=== PATIENT | female | born 1980 | race Caucasian/White ===

== ENCOUNTER 2020-07-07 07:18 | Emergency (ER) | payer OTHER ==
[2020-07-07 07:24] VITALS: RESP 18; TEMP 98.2
--- NOTE | 2020-07-07 07:43 | ED ---
Abdominal Pain HPI - General Chief Complaint: Abdominal Pain Stated Complaint: Abdominal Pain, nausea Time Seen by Provider: 07/07/20 07:26 Source: patient Mode of arrival: ambulatory Limitations: no limitations - History of Present Illness Initial Comments: 40yo female with hx of pancreatitis, cholecystectomy, "stones in my stool"- currently following [facility], gastric sleeve, chronic chest pain/neck pain with hx of clean cardiac catheterization presenting to the ER today for cc of abdominal pain. pt statse she has had upper abdominal pain since sunday, pt states that she thought it would go away by now. pateint states that she has epigastric pain and when in triage it was more left sided but right now during history taking mroe right sided. she states she is seeing GI at [facility] for "stone in my stool" and they are currently running tests. Patient has abdominal MRI in April. Patient denies bloody or dark stools, admits to nausea without vom iting. Increased pain wtih eating. Denies chest pain, dyspnea. Patient appears well nontoxic in no acute distress. - Related Data Allergies Allergy/AdvReac Type Severity Reaction Status Date / Time amoxicillin [From Augmentin] AdvReac Nausea & Verified 07/07/20 07:24 Vomiting clavulanic acid AdvReac Nausea & Verified 07/07/20 07:24 [From Augmentin] Vomiting dicyclomine [From Bentyl] AdvReac Rash/Hives Verified 07/07/20 07:24 morphine AdvReac Abdominal Verified 07/07/20 07:24 Pain Albxshx-Rel-Kiq Reductase AdvReac joint Verified 07/07/20 07:24 Inhibitor inflammation Sulfa (Sulfonamide AdvReac Abdominal Verified 07/07/20 07:24 Antibiotics) Pain tree nut [Nut] AdvReac Abdominal Verified 07/07/20 07:24 Pain Review of Systems ROS Statement: Those systems with pertinent positive or pertinent negative responses have been documented in the HPI. ROS Other: All systems not noted in ROS Statement are negative. Past Medical History Past Medical History: Chest Pain / Angina, GERD/Reflux, Hypertension, Rheumatoid Arthritis (RA) Additional Past Medical History / Comment(s): obesity History of Any Multi-Drug Resistant Organisms: MRSA Date of last positivie culture/infection: 2005 Past Surgical History: Cholecystectomy, Hysterectomy Additional Past Surgical History / Comment(s): gastric sleeve,eye Past Psychological History: ADD/ADHD, Anxiety Smoking Status: Never smoker Past Alcohol Use History: None Reported Past Drug Use History: None Reported General Exam - General Exam Comments Initial Comments: General: The patient is awake and alert, in no distress Eye: +3 mm pupils are equal, round and reactive to light, extra-ocular movements are intact. No nystagmus. There is normal conjunctiva bilaterally. No signs of icterus. Ears, nose, mouth and throat: There are moist mucous membranes and no oral lesions. Neck: The neck is supple, there is no tenderness or JVD. Cardiovascular: There is a regular rate and rhythm. No murmur, rub or gallop is appreciated. Respiratory: Lungs are clear to auscultation, respirations are non-labored, breath sounds are equal. No wheezes, stridor, rales, or rhonchi. Gastrointestinal: Soft, non-distended, mild epigastric/upper abdominal pain, abdomen without masses or organomegaly noted. There is no rebound or guarding present. Musculoskeletal: Normal ROM, no tenderness. Strength 5/5. Sensation intact. Radial and DP pulses equal bilaterally 2+. Neurological: A&O x 3. CN II-XII intact grossly, There are no obvious motor or sensory deficits. Coordination appears grossly intact. Speech is normal. Skin: Skin is warm and dry and no rashes or lesions are noted. Psychiatric: Cooperative, appropriate mood & affect, normal judgment. Limitations: no limitations Course Vital Signs 07/07/20 07/07/20 07/07/20 07:20 08:24 09:28 Temperature 98.2 F Pulse Rate 78 83 72 Respiratory 18 18 18 Rate Blood Pressure 135/90 142/95 140/99 O2 Sat by Pulse 98 98 97 Oximetry Medical Decision Making - Medical Decision Making 40 year old feel presenting for reproducible abdominal pain. Labs stable. Lipase WNL. Hx of cholecystectomy. (-) murphys sign. patient CT (-). Pt appears well nontoxic. vs wihin no critical limits. at this time i feel pt is stable for discharge with pcp and GI f/u. return for worsening symptoms . Dr damian agreeable to care plan. - Lab Data Result diagrams: 07/07/20 07:45 07/07/20 07:45 Lab Results 07/07/20 07/07/20 07/07/20 Range/Units 07:45 07:45 07:45 WBC 5.0 (3.8-10.6) k/uL RBC 4.47 (3.80-5.40) m/uL Hgb 12.8 (11.4-16.0) gm/dL Hct 36.7 (34.0-46.0) % MCV 82.1 (80.0-100.0) fL MCH 28.6 (25.0-35.0) pg MCHC 34.8 (31.0-37.0) g/dL RDW 14.0 (11.5-15.5) % Plt Count 287 (150-450) k/uL MPV 7.4 Neutrophils % 58 % Lymphocytes % 33 % Monocytes % 5 % Eosinophils % 3 % Basophils % 1 % Neutrophils # 2.9 (1.3-7.7) k/uL Lymphocytes # 1.7 (1.0-4.8) k/uL Monocytes # 0.2 (0-1.0) k/uL Eosinophils # 0.1 (0-0.7) k/uL Basophils # 0.0 (0-0.2) k/uL Sodium 137 (137-145) mmol/L Potassium 4.2 (3.5-5.1) mmol/L Chloride 104 (98-107) mmol/L Carbon Dioxide 25 (22-30) mmol/L Anion Gap 8 mmol/L BUN 11 (7-17) mg/dL Creatinine 0.87 (0.52-1.04) mg/dL Est GFR (CKD-EPI)AfAm >90 (>60 ml/min/1.73 sqM) Est GFR (CKD-EPI)NonAf 84 (>60 ml/min/1.73 sqM) Glucose 103 H (74-99) mg/dL Plasma Lactic Acid Amador 1.1 (0.7-2.0) mmol/L Calcium 8.9 (8.4-10.2) mg/dL Total Bilirubin 0.4 (0.2-1.3) mg/dL AST 26 (14-36) U/L ALT 25 (4-34) U/L Alkaline Phosphatase 73 (38-126) U/L Troponin I (0.000-0.034) ng/mL Total Protein 7.1 (6.3-8.2) g/dL Albumin 3.8 (3.5-5.0) g/dL Amylase 46 (30-110) U/L Lipase 102 (23-300) U/L Urine Color Urine Appearance (Clear) Urine pH (5.0-8.0) Ur Specific [place] (1.001-1.035) Urine Protein (Negative) Urine Glucose (UA) (Negative) Urine Ketones (Negative) Urine Blood (Negative) Urine Nitrite (Negative) Urine Bilirubin (Negative) Urine Urobilinogen (<2.0) mg/dL Ur Leukocyte Esterase (Negative) 07/07/20 07/07/20 Range/Units 07:45 08:11 WBC (3.8-10.6) k/uL RBC (3.80-5.40) m/uL Hgb (11.4-16.0) gm/dL Hct (34.0-46.0) % MCV (80.0-100.0) fL MCH (25.0-35.0) pg MCHC (31.0-37.0) g/dL RDW (11.5-15.5) % Plt Count (150-450) k/uL MPV Neutrophils % % Lymphocytes % % Monocytes % % Eosinophils % % Basophils % % Neutrophils # (1.3-7.7) k/uL Lymphocytes # (1.0-4.8) k/uL Monocytes # (0-1.0) k/uL Eosinophils # (0-0.7) k/uL Basophils # (0-0.2) k/uL Sodium (137-145) mmol/L Potassium (3.5-5.1) mmol/L Chloride (98-107) mmol/L Carbon Dioxide (22-30) mmol/L Anion Gap mmol/L BUN (7-17) mg/dL Creatinine (0.52-1.04) mg/dL Est GFR (CKD-EPI)AfAm (>60 ml/min/1.73 sqM) Est GFR (CKD-EPI)NonAf (>60 ml/min/1.73 sqM) Glucose (74-99) mg/dL Plasma Lactic Acid Amador (0.7-2.0) mmol/L Calcium (8.4-10.2) mg/dL Total Bilirubin (0.2-1.3) mg/dL AST (14-36) U/L ALT (4-34) U/L Alkaline Phosphatase (38-126) U/L Troponin I <0.012 (0.000-0.034) ng/mL Total Protein (6.3-8.2) g/dL Albumin (3.5-5.0) g/dL Amylase (30-110) U/L Lipase (23-300) U/L Urine Color Yellow Urine Appearance Clear (Clear) Urine pH 7.5 (5.0-8.0) Ur Specific [place] 1.047 H (1.001-1.035) Urine Protein Negative (Negative) Urine Glucose (UA) Negative (Negative) Urine Ketones Negative (Negative) Urine Blood Negative (Negative) Urine Nitrite Negative (Negative) Urine Bilirubin Negative (Negative) Urine Urobilinogen <2.0 (<2.0) mg/dL Ur Leukocyte Esterase Negative (Negative) Disposition Clinical Impression: Abdominal pain, Nausea Disposition: HOME SELF-CARE Condition: Good Instructions (If sedation given, give patient instructions): Abdominal Pain (ED) Additional Instructions: Please use medication as discussed. Please follow-up with family doctor in the next 2 days. Please return to emergency room if the symptoms increase or worsen or for any other concerns. Is patient prescribed a controlled substance at d/c from ED?: No Referrals: Dot Walter MD [Primary Care Provider] - 1-2 days Time of Disposition: 09:04
[2020-07-07] MEDS ORDERED: HYDROmorphone 0.5 MG/0.5 ML SYRINGE IVP STA (07:52)
[2020-07-07] MEDS ORDERED: ONDANSETRON 4 MG/2 ML VIAL IVP STA (07:52)
[2020-07-07 08:04] LABS: Basophils % (A) 1 %; Eosinophils # (A) 0.1 k/uL (0-0.7); Eosinophils % (A) 3 %; HCT 36.7 % (34.0-46.0); HGB 12.8 gm/dL (11.4-16.0); Lymphocytes # (A) 1.7 k/uL (1.0-4.8); Lymphocytes % (A) 33 %; MCH 28.6 pg (25.0-35.0); MCHC 34.8 g/dL (31.0-37.0); MCV 82.1 fL (80.0-100.0); Mean Platelet Volume 7.4; Monocytes # (A) 0.2 k/uL (0-1.0); Monocytes % (A) 5 %; Neutrophils # (A) 2.9 k/uL (1.3-7.7); Neutrophils % (A) 58 %; Platelet Count 287 k/uL (150-450); RBC 4.47 m/uL (3.80-5.40)
[2020-07-07 08:16] LABS: ALT 25 U/L (4-34); AST 26 U/L (14-36); African American GFR (CKD) >90 (>60 ml/min/1.73 sqM); Albumin 3.8 g/dL (3.5-5.0); Alkaline Phosphatase 73 U/L (38-126); Amylase 46 U/L (30-110); Anion Gap 8 mmol/L; Blood Urea Nitrogen 11 mg/dL (7-17); Calcium 8.9 mg/dL (8.4-10.2); Carbon Dioxide 25 mmol/L (22-30); Chloride 104 mmol/L (98-107); Glucose 103 mg/dL (74-99); Lipase 102 U/L (23-300); Non-African American GFR(CKD) 84 (>60 ml/min/1.73 sqM); Potassium 4.2 mmol/L (3.5-5.1); Sodium 137 mmol/L (137-145); Total Bilirubin 0.4 mg/dL (0.2-1.3); Total Protein 7.1 g/dL (6.3-8.2)
--- NOTE | 2020-07-07 08:18 | CT ---
EXAMINATION TYPE: CT abdomen pelvis w con DATE OF EXAM: 07/07/2020 HISTORY: LUQ pain and epigastric pain. CT DLP: 2786.4mGycm Automated Exposure Control for Dose Reduction was Utilized. CONTRAST: CT scan of the abdomen and pelvis is performed without oral but with IV Contrast, patient injected wi th 100 mL of Isovue 300. COMPARISON: None. FINDINGS: LUNG BASES: No significant abnormality is appreciated. LIVER/GB: Liver is diffusely low dense consistent with diffuse fatty infiltration and/or underlying h epatocellular disease. Cholecystectomy clips are present. Liver size upper limits of normal. PANCREAS: No significant abnormality is seen. SPLEEN: Mild splenomegaly at 13.7 cm long axis coronal image 68. ADRENALS: No significant abnormality is seen. KIDNEYS: No significant abnormality is seen. BOWEL: Suboptimal evaluation of bowel without enteric contrast. Surgical changes from gastric sleeve procedure noted. No suspicious small or large bowel dilatation. Normal-appearing appendix. UTERUS/ADNEXA: Versus surgically absent or atrophic in appearance. Scattered pelvic phleboliths. LYMPH NODES: No greater than 1cm abdominal or pelvic lymph nodes are appreciated. OSSEOUS STRUCTURES: No significant abnormality is seen. OTHER: No significant additional abnormality is seen. IMPRESSION: No bowel obstruction. No acute findings are evident.
[2020-07-07 09:00] LABS: Appearance,Urine Clear (Clear); Bilirubin,Urine Negative (Negative); Blood,Urine Negative (Negative); Color,Urine Yellow; Glucose,Urine (UA) Negative (Negative); Ketones,Urine Negative (Negative); Leukocyte Esterase,Urine Negative (Negative); Nitrite,Urine Negative (Negative); PH, Urine 7.5 (5.0-8.0); Protein,Urine Negative (Negative); Urobilinogen,Urine <2.0 mg/dL (<2.0)
[2020-07-07 09:01] LABS: Specific Gravity,Urine 1.047 (1.001-1.035)
[2020-07-07 09:30] VITALS: BP 140/99; PULSE 72
== END 2020-07-07 09:27 | disposition home or self-care (01) ==
LOC: EC 07:18
DX: R10.10 Upper abdominal pain, unspecified (principal); R11.0 Nausea; E66.9 Obesity, unspecified; Z68.42 Body mass index [BMI] 45.0-49.9, adult; I10 Essential (primary) hypertension; Z88.0 Allergy status to penicillin; Z88.1 Allergy status to other antibiotic agents; Z88.5 Allergy status to narcotic agent; Z88.8 Allergy status to other drugs, medicaments and biological substances; Z91.048 Other nonmedicinal substance allergy status; Z88.2 Allergy status to sulfonamides; Z90.49 Acquired absence of other specified parts of digestive tract
CPT/HCPCS: 36415; 93005; 80053; 82150; 83605; 83690; 84484; 85025; 81003; 74177; 99284; 96374; 96375; J2405; J1170; Q9967

== ENCOUNTER → 2020-07-13 | Outpatient (CLI) | payer OTHER ==
--- NOTE | 2020-07-13 17:37 | EEG ---
ELECTROENCEPHALOGRAM REPORT DATE OF SERVICE: 07/13/2020 PREAMBLE: This is a 40-year-old female, who has episodes during her sleep, when she feels an aura and then her upper and lower extremities will start jerking. She has bitten her tongue a couple of times. Sleep studies have been negative. The patient has history of bipolar disorder, and anxiety and depression. Current medications include hyoscyamine, Prevacid, aspirin, Imdur, Coreg, hydroxyzine, Strattera, Pristiq and Wellbutrin. EEG FINDINGS: This is a 21 channel routine EEG recording in a patient utilizing 10/20 international system with referential and bipolar montages. Background consists of well developed, well regulated, moderate to high amplitude activity in 10 hertz alpha. Background is posterior dominant and reactive to eye opening and closing. Photic driving response was not seen. Mild drowsiness was seen with presence of bilaterally symmetric theta frequency rhythm. Deeper stages of sleep were not seen. No focal or generalized epileptiform activity was seen. EKG channel showed no arrhythmia. IMPRESSION: This is a normal awake and drowsy EEG. No focal, lateralized, or epileptiform activity was seen. MMODL / IJN: [id number] /
== END | disposition home or self-care (01) ==
LOC: NEUROMAIN 08:00
PROVIDERS: ATTEND Psychiatry & Neurology Neurology
DX: G40.909 Epilepsy, unspecified, not intractable, without status epilepticus (principal)
CPT/HCPCS: 95816

== ENCOUNTER 2020-07-24 04:51 | Emergency (ER) | payer OTHER ==
[2020-07-24 04:58] VITALS: BP 155/99; PULSE 93; RESP 18; TEMP 98.2
[2020-07-24 05:59] LABS: Basophils % (A) 1 %; Eosinophils # (A) 0.2 k/uL (0-0.7); Eosinophils % (A) 2 %; HCT 37.2 % (34.0-46.0); HGB 12.6 gm/dL (11.4-16.0); Lymphocytes # (A) 1.3 k/uL (1.0-4.8); Lymphocytes % (A) 20 %; MCH 27.9 pg (25.0-35.0); MCHC 33.8 g/dL (31.0-37.0); MCV 82.7 fL (80.0-100.0); Mean Platelet Volume 7.5; Monocytes # (A) 0.3 k/uL (0-1.0); Monocytes % (A) 5 %; Neutrophils # (A) 4.5 k/uL (1.3-7.7); Neutrophils % (A) 71 %; Platelet Count 230 k/uL (150-450); RDW 13.9 % (11.5-15.5); WBC 6.3 k/uL (3.8-10.6)
--- NOTE | 2020-07-24 06:13 | ED ---
General Adult HPI - General Chief complaint: Skin/Abscess/Foreign Body Stated complaint: lump in armpit Time Seen by Provider: 07/24/20 04:58 Source: patient Mode of arrival: ambulatory - History of Present Illness Initial comments: This patient is 40-year-old woman who presents to be evaluated for a lump in her left axilla. She states this is come on over the past few days. It is becoming tender and make it difficult for sleep. She does note that a couple of weeks ago she had started treatment with Bactrim for enlarged cervical or submandibular lymph nodes. This was prescribed by Dr. Mccabe, who she states was going to send her for imaging, however the cervical nodes have nearly entirely resolved. Onset/Timin -: days(s) Location: chest Radiation: non-radiation Consistency: constant Improves with: none Worsens with: none Associated Symptoms: denies other symptoms - Related Data Allergies Allergy/AdvReac Type Severity Reaction Status Date / Time amoxicillin [From Augmentin] AdvReac Nausea & Verified 07/24/20 04:58 Vomiting clavulanic acid AdvReac Nausea & Verified 07/24/20 04:58 [From Augmentin] Vomiting dicyclomine [From Bentyl] AdvReac Rash/Hives Verified 07/24/20 04:58 morphine AdvReac Abdominal Verified 07/24/20 04:58 Pain Mnbgdwx-Vvs-Nhc Reductase AdvReac joint Verified 07/24/20 04:58 Inhibitor inflammation Sulfa (Sulfonamide AdvReac Abdominal Verified 07/24/20 04:58 Antibiotics) Pain tree nut [Nut] AdvReac Abdominal Verified 07/24/20 04:58 Pain Review of Systems ROS Statement: Those systems with pertinent positive or pertinent negative responses have been documented in the HPI. ROS Other: All systems not noted in ROS Statement are negative. Constitutional: Denies: fever, chills Respiratory: Denies: cough, dyspnea Cardiovascular: Denies: chest pain, palpitations Gastrointestinal: Denies: abdominal pain, nausea, vomiting, diarrhea Genitourinary: Denies: dysuria, hematuria Musculoskeletal: Denies: back pain Skin: Denies: rash Neurological: Denies: headache, weakness, numbness Past Medical History Past Medical History: Chest Pain / Angina, GERD/Reflux, Hypertension, Rheumatoid Arthritis (RA) Additional Past Medical History / Comment(s): obesity History of Any Multi-Drug Resistant Organisms: MRSA Date of last positivie culture/infection: 2005 Past Surgical History: Cholecystectomy, Hysterectomy Additional Past Surgical History / Comment(s): gastric sleeve,eye Past Psychological History: ADD/ADHD, Anxiety Smoking Status: Never smoker Past Alcohol Use History: None Reported Past Drug Use History: None Reported General Exam General appearance: alert, in no apparent distress Head exam: Present: atraumatic, normocephalic Eye exam: Present: normal appearance. Absent: scleral icterus, conjunctival injection ENT exam: Present: normal oropharynx Neck exam: Present: normal inspection, full ROM. Absent: tenderness, meningismus, lymphadenopathy Respiratory exam: Present: normal lung sounds bilaterally. Absent: respiratory distress, wheezes, rales, rhonchi, stridor Cardiovascular Exam: Present: regular rate, normal rhythm, normal heart sounds. Absent: systolic murmur, diastolic murmur, rubs, gallop GI/Abdominal exam: Present: soft. Absent: distended, tenderness, guarding, rebound, rigid, mass Extremities exam: Present: normal inspection, normal capillary refill. Absent: pedal edema, calf tenderness Back exam: Present: normal inspection. Absent: CVA tenderness (R), CVA tenderness (L) Neurological exam: Present: alert Skin exam: Present: warm, dry, intact, normal color. Absent: rash Course Vital Signs 07/24/20 04:56 Temperature 98.2 F Pulse Rate 93 Respiratory 18 Rate Blood Pressure 155/99 O2 Sat by Pulse 100 Oximetry Medical Decision Making - Lab Data Result diagrams: 07/24/20 05:41 07/24/20 05:41 Lab Results 07/24/20 07/24/20 Range/Units 05:41 05:41 WBC 6.3 (3.8-10.6) k/uL RBC 4.50 (3.80-5.40) m/uL Hgb 12.6 (11.4-16.0) gm/dL Hct 37.2 (34.0-46.0) % MCV 82.7 (80.0-100.0) fL MCH 27.9 (25.0-35.0) pg MCHC 33.8 (31.0-37.0) g/dL RDW 13.9 (11.5-15.5) % Plt Count 230 (150-450) k/uL MPV 7.5 Neutrophils % 71 % Lymphocytes % 20 % Monocytes % 5 % Eosinophils % 2 % Basophils % 1 % Neutrophils # 4.5 (1.3-7.7) k/uL Lymphocytes # 1.3 (1.0-4.8) k/uL Monocytes # 0.3 (0-1.0) k/uL Eosinophils # 0.2 (0-0.7) k/uL Basophils # 0.0 (0-0.2) k/uL Sodium 135 L (137-145) mmol/L Potassium 4.1 (3.5-5.1) mmol/L Chloride 103 (98-107) mmol/L Carbon Dioxide 24 (22-30) mmol/L Anion Gap 8 mmol/L BUN 11 (7-17) mg/dL Creatinine 0.82 (0.52-1.04) mg/dL Est GFR (CKD-EPI)AfAm >90 (>60 ml/min/1.73 sqM) Est GFR (CKD-EPI)NonAf >90 (>60 ml/min/1.73 sqM) Glucose 114 H (74-99) mg/dL Calcium 8.7 (8.4-10.2) mg/dL Total Bilirubin 0.3 (0.2-1.3) mg/dL AST 22 (14-36) U/L ALT 20 (4-34) U/L Alkaline Phosphatase 76 (38-126) U/L Total Protein 6.8 (6.3-8.2) g/dL Albumin 3.7 (3.5-5.0) g/dL Disposition Clinical Impression: Lymphadenitis Disposition: HOME SELF-CARE Condition: Good Instructions (If sedation given, give patient instructions): Adenitis (ED) Is patient prescribed a controlled substance at d/c from ED?: No Referrals: Dot Walter MD [Primary Care Provider] - 1-2 days
[2020-07-24 06:14] LABS: ALT 20 U/L (4-34); AST 22 U/L (14-36); African American GFR (CKD) >90 (>60 ml/min/1.73 sqM); Albumin 3.7 g/dL (3.5-5.0); Alkaline Phosphatase 76 U/L (38-126); Anion Gap 8 mmol/L; Blood Urea Nitrogen 11 mg/dL (7-17); Calcium 8.7 mg/dL (8.4-10.2); Carbon Dioxide 24 mmol/L (22-30); Chloride 103 mmol/L (98-107); Glucose 114 mg/dL (74-99); Non-African American GFR(CKD) >90 (>60 ml/min/1.73 sqM); Potassium 4.1 mmol/L (3.5-5.1); Sodium 135 mmol/L (137-145); Total Bilirubin 0.3 mg/dL (0.2-1.3); Total Protein 6.8 g/dL (6.3-8.2)
== END 2020-07-24 07:00 | disposition home or self-care (01) ==
LOC: EC 04:51
DX: I88.9 Nonspecific lymphadenitis, unspecified (principal); I10 Essential (primary) hypertension; M06.9 Rheumatoid arthritis, unspecified; K21.9 Gastro-esophageal reflux disease without esophagitis
CPT/HCPCS: 36415; 80053; 85025; 99283

== ENCOUNTER 2020-08-04 07:20 | Day surgery (SDC) | payer OTHER ==
[2020-07-30 12:09] VITALS: BMI 48.6
[~2020-08-04 07:20] MED LIST: CLINDAMYCIN 600 MG in DEXTROSE 5% IN WATER 50 ML IVPB PRN; DEXAMETHASONE SOD PHOSPHATE 4 MG/ML 1 ML VIAL IV ONE; FAMOTIDINE 20 MG/2 ML VIAL IV PRN; HYDROmorphone 0.5 MG/0.5 ML SYRINGE IVP PRN; LACTATED RINGERS 1,000 ML IV SCH; LIDOCAINE 1% (10MG/ML) FOR IV START INTRADERMA PRN; MIDAZOLAM 2 MG/2 ML VIAL IV PRN; ONDANSETRON 4 MG/2 ML VIAL IVP PRN
[2020-08-04 08:10] LABS: Glucose,Whole Blood 109 mg/dL (75-99)
[2020-08-04] MEDS: ONDANSETRON 4 MG/2 ML VIAL IVP ONE ×2 (08:18→09:20)
[2020-08-04] MEDS ORDERED: ROCURONIUM 10 MG/ML (5 ML VIAL) IV ONE (08:22)
[2020-08-04] MEDS ORDERED: SUCCINYLCHOLINE CHLORIDE 100 MG/5 ML SYR IV ONE (08:22)
[2020-08-04] MEDS ORDERED: GLYCOPYRROLATE 0.2 MG/ML 2 ML VIAL ONE (08:22)
[2020-08-04] MEDS ORDERED: LIDOCAINE 1% INJ 10MG/ML (20 ML MDV) ONE (08:22)
[2020-08-04] MEDS ORDERED: PROPOFOL 10 MG/ML 20 ML VIAL IV ONE (08:22)
[2020-08-04] MEDS ORDERED: fentaNYL (PF) 50 MCG/ML 2 ML AMP ONE (08:22)
[2020-08-04] MEDS ORDERED: NEOSTIGMINE 1 MG/ML 10 ML VIAL ONE (08:22)
--- NOTE | 2020-08-04 08:53 | P.OP ---
Date of Procedure: 08/04/20 Preoperative Diagnosis: Posterior oropharynx lesion Postoperative Diagnosis: Same Procedure(s) Performed: Direct pharyngoscopy with excision of posterior oropharynx lesion Anesthesia: BENOITA Surgeon: Erickson Pacheco Estimated Blood Loss (ml): 1 Pathology: other (Posterior oropharynx lesion) Condition: stable Disposition: PACU Indications for Procedure: This 40-year-old white female with a long-standing posterior oropharyngeal lesion which outside ENT had been monitoring and has not changed particularly but the patient has decided to proceed with excision. 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 The patient underwent induction of general anesthesia with oral endotracheal intubation without difficulty. The patient was prepped and draped in usual aseptic fashion. The McIvor mouth gag was placed and suspended on the Whitman stand. The oropharynx was well visualized including the lesion. This was just to the right of the midline. This was excised grossly entirely needlepoint electrocautery to the submucosa. The muscular layer was left intact. Excellent hemostasis was noted. No other lesions were noted. The guidewire mouth gag was removed and the patient was allowed to emerge from general anesthesia having tolerated procedure well and was extubated in the operating suite and transferred to the postop recovery area in satisfactory condition.
[2020-08-04 09:08] VITALS: TEMP 96.9
[2020-08-04 09:22] VITALS: RESP 16
[2020-08-04 10:05] VITALS: BP 146/77; PULSE 70
== END 2020-08-04 10:26 | disposition home or self-care (01) ==
LOC: OR 07:20
PROVIDERS: ATTEND Otolaryngology
DX: J39.2 Other diseases of pharynx (principal); K21.9 Gastro-esophageal reflux disease without esophagitis; J45.909 Unspecified asthma, uncomplicated; E78.00 Pure hypercholesterolemia, unspecified; I10 Essential (primary) hypertension; K58.9 Irritable bowel syndrome, unspecified; E66.09 Other obesity due to excess calories; G47.30 Sleep apnea, unspecified; F32.9 Major depressive disorder, single episode, unspecified; M79.7 Fibromyalgia; D10.5 Benign neoplasm of other parts of oropharynx; E66.01 Morbid (severe) obesity due to excess calories; Z68.42 Body mass index [BMI] 45.0-49.9, adult; Z79.82 Long term (current) use of aspirin; Z79.899 Other long term (current) drug therapy; Z88.1 Allergy status to other antibiotic agents; Z88.5 Allergy status to narcotic agent; Z91.010 Allergy to peanuts; Z88.2 Allergy status to sulfonamides; Z88.8 Allergy status to other drugs, medicaments and biological substances; Z91.048 Other nonmedicinal substance allergy status; Z98.84 Bariatric surgery status; Z82.49 Family history of ischemic heart disease and other diseases of the circulatory system; Z82.61 Family history of arthritis; Z83.3 Family history of diabetes mellitus; Z82.5 Family history of asthma and other chronic lower respiratory diseases; Z84.1 Family history of disorders of kidney and ureter; Z84.89 Family history of other specified conditions
CPT/HCPCS: 42999; 88305; J1100; J2710; J2405; J2001; J3010; J0330; J2704

== ENCOUNTER → 2020-09-16 | Outpatient (CLI) | payer OTHER ==
--- NOTE | 2020-09-18 19:23 | CT ---
EXAMINATION TYPE: CT soft tissue neck w con DATE OF EXAM: 09/16/2020 COMPARISON: None HISTORY: 40-year-old female NECK SWELLING AND PAIN TECHNIQUE: Contiguous axial scanning of the soft tissues of the neck performed with IV Contrast, jovanna ent injected with 100 mL of Isovue 300. Coronal/sagittal reconstructions performed. CT DLP: 803.60 mGycm Automated exposure control for dose reduction was used. FINDINGS: Visualized intracranial structures, orbits and globes, paranasal sinuses, and mastoid air cells are c lear. The nasopharynx and oropharynx are clear. Epiglottis and prevertebral soft tissues are within normal limits. The tracheal column and visualized upper lungs are clear. Bovine configuration to the aortic arch. Small 7 mm hypodense nodule right lobe of the thyroid gland. Thyroid gland otherwise appears satisfac tory as does the right submandibular gland. Left submandibular gland is atrophied. Parotid glands appear satisfactory with a couple tiny parotid space lymph nodes. Borderline enlarged 1.5 cm short axis left upper cervical lymph node at the level of the hyoid bone, coronal image 33 probably reactive. Otherwise, scattered nonenlarged cervical lymph nodes are present on both sides of the neck. Moderate degenerative disc disease C6-C7 disc osteophyte complex. Straightening of the normal cervica l lordosis could be positional or due to muscle spasm. IMPRESSION: 1. A BORDERLINE ENLARGED 1.5 CM SHORT AXIS LEFT UPPER CERVICAL LYMPH NODE AT THE LEVEL OF THE HYOID B ONE. FINDINGS PROBABLY REACTIVE AND CAN BE FOLLOWED CLINICALLY. 2. THE LEFT SUBMANDIBULAR GLAND IS ATROPHIED. 3. OTHERWISE, NO SPECIFIC ABNORMALITY OF THE SOFT TISSUES OF THE NECK.
== END | disposition home or self-care (01) ==
LOC: RADCTMAIN 15:36
PROVIDERS: ATTEND Otolaryngology
DX: R22.1 Localized swelling, mass and lump, neck (principal)
CPT/HCPCS: 70491; Q9967

== ENCOUNTER 2020-10-07 11:56 | Day surgery (SDC) | payer OTHER ==
[2020-10-07 12:43] VITALS: TEMP 98.7
[2020-10-07 14:48] VITALS: BP 120/82; PULSE 87; RESP 16
--- NOTE | 2020-10-07 17:52 | US ---
EXAMINATION TYPE: US FNA first lesion DATE OF EXAM: 10/07/2020 COMPARISON: CT neck 09/16/2020 HISTORY: Left neck mass/swelling/lump. Left neck prominent lymph node. The procedure risks, benefits, and alternatives were discussed with the patient. All questions were a nswered. Informed consent was obtained. A formal timeout was completed prior to procedure. Maximal barrier technique was utilized. Ultrasound using sterile technique. The skin overlying the le ft neck lymph node was localized with ultrasound and the overlying skin prepped and draped. Lidocaine used for local anesthesia. 5 passes with a 25-gauge needle were made into the nodule under ultrasoun d guidance. Pathology department present for procedure confirmed adequate specimen. Aspirate specimen submitted for cytology and flow cytometry. Following the procedure hemostasis achieved. After lidoca ine administration, patient recently became tachycardic and clammy. A cold washcloth was applied to p atient's forehead. Patient quickly recovered and procedure continued without additional complication. IMPRESSION: Status post ultrasound-guided fine-needle aspiration of left neck lymph node. Cytology an d flow cytometry pending.
== END 2020-10-07 14:40 | disposition home or self-care (01) ==
LOC: RADPROMAIN 11:56
PROVIDERS: ATTEND Otolaryngology
DX: R22.1 Localized swelling, mass and lump, neck (principal); Z88.5 Allergy status to narcotic agent; Z91.018 Allergy to other foods; Z91.010 Allergy to peanuts; Z88.2 Allergy status to sulfonamides; Z88.8 Allergy status to other drugs, medicaments and biological substances; Z91.048 Other nonmedicinal substance allergy status
CPT/HCPCS: 10005; 88173; 88305

== ENCOUNTER → 2020-11-11 | Outpatient (CLI) | payer OTHER ==
[2020-11-11 10:00] LABS: INR 0.9 (<1.2); Partial Thromboplastin Time 23.1 sec (22.0-30.0); Prothrombin Time 9.7 sec (9.0-12.0)
[2020-11-11 16:09] LABS: HCT 38.7 % (37.2-46.3); HGB 12.1 g/dL (12.0-15.0); MCH 27.3 pg (27.0-32.0); MCHC 31.3 g/dL (32.0-37.0); MCV 87.2 fL (80.0-97.0); Mean Platelet Volume 10.7 fL (9.5-12.2); Platelet Count 293 X 10*3/uL (140-440); RBC 4.44 X 10*6/uL (4.10-5.20); RDW 14.1 % (11.5-14.5); WBC 5.24 X 10*3/uL (4.50-10.00)
[2020-11-11 17:39] LABS: % Iron Saturation 15.57 (12.00-45.00); African American GFR (CKD) 82.2 (60.0-200.0); Albumin 4.3 g/dL (3.80-4.90); Albumin/Globulin Ratio 1.54 (1.60-3.17); Anion Gap 8.2 mmol/L (4.00-12.00); Calcium 9.1 mg/dL (8.7-10.3); Carbon Dioxide 27.8 mmol/L (21.6-31.8); Chol/HDL Ratio 3.18; Globulin 2.8 g/dL (1.6-3.3); LDL Cholesterol,Calculated 73.4 mg/dL (0.0-131.0); Magnesium 1.8 mg/dL (1.5-2.4); Non-African American GFR(CKD) 70.9 (60.0-200.0); Phosphorus 3.2 mg/dL (2.4-5.1); Potassium 4.2 mmol/L (3.5-5.5); Total Bilirubin 0.2 mg/dL (0.3-1.2); Total Protein 7.1 g/dL (6.2-8.2); VLDL Calculation 46.6 mg/dL (5.00-40.00)
[2020-11-11 17:48] LABS: Ferritin 18.9 ng/mL (10.0-291.0)
[2020-11-11 18:00] LABS: Folate, Serum 18.3 ng/mL
[2020-11-12 12:25] LABS: Zinc, Serum 69 ug/dL (60-130)
== END | disposition home or self-care (01) ==
LOC: LABWHC1 08:13
PROVIDERS: ATTEND Surgery Plastic and Reconstructive Surgery
DX: N19 Unspecified kidney failure (principal); E66.01 Morbid (severe) obesity due to excess calories; E55.9 Vitamin D deficiency, unspecified; E89.1 Postprocedural hypoinsulinemia; D50.8 Other iron deficiency anemias; K90.89 Other intestinal malabsorption; K74.1 Hepatic sclerosis; K50.90 Crohn's disease, unspecified, without complications; R94.31 Abnormal electrocardiogram [ECG] [EKG]
CPT/HCPCS: 36415; 80053; 80061; 82306; 82525; 82607; 82728; 82746; 83036; 83540; 83550; 83735; 83970; 84100; 84134; 84255; 84425; 84443; 84590; 84630; 85027; 85610; 85730; 93005

== ENCOUNTER 2020-12-09 14:44 | Emergency (ER) | payer OTHER ==
--- NOTE | 2020-12-09 15:28 | ED ---
General Adult HPI - General Chief complaint: Extremity Problem,Nontraumatic Stated complaint: Right Foot Pain Time Seen by Provider: 12/09/20 15:02 Source: patient Mode of arrival: wheelchair Limitations: no limitations - History of Present Illness Initial comments: Dictation was produced using [employer] dictation software. please excuse any grammatical, word or spelling errors. Chief Complaint: 40-year-old female presents with right foot pain History of Present Illness: 40-year-old female she presents today with atraumatic right foot pain. She states her symptoms have been ongoing for the last several days. She states she was lying in bed when she began experience pain. States she's being worked up for possible multiple sclerosis. Has an appointment with the neurologist in the near future. Patient states that her pain is worse whenever she wiggles her toes. Denies that her pain is worse with weightbearing. He reports that the pain localizes to the lateral malleolus and entire foot. The ROS documented in this emergency department record has been reviewed and confirmed by me. Those systems with pertinent positive or negative responses have been documented in the HPI. All other systems are other negative and/or noncontributory. PHYSICAL EXAM: General Impression: Alert and oriented x3, not in acute distress HEENT: Normocephalic atraumatic, extra-ocular movements intact, pupils equal and reactive to light bilaterally, mucous membranes moist. Cardiovascular: Heart regular rate and rhythm Chest: Able to complete full sentences, no retractions, no tachypnea Abdomen: abdomen soft, non-tender, non-distended, no organomegaly Musculoskeletal: Pulses present and equal in all extremities, no peripheral edema Right lower extremity: Intact radial pulse and posterior tibial pulse, no skin changes compared to the left, toes are warm. No palpatory tenderness patient states that her symptoms are better with palpation. Motor: no focal deficits noted Neurological: CN II-XII grossly intact, no focal motor or sensory deficits noted Skin: Intact with no visualized rashes Psych: Normal affect and mood ED course: 40-year-old female presents with a chief complaint of subacute right lower extremity pain. She is having atraumatic pain and feels better with palpation. Physical examination is completely benign. Vital signs upon arrival are within acceptable limits.Foot and ankle x-rays shows no acute processes. At this point is not entirely clear what is causing patient's pain. Neurovascular exam is unremarkable. X-rays are negative. Patient reevaluated at bedside at 430 showing no acute processes. Patient advised to follow-up with primary care doctor. - Related Data Home Medications Medication Instructions Recorded Confirmed Aspirin [Adult Low Dose Aspirin EC] 81 mg PO HS 07/30/20 12/08/20 Atomoxetine HCl [Strattera] 60 mg PO QAM 07/30/20 12/08/20 Isosorbide Mononitrate [Imdur] 120 mg PO BID 07/30/20 12/08/20 Lansoprazole [Prevacid] 30 mg PO BID 07/30/20 12/08/20 buPROPion XL [Wellbutrin XL] 150 mg PO QAM 07/30/20 12/08/20 guanFACINE [Tenex] 2 mg PO HS 07/30/20 12/08/20 hydrOXYzine pamoate [Vistaril] 100 mg PO HS 07/30/20 12/08/20 Cyclobenzaprine [Flexeril] 5 mg PO HS 09/29/20 12/08/20 Acetaminophen Tab [Tylenol Tab] 1,000 mg PO Q6HR PRN 10/07/20 12/08/20 Albuterol Inhaler [Ventolin Hfa 1 puff INHALATION RT-QID PRN 11/10/20 12/08/20 Inhaler] Beclomethasone Dip 80 Mcg/Puff 1 puff INHALATION DAILY 11/10/20 12/08/20 [Qvar 80 mcg] Nitroglycerin Sl Tabs [Nitrostat] 0.4 mg SUBLINGUAL Q5M PRN 11/10/20 12/08/20 polyethylene glycoL 3350 [Miralax] 17 gm PO DAILY 11/10/20 12/08/20 Carvedilol [Coreg] 12.5 mg PO BID 12/08/20 12/08/20 Desvenlafaxine Succinate [Pristiq 25 mg PO DAILY 12/08/20 12/08/20 ER] Allergies Allergy/AdvReac Type Severity Reaction Status Date / Time budesonide [From Symbicort] Allergy worse Verified 12/08/20 09:21 allergy symptoms formoterol [From Symbicort] Allergy worse Verified 12/08/20 09:21 allergy symptoms magnesium sulfate Allergy Rash/Hives Verified 12/08/20 09:21 [From Epsom Salt] magnesium sulfate Allergy Rash/Hives Verified 12/08/20 09:21 [From Epsom Salt] methenamine [From Uribel] Allergy Rash/Hives Verified 12/08/20 09:21 methylene blue [From Uribel] Allergy Rash/Hives Verified 12/08/20 09:21 mold Allergy Unknown Verified 12/08/20 09:21 mushroom Allergy Abdominal Verified 12/08/20 09:21 Pain oats Allergy Abdominal Verified 12/08/20 09:21 Pain oxcarbazepine Allergy Rash/Hives Verified 12/08/20 09:21 [From Trileptal] salicylates [From Uribel] Allergy Rash/Hives Verified 12/08/20 09:21 sodium phosphate Allergy Rash/Hives Verified 12/08/20 09:21 [From Uribel] amoxicillin [From Augmentin] AdvReac Nausea & Verified 12/08/20 09:21 Vomiting clavulanic acid AdvReac Nausea & Verified 12/08/20 09:21 [From Augmentin] Vomiting dicyclomine [From Bentyl] AdvReac Rash/Hives Verified 12/08/20 09:21 levocetirizine [From Xyzal] AdvReac INSOMNIA Verified 12/08/20 09:39 montelukast [From Singulair] AdvReac "MAKES ME Verified 12/08/20 09:39 MENTALLY UNSTABLE" morphine AdvReac Abdominal Verified 12/08/20 09:21 Pain NSAIDS (Non-Steroidal AdvReac Unknown Verified 12/08/20 09:21 Anti-Inflamma Wjdbodv-Pvu-Nei Reductase AdvReac joint Verified 12/08/20 09:21 Inhibitor inflammation Sulfa (Sulfonamide AdvReac Abdominal Verified 12/08/20 09:21 Antibiotics) Pain tree nut [Nut] AdvReac Abdominal Verified 12/08/20 09:21 Pain dust Allergy Unknown Uncoded 12/08/20 09:21 urin D Allergy Rash/Hives Uncoded 12/08/20 09:21 Review of Systems ROS Statement: Those systems with pertinent positive or pertinent negative responses have been documented in the HPI. ROS Other: All systems not noted in ROS Statement are negative. Past Medical History Past Medical History: Chest Pain / Angina, Diabetes Mellitus, GERD/Reflux, Hypertension, Osteoarthritis (OA), Sleep Apnea/CPAP/BIPAP Additional Past Medical History / Comment(s): obesity, BOVINE AORTIC ARCH, POSSIBLE MS-ONGOING TESTS, BILAT CTR, ENLARGED LYMPH NODES IN THROAT, HERNIAS, USES C-PAP, PREDIABETIC History of Any Multi-Drug Resistant Organisms: MRSA Date of last positivie culture/infection: 2005 MDRO Source:: unknown Past Surgical History: Bariatric Surgery, Cholecystectomy, Hysterectomy Additional Past Surgical History / Comment(s): gastric sleeve, eye surgery , COLONOSCOPY/EGD, THROAT SX 07/2020, LYMPH NODE AND SALIVARY GLAND REMOVED Past Anesthesia/Blood Transfusion Reactions: No Reported Reaction Past Psychological History: ADD/ADHD, Anxiety, Depression Smoking Status: Never smoker - Past Family History Mother Family Medical History: Thyroid Disorder General Exam Limitations: no limitations Course Vital Signs 12/09/20 12/09/20 14:53 16:26 Temperature 98.8 F 97.8 F Pulse Rate 85 67 Respiratory 19 18 Rate Blood Pressure 138/89 137/80 O2 Sat by Pulse 97 98 Oximetry Disposition Clinical Impression: Foot pain, right Disposition: HOME SELF-CARE Condition: Good Instructions (If sedation given, give patient instructions): Metatarsalgia (DC) Is patient prescribed a controlled substance at d/c from ED?: No Referrals: Billy Jade III, MD [Primary Care Provider] - 1-2 days
--- NOTE | 2020-12-09 16:01 | XR ---
EXAMINATION TYPE: XR ankle complete RT, XR foot complete RT DATE OF EXAM: 12/09/2020 CLINICAL HISTORY: Pain. TECHNIQUE: Frontal, lateral and oblique images of the right ankle and foot are obtained. COMPARISON: None. FINDINGS: There is no acute fracture/dislocation evident in the right ankle. The ankle mortise appe ars within normal limits. The overlying soft tissue appears unremarkable. There is no acute fracture or dislocation evident in the right foot. Some varus positioning and flexi on of the distal fourth and fifth toes. The joint spaces in the right foot are preserved. Overlying soft tissue is unremarkable. IMPRESSION: Unremarkable studies.
[2020-12-09 16:27] VITALS: BP 137/80; PULSE 67; RESP 18; TEMP 97.8
== END 2020-12-09 16:44 | disposition home or self-care (01) ==
LOC: EC 14:44
DX: M79.671 Pain in right foot (principal); E11.9 Type 2 diabetes mellitus without complications; I10 Essential (primary) hypertension; K21.9 Gastro-esophageal reflux disease without esophagitis; M19.90 Unspecified osteoarthritis, unspecified site; F32.9 Major depressive disorder, single episode, unspecified; F41.9 Anxiety disorder, unspecified; Z79.51 Long term (current) use of inhaled steroids; Z79.82 Long term (current) use of aspirin; Z88.0 Allergy status to penicillin; Z88.1 Allergy status to other antibiotic agents; Z88.2 Allergy status to sulfonamides; Z88.5 Allergy status to narcotic agent; Z88.6 Allergy status to analgesic agent; Z88.8 Allergy status to other drugs, medicaments and biological substances; Z83.49 Family history of other endocrine, nutritional and metabolic diseases; Z90.49 Acquired absence of other specified parts of digestive tract; Z79.899 Other long term (current) drug therapy
CPT/HCPCS: 99283

== ENCOUNTER → 2020-12-27 | Outpatient (CLI) | payer OTHER ==
[2020-12-27 15:55] LABS: HCT 41.6 % (34.0-46.0); HGB 13.4 gm/dL (11.4-16.0); MCH 27.5 pg (25.0-35.0); MCHC 32.2 g/dL (31.0-37.0); MCV 85.3 fL (80.0-100.0); Mean Platelet Volume 7.7; Platelet Count 342 k/uL (150-450); RBC 4.88 m/uL (3.80-5.40); RDW 13.2 % (11.5-15.5); WBC 5.5 k/uL (3.8-10.6)
--- NOTE | 2020-12-27 16:05 | XR ---
EXAMINATION TYPE: XR chest 2V DATE OF EXAM: 12/27/2020 COMPARISON: None HISTORY: 40-year-old female shortness of breath, positive COVID 19 on 12/13/2020. Assess for infiltrat e. TECHNIQUE: Frontal and lateral views FINDINGS: The cardiomediastinal silhouette, aorta, and pulmonary vasculature are within normal limits. Lungs an d pleural spaces are clear. IMPRESSION: No acute cardiopulmonary process.
== END | disposition home or self-care (01) ==
LOC: RADXRMAIN 14:05
PROVIDERS: ATTEND Internal Medicine Cardiovascular Disease
DX: R06.02 Shortness of breath (principal)
CPT/HCPCS: 36415; 71046; 85027

== ENCOUNTER → 2021-02-15 | Outpatient (CLI) | payer OTHER ==
--- NOTE | 2021-02-15 12:27 | MM ---
Reason for exam: clinical finding. History: Family history of breast cancer in paternal grandmother at age 60. Benign excisional biopsy of the right breast, 2019. Took hormonal contraceptives for 15 years beginning at age 16. Physical Findings: Nurse did not find any significant physical abnormalities on exam. MG 3D Diag Mammo W/Cad SHANTA Bilateral CC and MLO view(s) were taken. There are scattered fibroglandular densities. There is no discrete abnormality including area of concern. These results were verbally communicated with the patient and result sheet given to the patient on 02/15/21. ASSESSMENT: Incomplete: need additional imaging evaluation, BI-RAD 0 RECOMMENDATION: Ultrasound of the left breast. Manage patient on a clinical basis.
--- NOTE | 2021-02-15 12:28 | USB ---
Reason for exam: additional evaluation requested from abnormal screening. History: Family history of breast cancer in paternal grandmother at age 60. Benign excisional biopsy of the right breast, 2019. Took hormonal contraceptives for 15 years beginning at age 16. US Breast Axilla LT Left breast axilla ultrasound demonstrates no cystic or solid lesion seen. Left axilla scanned. These results were verbally communicated with the patient and result sheet given to the patient on 02/15/21. ASSESSMENT: Benign, BI-RAD 2 RECOMMENDATION: Routine screening mammogram of both breasts in 1 year. Manage patient on a clinical basis.
== END | disposition home or self-care (01) ==
LOC: RADMAMWWP 08:08
PROVIDERS: ATTEND Family Medicine
DX: R92.8 Other abnormal and inconclusive findings on diagnostic imaging of breast (principal); Z80.3 Family history of malignant neoplasm of breast; Z78.0 Asymptomatic menopausal state
CPT/HCPCS: 77062; 77066

== ENCOUNTER 2021-02-24 08:13 | Emergency (ER) | payer OTHER ==
[2021-02-24] MEDS ORDERED: SODIUM CHLORIDE 0.9% 1,000 ML IV STA (08:35)
[2021-02-24] MEDS ORDERED: HYDROmorphone 0.5 MG/0.5 ML SYRINGE IVP STA (08:36)
[2021-02-24 08:51] LABS: Basophils % (A) 1 %; Eosinophils # (A) 0.2 k/uL (0-0.7); Eosinophils % (A) 3 %; HGB 13.3 gm/dL (11.4-16.0); Lymphocytes # (A) 2.3 k/uL (1.0-4.8); Lymphocytes % (A) 38 %; MCH 27.7 pg (25.0-35.0); MCV 81.4 fL (80.0-100.0); Mean Platelet Volume 7.9; Monocytes # (A) 0.3 k/uL (0-1.0); Monocytes % (A) 5 %; Neutrophils # (A) 3.2 k/uL (1.3-7.7); Neutrophils % (A) 53 %; Platelet Count 328 k/uL (150-450); RBC 4.79 m/uL (3.80-5.40); RDW 13.6 % (11.5-15.5); WBC 6.1 k/uL (3.8-10.6)
[2021-02-24 08:52] LABS: Appearance,Urine Clear (Clear); Bilirubin,Urine Negative (Negative); Blood,Urine Negative (Negative); Color,Urine Yellow; Glucose,Urine (UA) Negative (Negative); Ketones,Urine Negative (Negative); Leukocyte Esterase,Urine Negative (Negative); Nitrite,Urine Negative (Negative); Protein,Urine Negative (Negative); Specific Gravity,Urine 1.009 (1.001-1.035); Urobilinogen,Urine <2.0 mg/dL (<2.0)
[2021-02-24 09:00] LABS: Albumin 4.2 g/dL (3.5-5.0); Calcium 9.4 mg/dL (8.4-10.2); Potassium 4.6 mmol/L (3.5-5.1); Total Bilirubin 0.4 mg/dL (0.2-1.3); Total Protein 7.6 g/dL (6.3-8.2)
--- NOTE | 2021-02-24 10:18 | CT ---
EXAMINATION TYPE: CT abdomen pelvis w con DATE OF EXAM: 02/24/2021 HISTORY: Abd pain CT DLP: 2758.5mGycm Automated Exposure Control for Dose Reduction was Utilized. CONTRAST: CT scan of the abdomen and pelvis is performed with IV Contrast, patient injected with 100 mL of Isov ue 300. COMPARISON: CT abdomen and pelvis 07/07/2020. FINDINGS: LUNG BASES: No significant abnormality is appreciated. LIVER/GB: Liver is diffusely low dense consistent with diffuse fatty infiltration and/or underlying h epatocellular disease redemonstrated. Cholecystectomy clips are present. Liver size stable and mildly enlarged with prominent right hepatic lobe. PANCREAS: No significant abnormality is seen. SPLEEN: Mild splenomegaly at 14.3cm long axis coronal image 68. ADRENALS: No significant abnormality is seen. KIDNEYS: No significant abnormality is seen. BOWEL: Suboptimal evaluation of bowel without enteric contrast. Surgical changes from gastric sleeve procedure redemonstrated. No suspicious small or large bowel dilatation. Normal-appearing appendix re demonstrated. UTERUS/ADNEXA: Uterus is surgically absent or atrophic in appearance. Scattered pelvic phleboliths ar e redemonstrated. LYMPH NODES: No greater than 1cm abdominal or pelvic lymph nodes are appreciated. OSSEOUS STRUCTURES: No significant abnormality is seen. OTHER: No significant additional abnormality is seen. IMPRESSION: No bowel obstruction. No new or acute findings are evident.
--- NOTE | 2021-02-24 10:29 | ED ---
Abdominal Pain HPI - General Chief Complaint: Abdominal Pain Stated Complaint: Abd pain Time Seen by Provider: 02/24/21 08:25 Source: patient, RN notes reviewed Mode of arrival: ambulatory Limitations: no limitations - History of Present Illness Initial Comments: Patient is a 40-year-old female that presents to the emergency department complaining of left upper quadrant and right lower quadrant abdominal pain. Patient notes that she does have a history of pancreatitis and several other comorbidities and abdominal complaints. Patient notes that she has had normal bowel movements. She notes that she's been having pain for the past several days. She notes that she's follow-up with specialists and known can tell her why she has stones in her stool. Patient notes that her pain is approximate 7 out of 10 with no relief. Patient notes that she tastes salt in her mouth. She notes that she has a clear film over her urine which is weird.. Patient had a plethora of complaints while sitting up in bed in no apparent distress or pain. Patient denied chest pain shortness of breath headache nausea vomiting diarrhea constipation fever fatigue chills. - Related Data Home Medications Medication Instructions Recorded Confirmed Aspirin [Adult Low Dose Aspirin EC] 81 mg PO HS 07/30/20 01/12/21 Atomoxetine HCl [Strattera] 60 mg PO QAM 07/30/20 01/12/21 Isosorbide Mononitrate [Imdur] 120 mg PO BID 07/30/20 01/12/21 Lansoprazole [Prevacid] 30 mg PO BID 07/30/20 01/12/21 buPROPion XL [Wellbutrin XL] 150 mg PO QAM 07/30/20 01/12/21 guanFACINE [Tenex] 2 mg PO HS 07/30/20 01/12/21 hydrOXYzine pamoate [Vistaril] 100 mg PO HS 07/30/20 01/12/21 Acetaminophen Tab [Tylenol Tab] 1,000 mg PO Q6HR PRN 10/07/20 01/12/21 Albuterol Inhaler [Ventolin Hfa 1 puff INHALATION RT-QID PRN 11/10/20 01/12/21 Inhaler] Beclomethasone Dip 80 Mcg/Puff 1 puff INHALATION DAILY 11/10/20 01/12/21 [Qvar 80 mcg] Nitroglycerin Sl Tabs [Nitrostat] 0.4 mg SUBLINGUAL Q5M PRN 11/10/20 01/12/21 Carvedilol [Coreg] 12.5 mg PO BID 12/08/20 01/12/21 Desvenlafaxine Succinate [Pristiq 25 mg PO DAILY 12/08/20 01/12/21 ER] Ergocalciferol [Vitamin D2 (1250 1,250 mcg PO WEEKLY 01/12/21 01/12/21 Mcg = 92859 Iu)] Multivitamin/Iron/Folic Acid 1 each PO DAILY 01/12/21 01/12/21 [Centrum Adults Tablet] Allergies Allergy/AdvReac Type Severity Reaction Status Date / Time budesonide [From Symbicort] Allergy worse Verified 01/12/21 14:04 allergy symptoms formoterol [From Symbicort] Allergy worse Verified 01/12/21 14:04 allergy symptoms magnesium sulfate Allergy Rash/Hives Verified 02/24/21 08:19 [From Epsom Salt] magnesium sulfate Allergy Rash/Hives Verified 02/24/21 08:19 [From Epsom Salt] methenamine [From Uribel] Allergy Rash/Hives Verified 02/24/21 08:19 methylene blue [From Uribel] Allergy Rash/Hives Verified 02/24/21 08:19 mold Allergy Unknown Verified 02/24/21 08:19 mushroom Allergy Abdominal Verified 02/24/21 08:19 Pain oats Allergy Abdominal Verified 02/24/21 08:19 Pain oxcarbazepine Allergy Rash/Hives Verified 02/24/21 08:19 [From Trileptal] salicylates [From Uribel] Allergy Rash/Hives Verified 02/24/21 08:19 sodium phosphate Allergy Rash/Hives Verified 02/24/21 08:19 [From Uribel] amoxicillin [From Augmentin] AdvReac Nausea & Verified 02/24/21 08:19 Vomiting clavulanic acid AdvReac Nausea & Verified 02/24/21 08:19 [From Augmentin] Vomiting dicyclomine [From Bentyl] AdvReac Rash/Hives Verified 02/24/21 08:19 levocetirizine [From Xyzal] AdvReac INSOMNIA Verified 02/24/21 08:19 montelukast [From Singulair] AdvReac "MAKES ME Verified 02/24/21 08:19 MENTALLY UNSTABLE" morphine AdvReac Abdominal Verified 02/24/21 08:19 Pain NSAIDS (Non-Steroidal AdvReac Unknown Verified 02/24/21 08:19 Anti-Inflamma Jwmqasf-NHA-SaO Reductase AdvReac joint Verified 02/24/21 08:19 Inhibitor inflammation [Vhlsszc-Fpo-Dcu Reductase Inhibitor] Sulfa (Sulfonamide AdvReac Abdominal Verified 02/24/21 08:19 Antibiotics) Pain tree nut [Nut] AdvReac Abdominal Verified 02/24/21 08:19 Pain dust Allergy Unknown Uncoded 02/24/21 08:19 urin D Allergy Rash/Hives Uncoded 02/24/21 08:19 Review of Systems ROS Statement: Those systems with pertinent positive or pertinent negative responses have been documented in the HPI. ROS Other: All systems not noted in ROS Statement are negative. Past Medical History Past Medical History: Chest Pain / Angina, Diabetes Mellitus, GERD/Reflux, Hypertension, Osteoarthritis (OA), Sleep Apnea/CPAP/BIPAP Additional Past Medical History / Comment(s): obesity, BOVINE AORTIC ARCH, POSSIBLE MS-ONGOING TESTS, BILAT CTR, ENLARGED LYMPH NODES IN THROAT, HERNIAS, USES C-PAP, PREDIABETIC. pelvic floor dysfunction. History of Any Multi-Drug Resistant Organisms: MRSA Date of last positivie culture/infection: 2005 MDRO Source:: unknown Past Surgical History: Bariatric Surgery, Cholecystectomy, Hysterectomy Additional Past Surgical History / Comment(s): gastric sleeve, eye surgery , COLONOSCOPY/EGD, THROAT SX 07/2020, LYMPH NODE AND SALIVARY GLAND REMOVED Past Anesthesia/Blood Transfusion Reactions: No Reported Reaction Past Psychological History: ADD/ADHD, Anxiety, Depression Smoking Status: Never smoker Past Alcohol Use History: None Reported Past Drug Use History: None Reported - Past Family History Mother Family Medical History: Thyroid Disorder General Exam Limitations: no limitations General appearance: alert, in no apparent distress, obese Head exam: Present: atraumatic, normocephalic, normal inspection Eye exam: Present: normal appearance, PERRL, EOMI. Absent: scleral icterus, conjunctival injection, periorbital swelling ENT exam: Present: normal exam, mucous membranes moist Neck exam: Present: normal inspection Respiratory exam: Present: normal lung sounds bilaterally. Absent: respiratory distress, wheezes, rales, rhonchi, stridor Cardiovascular Exam: Present: regular rate, normal rhythm, normal heart sounds. Absent: systolic murmur, diastolic murmur, rubs, gallop, clicks GI/Abdominal exam: Present: soft, tenderness (Left upper and right lower quadrant), normal bowel sounds. Absent: distended, guarding, rebound, rigid Extremities exam: Present: normal inspection, full ROM, normal capillary refill. Absent: tenderness, pedal edema, joint swelling, calf tenderness Neurological exam: Present: alert, oriented X3 Psychiatric exam: Present: normal affect, normal mood Skin exam: Present: warm, dry, intact, normal color. Absent: rash Course Vital Signs 02/24/21 08:17 Temperature 98 F Pulse Rate 71 Respiratory 20 Rate Blood Pressure 137/88 O2 Sat by Pulse 98 Oximetry Medical Decision Making - Medical Decision Making 40-year-old female with multiple abdominal complaints presenting to the emergency room. Labs, 1 L normal saline, 1 mg of Dilaudid, CT of the abdomen and pelvis ordered. Labs unremarkable. Computed tomography scan shows no acute or new intra-abdominal issues. Patient verbalized her understanding of results and is agreeable with discharge home with follow-up to specialist. Case discussed with Dr. Bright, patient discharge home. - Lab Data Result diagrams: 02/24/21 08:41 02/24/21 08:41 Lab Results 02/24/21 02/24/21 02/24/21 Range/Units 08:41 08:41 08:41 WBC 6.1 (3.8-10.6) k/uL RBC 4.79 (3.80-5.40) m/uL Hgb 13.3 (11.4-16.0) gm/dL Hct 39.0 (34.0-46.0) % MCV 81.4 (80.0-100.0) fL MCH 27.7 (25.0-35.0) pg MCHC 34.0 (31.0-37.0) g/dL RDW 13.6 (11.5-15.5) % Plt Count 328 (150-450) k/uL MPV 7.9 Neutrophils % 53 % Lymphocytes % 38 % Monocytes % 5 % Eosinophils % 3 % Basophils % 1 % Neutrophils # 3.2 (1.3-7.7) k/uL Lymphocytes # 2.3 (1.0-4.8) k/uL Monocytes # 0.3 (0-1.0) k/uL Eosinophils # 0.2 (0-0.7) k/uL Basophils # 0.0 (0-0.2) k/uL Sodium (137-145) mmol/L Potassium (3.5-5.1) mmol/L Chloride (98-107) mmol/L Carbon Dioxide (22-30) mmol/L Anion Gap mmol/L BUN (7-17) mg/dL Creatinine (0.52-1.04) mg/dL Est GFR (CKD-EPI)AfAm (>60 ml/min/1.73 sqM) Est GFR (CKD-EPI)NonAf (>60 ml/min/1.73 sqM) Glucose (74-99) mg/dL Calcium (8.4-10.2) mg/dL Total Bilirubin (0.2-1.3) mg/dL AST (14-36) U/L ALT (4-34) U/L Alkaline Phosphatase (38-126) U/L Total Protein (6.3-8.2) g/dL Albumin (3.5-5.0) g/dL Amylase (30-110) U/L Lipase (23-300) U/L Urine Color Yellow Urine Appearance Clear (Clear) Urine pH 6.0 (5.0-8.0) Ur Specific [place] 1.009 (1.001-1.035) Urine Protein Negative (Negative) Urine Glucose (UA) Negative (Negative) Urine Ketones Negative (Negative) Urine Blood Negative (Negative) Urine Nitrite Negative (Negative) Urine Bilirubin Negative (Negative) Urine Urobilinogen <2.0 (<2.0) mg/dL Ur Leukocyte Esterase Negative (Negative) Urine HCG, Qual Not Detected (Not Detectd) 02/24/21 Range/Units 08:41 WBC (3.8-10.6) k/uL RBC (3.80-5.40) m/uL Hgb (11.4-16.0) gm/dL Hct (34.0-46.0) % MCV (80.0-100.0) fL MCH (25.0-35.0) pg MCHC (31.0-37.0) g/dL RDW (11.5-15.5) % Plt Count (150-450) k/uL MPV Neutrophils % % Lymphocytes % % Monocytes % % Eosinophils % % Basophils % % Neutrophils # (1.3-7.7) k/uL Lymphocytes # (1.0-4.8) k/uL Monocytes # (0-1.0) k/uL Eosinophils # (0-0.7) k/uL Basophils # (0-0.2) k/uL Sodium 138 (137-145) mmol/L Potassium 4.6 (3.5-5.1) mmol/L Chloride 104 (98-107) mmol/L Carbon Dioxide 25 (22-30) mmol/L Anion Gap 9 mmol/L BUN 9 (7-17) mg/dL Creatinine 0.94 (0.52-1.04) mg/dL Est GFR (CKD-EPI)AfAm 89 (>60 ml/min/1.73 sqM) Est GFR (CKD-EPI)NonAf 77 (>60 ml/min/1.73 sqM) Glucose 100 H (74-99) mg/dL Calcium 9.4 (8.4-10.2) mg/dL Total Bilirubin 0.4 (0.2-1.3) mg/dL AST 20 (14-36) U/L ALT 20 (4-34) U/L Alkaline Phosphatase 77 (38-126) U/L Total Protein 7.6 (6.3-8.2) g/dL Albumin 4.2 (3.5-5.0) g/dL Amylase 69 (30-110) U/L Lipase 105 (23-300) U/L Urine Color Urine Appearance (Clear) Urine pH (5.0-8.0) Ur Specific [place] (1.001-1.035) Urine Protein (Negative) Urine Glucose (UA) (Negative) Urine Ketones (Negative) Urine Blood (Negative) Urine Nitrite (Negative) Urine Bilirubin (Negative) Urine Urobilinogen (<2.0) mg/dL Ur Leukocyte Esterase (Negative) Urine HCG, Qual (Not Detectd) - Radiology Data Radiology results: report reviewed, image reviewed CT of the abdomen and pelvis: No bowel obstruction. No new or acute findings evident. Disposition Clinical Impression: Abdominal pain Disposition: HOME SELF-CARE Condition: Stable Instructions (If sedation given, give patient instructions): Abdominal Pain (ED) Additional Instructions: Please return to the Emergency Department if symptoms worsen or any other concerns. Increase dietary fiber and oral fluids. Follow-up primary care 1-2 days. Follow-up with GI specialist when feasible. Is patient prescribed a controlled substance at d/c from ED?: No Referrals: Billy Jade III, MD [Primary Care Provider] - 1-2 days Brooke Agrawal MD [STAFF PHYSICIAN] - 1-2 days Time of Disposition: 10:36
[2021-02-24 10:49] VITALS: BP 135/85; PULSE 79; RESP 18; TEMP 97.6
== END 2021-02-24 10:48 | disposition home or self-care (01) ==
LOC: EC 08:13
DX: R10.9 Unspecified abdominal pain (principal); E11.9 Type 2 diabetes mellitus without complications; I10 Essential (primary) hypertension; M19.90 Unspecified osteoarthritis, unspecified site; Z79.82 Long term (current) use of aspirin; K21.9 Gastro-esophageal reflux disease without esophagitis; Z79.899 Other long term (current) drug therapy
CPT/HCPCS: 36415; 80053; 82150; 83690; 85025; 81003; 81025; 74177; 99284; 96374; 96361; J1170; Q9967

== ENCOUNTER → 2021-03-10 | Outpatient (CLI) | payer OTHER ==
--- NOTE | 2021-03-10 14:17 | US ---
EXAMINATION TYPE: US thyroid st tissue head/neck DATE OF EXAM: 03/10/2021 COMPARISON: NONE CLINICAL HISTORY: 40-year-old female E04.1 Thyroid Nodule. RIGHT thyroid nodule. Hx of lymph node lef t neck TECHNIQUE: Multiple sonographic images of the thyroid gland are obtained. FINDINGS: GLAND SIZE: Right Lobe: 6.1 x 1.5 x 2.2 cm Overall Parenchyma: homogenous Left Lobe: 5.2 x 2.0 x 1.7 cm Overall Parenchyma: homogeneous Isthmus Thickness: 0.3 cm NODULES RIGHT: # of nodules measured on right: 1 1. 1.2 X 0.8 x 1.1 cm, lower , heterogeneous, hypoechoic nodule, which is wider than tall, with ill -defined margins, without echogenic foci. Prior size: no prior LEFT: # of nodules measured on left: 0 ISTHMUS: # of nodules measured in the isthmus: 0 Bilateral neck scanned, lymph node left neck is borderline in size at 2.2 x 0.9 cm. IMPRESSION: 1. Single 1.2 cm solid TIRADS 4 nodule right thyroid lobe. Continue to follow. Sample if it reaches 1 .5 cm. 2. Borderline sized 2.2 x 0.9 cm lymph node along the left side of the neck. This this probably react vern/post inflammatory and can also be reassessed at the follow-up exam.
== END | disposition home or self-care (01) ==
LOC: RADUSWWP 09:37
PROVIDERS: ATTEND Otolaryngology
DX: E04.1 Nontoxic single thyroid nodule (principal)
CPT/HCPCS: 76536

== ENCOUNTER 2021-05-25 16:47 | Emergency (ER) | payer OTHER ==
[2021-05-25 16:51] VITALS: RESP 18; TEMP 97.5
[2021-05-25 17:35] LABS: Basophils % (A) 1 %; Eosinophils # (A) 0.1 k/uL (0-0.7); Eosinophils % (A) 2 %; HCT 38.7 % (34.0-46.0); HGB 12.5 gm/dL (11.4-16.0); Lymphocytes % (A) 31 %; MCH 27.7 pg (25.0-35.0); MCHC 32.4 g/dL (31.0-37.0); MCV 85.5 fL (80.0-100.0); Mean Platelet Volume 7.5; Monocytes # (A) 0.3 k/uL (0-1.0); Monocytes % (A) 5 %; Neutrophils # (A) 3.9 k/uL (1.3-7.7); Neutrophils % (A) 60 %; Platelet Count 302 k/uL (150-450); RBC 4.53 m/uL (3.80-5.40); RDW 13.8 % (11.5-15.5); WBC 6.5 k/uL (3.8-10.6)
[2021-05-25 17:46] LABS: ALT 18 U/L (4-34); AST 19 U/L (14-36); African American GFR (CKD) >90 (>60 ml/min/1.73 sqM); Albumin 4.1 g/dL (3.5-5.0); Alkaline Phosphatase 82 U/L (38-126); Anion Gap 10 mmol/L; Blood Urea Nitrogen 8 mg/dL (7-17); Carbon Dioxide 22 mmol/L (22-30); Chloride 105 mmol/L (98-107); Glucose 108 mg/dL (74-99); Magnesium 1.9 mg/dL (1.6-2.3); Non-African American GFR(CKD) 86 (>60 ml/min/1.73 sqM); Sodium 137 mmol/L (137-145); Total Bilirubin 0.3 mg/dL (0.2-1.3); Total Protein 7.3 g/dL (6.3-8.2)
--- NOTE | 2021-05-25 17:50 | XR ---
EXAMINATION TYPE: XR chest 2V DATE OF EXAM: 05/25/2021 COMPARISON: 12/27/2020 HISTORY: Short of breath TECHNIQUE: 2 views FINDINGS: Heart is normal. Lungs are clear of consolidation. There are no hilar masses. Costophrenic angles are clear. IMPRESSION: Normal chest. No change.
--- NOTE | 2021-05-25 17:51 | XR ---
EXAMINATION TYPE: XR shoulder complete LT DATE OF EXAM: 05/25/2021 COMPARISON: NONE HISTORY: Shoulder pain TECHNIQUE: 3 views FINDINGS: I see no fracture nor dislocation. Glenohumeral joint is intact. There are no pathologic ca lcifications. IMPRESSION: Negative left shoulder exam. No fracture.
[2021-05-25 17:54] LABS: INR 0.9 (<1.2); Partial Thromboplastin Time 24.6 sec (22.0-30.0); Prothrombin Time 9.8 sec (9.0-12.0)
[2021-05-25] MEDS ORDERED: MORPHINE SULFATE 4 MG/ML SYRINGE IVP STA (18:03)
[2021-05-25] MEDS ORDERED: ASPIRIN 81 MG PO STA (18:03)
[2021-05-25] MEDS ORDERED: LIDOCAINE 5% PATCH TOPICAL STA (18:28)
--- NOTE | 2021-05-25 18:30 | ED ---
General Adult HPI - General Chief complaint: Shortness of Breath Stated complaint: Lt Shoulder Pain Time Seen by Provider: 05/25/21 16:59 Source: patient, RN notes reviewed, old records reviewed Mode of arrival: ambulatory - History of Present Illness Initial comments: Patient is a 40-year-old female with past medical history remarkable for chest pain, angina, diabetes, hypertension, congenital aortic abnormality, fibromyalgia, obesity presents immersed Department complaining of muscular skeletal left shoulder pain. States it was acute in onset this afternoon. Describes it as a sharp achy pain located over her left scapula that is reproducible on movement as well as palpation of her left scapula. Pain causes her to be short of breath occationally. Denies any other shortness of breath, chest pain, abdominal pain, nausea, vomiting. Denies any neck pain, numbness, weakness. Denies any left upper extremity weakness or numbness. His no other acute complaints at this time. Became concerned that it may be her heart, however she does follow up with a integrative medicine physician and has had clean heart cath a few years ago. No history of stents. Wanted to be evaluated. Denies any recent trauma or increased heavy lifting. - Related Data Home Medications Medication Instructions Recorded Confirmed Aspirin [Adult Low Dose Aspirin EC] 81 mg PO HS 07/30/20 05/25/21 Atomoxetine HCl [Strattera] 60 mg PO DAILY 07/30/20 05/25/21 Isosorbide Mononitrate [Imdur] 120 mg PO BID 07/30/20 05/25/21 Lansoprazole [Prevacid] 30 mg PO BID 07/30/20 05/25/21 buPROPion XL [Wellbutrin XL] 150 mg PO DAILY 07/30/20 05/25/21 guanFACINE [Tenex] 2 mg PO HS 07/30/20 05/25/21 Desvenlafaxine Succinate [Pristiq 25 mg PO DAILY 12/08/20 05/25/21 ER] Ergocalciferol [Vitamin D2 (1250 1,250 mcg PO TH 01/12/21 05/25/21 Mcg = 07462 Iu)] Albuterol Nebulized [Ventolin 2.5 mg INHALATION RT-QID PRN 05/25/21 05/25/21 Nebulized] Albuterol Sulfate [Proair Hfa] 2 puff INHALATION RT-QID PRN 05/25/21 05/25/21 Carvedilol [Coreg] 25 mg PO BID 05/25/21 05/25/21 Fluticasone Propionate [Flovent 2 puff INHALATION RT-BID 05/25/21 05/25/21 Hfa 44 mcg] hydrOXYzine pamoate [Vistaril] 100 mg PO HS 05/25/21 05/25/21 lamoTRIgine [LaMICtal] 25 mg PO BID 05/25/21 05/25/21 metFORMIN HCL 500 mg PO AC-BID 05/25/21 05/25/21 Previous Rx's Medication Instructions Recorded Lidocaine 5% Patch [Lidoderm 5% 1 patch TOPICAL DAILY PRN 7 Days 05/25/21 Patch] #7 patch Allergies Allergy/AdvReac Type Severity Reaction Status Date / Time budesonide [From Symbicort] Allergy worse Verified 05/25/21 18:19 allergy symptoms formoterol [From Symbicort] Allergy worse Verified 05/25/21 18:19 allergy symptoms magnesium sulfate Allergy Rash/Hives Verified 05/25/21 18:19 [From Epsom Salt] magnesium sulfate Allergy Rash/Hives Verified 05/25/21 18:19 [From Epsom Salt] methenamine [From Uribel] Allergy Rash/Hives Verified 05/25/21 18:19 methylene blue [From Uribel] Allergy Rash/Hives Verified 05/25/21 18:19 mold Allergy Dyspnea Verified 05/25/21 18:19 oxcarbazepine Allergy Rash/Hives Verified 05/25/21 18:19 [From Trileptal] salicylates [From Uribel] Allergy Rash/Hives Verified 05/25/21 18:19 sodium phosphate Allergy Rash/Hives Verified 05/25/21 18:19 [From Uribel] amitriptyline [From Elavil] AdvReac Edwards Verified 05/25/21 18:19 amoxicillin [From Augmentin] AdvReac Nausea & Verified 05/25/21 18:19 Vomiting clavulanic acid AdvReac Nausea & Verified 05/25/21 18:19 [From Augmentin] Vomiting dicyclomine [From Bentyl] AdvReac Rash/Hives Verified 05/25/21 18:19 levocetirizine [From Xyzal] AdvReac INSOMNIA Verified 05/25/21 18:19 montelukast [From Singulair] AdvReac "MAKES ME Verified 05/25/21 18:19 MENTALLY UNSTABLE" morphine AdvReac Abdominal Verified 05/25/21 18:19 Pain mushroom AdvReac Abdominal Verified 05/25/21 18:19 Pain NSAIDS (Non-Steroidal AdvReac Unknown Verified 05/25/21 18:19 Anti-Inflamma oats AdvReac Abdominal Verified 05/25/21 18:19 Pain Wrkbuut-ZQV-GoZ Reductase AdvReac joint Verified 05/25/21 18:19 Inhibitor inflammation [Skxipsr-Pug-Dsx Reductase Inhibitor] Sulfa (Sulfonamide AdvReac Abdominal Verified 05/25/21 18:19 Antibiotics) Pain topiramate [From Topamax] AdvReac Edwards Verified 05/25/21 18:19 tree nut [Nut] AdvReac Abdominal Verified 05/25/21 18:19 Pain dust Allergy Dyspnea Uncoded 05/25/21 18:19 urin D Allergy Rash/Hives Uncoded 05/25/21 18:19 Review of Systems ROS Statement: Those systems with pertinent positive or pertinent negative responses have been documented in the HPI. Review of Systems: CONST: Denies fever EYES: Denies blurry vision ENT: Denies nasal congestion C/V: Denies Chest pain RESP: Denies shortness of breath GI: Denies abdominal pain : Denies dysuria SKIN: Denies rash. MSK: Endorses posterior left shoulder pain. NEURO: Denies headache ROS Other: All systems not noted in ROS Statement are negative. Past Medical History Past Medical History: Chest Pain / Angina, Diabetes Mellitus, GERD/Reflux, Hypertension, Osteoarthritis (OA), Sleep Apnea/CPAP/BIPAP Additional Past Medical History / Comment(s): obesity, BOVINE AORTIC ARCH, POSSIBLE MS-ONGOING TESTS, BILAT CTR, ENLARGED LYMPH NODES IN THROAT, HERNIAS, USES C-PAP, PREDIABETIC. pelvic floor dysfunction. History of Any Multi-Drug Resistant Organisms: MRSA Date of last positivie culture/infection: 2005 MDRO Source:: unknown Past Surgical History: Bariatric Surgery, Cholecystectomy, Hysterectomy Additional Past Surgical History / Comment(s): gastric sleeve, eye surgery , COLONOSCOPY/EGD, THROAT SX 07/2020, LYMPH NODE AND SALIVARY GLAND REMOVED Past Anesthesia/Blood Transfusion Reactions: No Reported Reaction Past Psychological History: ADD/ADHD, Anxiety, Depression Smoking Status: Never smoker Past Alcohol Use History: None Reported Past Drug Use History: None Reported - Past Family History Mother Family Medical History: Thyroid Disorder General Exam - General Exam Comments Initial Comments: General: Appears in no acute distress. HEAD: Normal with no signs of head trauma. EYES: PERRLA, EOMI, conjunctiva normal, no discharge. ENT: Hearing grossly intact, normal oropharynx. RESPIRATORY: Clear breath sounds bilaterally. No wheezes, rales, or rhonchi. C/V: Regular rate and rhythm. S1 and S2 auscultated, no edema, peripheral pulses 2+ and intact throughout ABD: Abd is soft, nontender, nondistended EXT: Normal range of motion of all 4 extremity is. No obvious deformity. Tender to palpation over the posterior aspect the left shoulder along the lateral and inferior aspect of the scapula. Pain is reproducible on palpation as well as with passive and active movement of the left shoulder. No midline tenderness to palpation of the cervical, thoracic, lumbar spines. SKIN: No rashes or lesions observed on exposed skin. NEURO: Alert and oriented 4. No focal deficits. Course Vital Signs 05/25/21 05/25/21 16:47 18:34 Temperature 97.5 F L Pulse Rate 83 81 Respiratory 18 18 Rate Blood Pressure 164/86 123/80 O2 Sat by Pulse 97 97 Oximetry Medical Decision Making - Medical Decision Making Based on the patient's presentation and physical exam, she is concerned for possible cardiac etiology for her current symptoms. It does appear to be musculoskeletal in nature in her left shoulder, however she is anxious regarding her heart. She has no chest pain. Therefore we will obtain a cardiopulmonary workup on her. I did offer her morphine which she refused that she will be given a lidocaine patches was aspirin. She was in agreement this plan. Vital signs are within normal limits stable throughout his stay in the department. EKG showed no signs of acute ischemia. Chest x-ray and shoulder x-ray revealed no acute process or injury. Laboratory studies are remarkable for negative troponin, as well as a d-dimer within normal limits. Remainder the labs are unremarkable. On reevaluation, patient remains asymptomatic at this time. She states her pain is improved. She is resting comfortably. I did discuss that she is likely experiencing a shoulder strain or musculo skeletal pain as her symptoms, particularly with her exam, and negative workup. She was in agreement. I believe it is safe for her to be discharged home at this time. I will provide the patient with a prescription for lidocaine patch. I instructed the patient to follow up with their PCP in the next 3 days. I explained that the patient should return to the emergency department if they experience any worsening symptoms. Strict return precautions were discussed with the patient. The patient expressed understanding of these instructions. I answered all questions that the patient had. The patient was discharged home in good condition with their prescriptions and follow up information. - Lab Data Result diagrams: 05/25/21 17:17 05/25/21 17:17 Lab Results 05/25/21 05/25/21 05/25/21 Range/Units 17:17 17:17 17:17 WBC 6.5 (3.8-10.6) k/uL RBC 4.53 (3.80-5.40) m/uL Hgb 12.5 (11.4-16.0) gm/dL Hct 38.7 (34.0-46.0) % MCV 85.5 (80.0-100.0) fL MCH 27.7 (25.0-35.0) pg MCHC 32.4 (31.0-37.0) g/dL RDW 13.8 (11.5-15.5) % Plt Count 302 (150-450) k/uL MPV 7.5 Neutrophils % 60 % Lymphocytes % 31 % Monocytes % 5 % Eosinophils % 2 % Basophils % 1 % Neutrophils # 3.9 (1.3-7.7) k/uL Lymphocytes # 2.0 (1.0-4.8) k/uL Monocytes # 0.3 (0-1.0) k/uL Eosinophils # 0.1 (0-0.7) k/uL Basophils # 0.0 (0-0.2) k/uL PT 9.8 (9.0-12.0) sec INR 0.9 (<1.2) APTT 24.6 (22.0-30.0) sec D-Dimer 0.25 (<0.60) mg/L FEU Sodium 137 (137-145) mmol/L Potassium 4.0 (3.5-5.1) mmol/L Chloride 105 (98-107) mmol/L Carbon Dioxide 22 (22-30) mmol/L Anion Gap 10 mmol/L BUN 8 (7-17) mg/dL Creatinine 0.86 (0.52-1.04) mg/dL Est GFR (CKD-EPI)AfAm >90 (>60 ml/min/1.73 sqM) Est GFR (CKD-EPI)NonAf 86 (>60 ml/min/1.73 sqM) Glucose 108 H (74-99) mg/dL Calcium 9.0 (8.4-10.2) mg/dL Magnesium 1.9 (1.6-2.3) mg/dL Total Bilirubin 0.3 (0.2-1.3) mg/dL AST 19 (14-36) U/L ALT 18 (4-34) U/L Alkaline Phosphatase 82 (38-126) U/L Troponin I (0.000-0.034) ng/mL Total Protein 7.3 (6.3-8.2) g/dL Albumin 4.1 (3.5-5.0) g/dL 05/25/21 Range/Units 17:17 WBC (3.8-10.6) k/uL RBC (3.80-5.40) m/uL Hgb (11.4-16.0) gm/dL Hct (34.0-46.0) % MCV (80.0-100.0) fL MCH (25.0-35.0) pg MCHC (31.0-37.0) g/dL RDW (11.5-15.5) % Plt Count (150-450) k/uL MPV Neutrophils % % Lymphocytes % % Monocytes % % Eosinophils % % Basophils % % Neutrophils # (1.3-7.7) k/uL Lymphocytes # (1.0-4.8) k/uL Monocytes # (0-1.0) k/uL Eosinophils # (0-0.7) k/uL Basophils # (0-0.2) k/uL PT (9.0-12.0) sec INR (<1.2) APTT (22.0-30.0) sec D-Dimer (<0.60) mg/L FEU Sodium (137-145) mmol/L Potassium (3.5-5.1) mmol/L Chloride (98-107) mmol/L Carbon Dioxide (22-30) mmol/L Anion Gap mmol/L BUN (7-17) mg/dL Creatinine (0.52-1.04) mg/dL Est GFR (CKD-EPI)AfAm (>60 ml/min/1.73 sqM) Est GFR (CKD-EPI)NonAf (>60 ml/min/1.73 sqM) Glucose (74-99) mg/dL Calcium (8.4-10.2) mg/dL Magnesium (1.6-2.3) mg/dL Total Bilirubin (0.2-1.3) mg/dL AST (14-36) U/L ALT (4-34) U/L Alkaline Phosphatase (38-126) U/L Troponin I <0.012 (0.000-0.034) ng/mL Total Protein (6.3-8.2) g/dL Albumin (3.5-5.0) g/dL - EKG Data -: EKG Interpreted by Me EKG Comments: 12-lead Electrocardiogram Interpretation Note EKG was reviewed and interpreted by myself. 12-lead ECG performed at 1656 is in terpreted by me as revealing normal sinus rhythm at a rate of 84 beats per minute. Rosalia is normal. OK interval is 166 ms, QRS duration is 96 ms, QTc is 428 ms.. There were no ST or T wave abnormalities to suggest myocardial ischemia or injury. R wave progression across the precordium was satisfactory. By my interpretation this EKG is non-diagnostic for acute ischemia. Disposition Clinical Impression: Left shoulder strain Disposition: HOME SELF-CARE Condition: Good Instructions (If sedation given, give patient instructions): Muscle Strain (ED) Prescriptions: Lidocaine 5% Patch [Lidoderm 5% Patch] 1 patch TOPICAL DAILY PRN 7 Days #7 patch PRN Reason: Pain Is patient prescribed a controlled substance at d/c from ED?: No Referrals: iBlly Jade III, MD [Primary Care Provider] - 1-2 days
[2021-05-25 18:35] VITALS: BP 123/80; PULSE 81
== END 2021-05-25 18:42 | disposition home or self-care (01) ==
LOC: EC 16:47
DX: S46.912A Strain of unspecified muscle, fascia and tendon at shoulder and upper arm level, left arm, initial encounter (principal); E11.9 Type 2 diabetes mellitus without complications; I10 Essential (primary) hypertension; K21.9 Gastro-esophageal reflux disease without esophagitis; M19.90 Unspecified osteoarthritis, unspecified site; F32.A Depression, unspecified; F41.9 Anxiety disorder, unspecified; F90.9 Attention-deficit hyperactivity disorder, unspecified type; Z79.84 Long term (current) use of oral hypoglycemic drugs; Z79.51 Long term (current) use of inhaled steroids; Z79.82 Long term (current) use of aspirin; Z79.899 Other long term (current) drug therapy; X58.XXXA Exposure to other specified factors, initial encounter
CPT/HCPCS: 36415; 71046; 80053; 83735; 84484; 85025; 85379; 85610; 85730; 93005; 99284

== ENCOUNTER → 2021-06-08 | Outpatient (CLI) | payer OTHER ==
--- NOTE | 2021-06-08 08:49 | US ---
EXAMINATION TYPE: US venous doppler duplex LE RT DATE OF EXAM: 06/08/2021 8:34 AM COMPARISON: NONE CLINICAL HISTORY: R25.2 CRAMP AND SPASM. SIDE PERFORMED: Right TECHNIQUE: The lower extremity deep venous system is examined utilizing real time linear array sonog nam with graded compression, doppler sonography and color-flow sonography. VESSELS IMAGED: Common Femoral Vein Deep Femoral Vein Greater Saphenous Vein * Femoral Vein Popliteal Vein Small Saphenous Vein * Proximal Calf Veins (* superficial vessels) Right Leg: Negative for DVT IMPRESSION: No evidence for DVT at this time.
== END | disposition home or self-care (01) ==
LOC: RADUSWWP 08:08
PROVIDERS: ATTEND Family Medicine
DX: R25.2 Cramp and spasm (principal)

== ENCOUNTER 2021-07-10 08:12 | Emergency (ER) | payer OTHER ==
[2021-07-10 08:15] VITALS: RESP 18; TEMP 97.8
[2021-07-10] MEDS ORDERED: SODIUM CHLORIDE 0.9% 1,000 ML IV STA (08:35)
[2021-07-10] MEDS ORDERED: ONDANSETRON 4 MG/2 ML VIAL IVP STA (08:35)
[2021-07-10] MEDS ORDERED: KETOROLAC 15 MG/ML 1 ML VIAL IVP STA (08:35)
[2021-07-10] MEDS ORDERED: ORPHENADRINE 30 MG/ML 2 ML VIAL IVP STA (08:35)
[2021-07-10] MEDS ORDERED: HYDROmorphone 0.5 MG/0.5 ML SYRINGE IVP STA (08:35)
[2021-07-10 09:10] LABS: Basophils % (A) 0 %; Eosinophils # (A) 0.1 k/uL (0-0.7); Eosinophils % (A) 2 %; HCT 38.2 % (34.0-46.0); HGB 12.6 gm/dL (11.4-16.0); Lymphocytes # (A) 1.5 k/uL (1.0-4.8); Lymphocytes % (A) 28 %; MCH 27.9 pg (25.0-35.0); MCV 84.6 fL (80.0-100.0); Mean Platelet Volume 7.5; Monocytes # (A) 0.2 k/uL (0-1.0); Monocytes % (A) 3 %; Neutrophils # (A) 3.4 k/uL (1.3-7.7); Neutrophils % (A) 64 %; Platelet Count 300 k/uL (150-450); RBC 4.52 m/uL (3.80-5.40); RDW 14.3 % (11.5-15.5); WBC 5.3 k/uL (3.8-10.6)
[2021-07-10 09:14] LABS: ALT 23 U/L (4-34); AST 21 U/L (14-36); African American GFR (CKD) >90 (>60 ml/min/1.73 sqM); Albumin 3.9 g/dL (3.5-5.0); Alkaline Phosphatase 74 U/L (38-126); Amylase 53 U/L (30-110); Anion Gap 8 mmol/L; Blood Urea Nitrogen 10 mg/dL (7-17); Carbon Dioxide 25 mmol/L (22-30); Chloride 105 mmol/L (98-107); Glucose 131 mg/dL (74-99); Lipase 86 U/L (23-300); Non-African American GFR(CKD) 81 (>60 ml/min/1.73 sqM); Potassium 3.9 mmol/L (3.5-5.1); Sodium 138 mmol/L (137-145); Total Bilirubin 0.5 mg/dL (0.2-1.3); Total Protein 7.2 g/dL (6.3-8.2)
--- NOTE | 2021-07-10 09:44 | XR ---
EXAMINATION TYPE: XR KUB DATE OF EXAM: 07/10/2021 COMPARISON: NONE HISTORY: Pain TECHNIQUE: Single supine KUB image of the abdomen is obtained FINDINGS: Small bowel demonstrates no evidence for dilatation or air fluid levels. Gas and fecal material is seen in non-distended colon. No convincing evidence for pneumoperitoneum. No unusual calcifications. The lung bases are clear. The osseous structures are intact. IMPRESSION: 1. Overall nonobstructive bowel gas pattern.
--- NOTE | 2021-07-10 09:46 | XR ---
EXAMINATION TYPE: XR ribs RT w pa chest xray DATE OF EXAM: 07/10/2021 COMPARISON: NONE HISTORY: Pain TECHNIQUE: Single view of the chest 4 views of the ribs are submitted. FINDINGS: The lungs are clear. No Evidence for pneumothorax. No evidence for focal contusion. Medi astinal structures are midline. Evaluation of the ribs fails to demonstrate evidence for displaced r ib fracture or secondary sign of rib fracture. IMPRESSION: Negative study
--- NOTE | 2021-07-10 09:47 | ED ---
Abdominal Pain HPI - General Chief Complaint: Abdominal Pain Stated Complaint: Poss Hernia Time Seen by Provider: 07/10/21 08:16 Source: patient, RN notes reviewed Mode of arrival: ambulatory Limitations: no limitations - History of Present Illness Initial Comments: This a 41-year-old female presents emergency Department chief complaint of right-sided rib pain. Patient states that the pain started after having bumped states she was straining felt a pop. Patient states she's had multiple abdominal surgeries include cholecystectomy, hysterectomy, section, gastric surgery. Patient states that she hurts when she takes deep breath, twists bends. Patient denies any dysuria hematuria no vomiting no diarrhea no constipation noted. - Related Data Home Medications Medication Instructions Recorded Confirmed Aspirin [Adult Low Dose Aspirin EC] 81 mg PO HS 07/30/20 05/25/21 Atomoxetine HCl [Strattera] 60 mg PO DAILY 07/30/20 05/25/21 Isosorbide Mononitrate [Imdur] 120 mg PO BID 07/30/20 05/25/21 Lansoprazole [Prevacid] 30 mg PO BID 07/30/20 05/25/21 buPROPion XL [Wellbutrin XL] 150 mg PO DAILY 07/30/20 05/25/21 guanFACINE [Tenex] 2 mg PO HS 07/30/20 05/25/21 Desvenlafaxine Succinate [Pristiq 25 mg PO DAILY 12/08/20 05/25/21 ER] Ergocalciferol [Vitamin D2 (1250 1,250 mcg PO TH 01/12/21 05/25/21 Mcg = 21885 Iu)] Albuterol Nebulized [Ventolin 2.5 mg INHALATION RT-QID PRN 05/25/21 05/25/21 Nebulized] Albuterol Sulfate [Proair Hfa] 2 puff INHALATION RT-QID PRN 05/25/21 05/25/21 Carvedilol [Coreg] 25 mg PO BID 05/25/21 05/25/21 Fluticasone Propionate [Flovent 2 puff INHALATION RT-BID 05/25/21 05/25/21 Hfa 44 mcg] hydrOXYzine pamoate [Vistaril] 100 mg PO HS 05/25/21 05/25/21 lamoTRIgine [LaMICtal] 25 mg PO BID 05/25/21 05/25/21 metFORMIN HCL 500 mg PO AC-BID 05/25/21 05/25/21 Previous Rx's Medication Instructions Recorded Lidocaine 5% Patch [Lidoderm 5% 1 patch TOPICAL DAILY PRN 7 Days 05/25/21 Patch] #7 patch Allergies Allergy/AdvReac Type Severity Reaction Status Date / Time budesonide [From Symbicort] Allergy worse Verified 07/10/21 08:15 allergy symptoms formoterol [From Symbicort] Allergy worse Verified 07/10/21 08:15 allergy symptoms magnesium sulfate Allergy Rash/Hives Verified 07/10/21 08:15 [From Epsom Salt] magnesium sulfate Allergy Rash/Hives Verified 07/10/21 08:15 [From Epsom Salt] methenamine [From Uribel] Allergy Rash/Hives Verified 07/10/21 08:15 methylene blue [From Uribel] Allergy Rash/Hives Verified 07/10/21 08:15 mold Allergy Dyspnea Verified 07/10/21 08:15 oxcarbazepine Allergy Rash/Hives Verified 07/10/21 08:15 [From Trileptal] salicylates [From Uribel] Allergy Rash/Hives Verified 07/10/21 08:15 sodium phosphate Allergy Rash/Hives Verified 07/10/21 08:15 [From Uribel] amitriptyline [From Elavil] AdvReac Edwards Verified 07/10/21 08:15 amoxicillin [From Augmentin] AdvReac Nausea & Verified 07/10/21 08:15 Vomiting clavulanic acid AdvReac Nausea & Verified 07/10/21 08:15 [From Augmentin] Vomiting dicyclomine [From Bentyl] AdvReac Rash/Hives Verified 07/10/21 08:15 levocetirizine [From Xyzal] AdvReac INSOMNIA Verified 07/10/21 08:15 montelukast [From Singulair] AdvReac "MAKES ME Verified 07/10/21 08:15 MENTALLY UNSTABLE" morphine AdvReac Abdominal Verified 07/10/21 08:15 Pain mushroom AdvReac Abdominal Verified 07/10/21 08:15 Pain NSAIDS (Non-Steroidal AdvReac Unknown Verified 07/10/21 08:15 Anti-Inflamma oats AdvReac Abdominal Verified 07/10/21 08:15 Pain Clldhsj-AGV-GhI Reductase AdvReac joint Verified 07/10/21 08:15 Inhibitor inflammation [Xvgvpef-Fnv-Rpp Reductase Inhibitor] Sulfa (Sulfonamide AdvReac Abdominal Verified 07/10/21 08:15 Antibiotics) Pain topiramate [From Topamax] AdvReac Edwards Verified 07/10/21 08:15 tree nut [Nut] AdvReac Abdominal Verified 07/10/21 08:15 Pain dust Allergy Dyspnea Uncoded 07/10/21 08:15 urin D Allergy Rash/Hives Uncoded 05/25/21 18:19 Review of Systems ROS Statement: Those systems with pertinent positive or pertinent negative responses have been documented in the HPI. ROS Other: All systems not noted in ROS Statement are negative. Past Medical History Past Medical History: Chest Pain / Angina, Diabetes Mellitus, GERD/Reflux, Hypertension, Osteoarthritis (OA), Sleep Apnea/CPAP/BIPAP Additional Past Medical History / Comment(s): obesity, BOVINE AORTIC ARCH, POSSIBLE MS-ONGOING TESTS, BILAT CTR, ENLARGED LYMPH NODES IN THROAT, HERNIAS, USES C-PAP, PREDIABETIC. pelvic floor dysfunction. History of Any Multi-Drug Resistant Organisms: MRSA Date of last positivie culture/infection: 2005 MDRO Source:: unknown Past Surgical History: Bariatric Surgery, Cholecystectomy, Hysterectomy Additional Past Surgical History / Comment(s): gastric sleeve, eye surgery , COLONOSCOPY/EGD, THROAT SX 07/2020, LYMPH NODE AND SALIVARY GLAND REMOVED Past Anesthesia/Blood Transfusion Reactions: No Reported Reaction Past Psychological History: ADD/ADHD, Anxiety, Depression Smoking Status: Never smoker Past Alcohol Use History: None Reported Past Drug Use History: None Reported - Past Family History Mother Family Medical History: Thyroid Disorder General Exam Limitations: no limitations General appearance: alert, in no apparent distress Head exam: Present: atraumatic, normocephalic, normal inspection Eye exam: Present: normal appearance, PERRL, EOMI. Absent: scleral icterus, conjunctival injection, periorbital swelling ENT exam: Present: normal exam, normal oropharynx, mucous membranes moist Neck exam: Present: normal inspection, full ROM. Absent: tenderness, meningismus, lymphadenopathy Respiratory exam: Present: normal lung sounds bilaterally, chest wall tenderness (Right-sided abdominal tenderness). Absent: respiratory distress, wheezes, rales, rhonchi, stridor Cardiovascular Exam: Present: regular rate, normal rhythm, normal heart sounds. Absent: systolic murmur, diastolic murmur, rubs, gallop, clicks GI/Abdominal exam: Present: soft, normal bowel sounds. Absent: distended, tenderness, guarding, rebound, rigid Back exam: Absent: CVA tenderness (R), CVA tenderness (L) Neurological exam: Present: alert, oriented X3 Skin exam: Present: warm, dry, intact, normal color. Absent: rash Course Vital Signs 07/10/21 08:12 Temperature 97.8 F Pulse Rate 94 Respiratory 18 Rate Blood Pressure 165/97 O2 Sat by Pulse 97 Oximetry Medical Decision Making - Medical Decision Making 41-year-old presents emergency from for right-sided rib pain. I do believe this is related to intercostal injury. Labs urine x-ray unremarkable. Patient we discharged him stable condition. - Lab Data Result diagrams: 07/10/21 08:38 07/10/21 08:38 Lab Results 07/10/21 07/10/21 07/10/21 Range/Units 08:38 08:38 08:38 WBC 5.3 (3.8-10.6) k/uL RBC 4.52 (3.80-5.40) m/uL Hgb 12.6 (11.4-16.0) gm/dL Hct 38.2 (34.0-46.0) % MCV 84.6 (80.0-100.0) fL MCH 27.9 (25.0-35.0) pg MCHC 33.0 (31.0-37.0) g/dL RDW 14.3 (11.5-15.5) % Plt Count 300 (150-450) k/uL MPV 7.5 Neutrophils % 64 % Lymphocytes % 28 % Monocytes % 3 % Eosinophils % 2 % Basophils % 0 % Neutrophils # 3.4 (1.3-7.7) k/uL Lymphocytes # 1.5 (1.0-4.8) k/uL Monocytes # 0.2 (0-1.0) k/uL Eosinophils # 0.1 (0-0.7) k/uL Basophils # 0.0 (0-0.2) k/uL Sodium 138 (137-145) mmol/L Potassium 3.9 (3.5-5.1) mmol/L Chloride 105 (98-107) mmol/L Carbon Dioxide 25 (22-30) mmol/L Anion Gap 8 mmol/L BUN 10 (7-17) mg/dL Creatinine 0.89 (0.52-1.04) mg/dL Est GFR (CKD-EPI)AfAm >90 (>60 ml/min/1.73 sqM) Est GFR (CKD-EPI)NonAf 81 (>60 ml/min/1.73 sqM) Glucose 131 H (74-99) mg/dL Plasma Lactic Acid Amador (0.7-2.0) mmol/L Calcium 9.0 (8.4-10.2) mg/dL Total Bilirubin 0.5 (0.2-1.3) mg/dL AST 21 (14-36) U/L ALT 23 (4-34) U/L Alkaline Phosphatase 74 (38-126) U/L Total Protein 7.2 (6.3-8.2) g/dL Albumin 3.9 (3.5-5.0) g/dL Amylase 53 (30-110) U/L Lipase 86 (23-300) U/L Urine Color Yellow Urine Appearance Clear (Clear) Urine pH 5.0 (5.0-8.0) Ur Specific [place] 1.016 (1.001-1.035) Urine Protein Negative (Negative) Urine Glucose (UA) Negative (Negative) Urine Ketones Negative (Negative) Urine Blood Negative (Negative) Urine Nitrite Negative (Negative) Urine Bilirubin Negative (Negative) Urine Urobilinogen <2.0 (<2.0) mg/dL Ur Leukocyte Esterase Negative (Negative) 07/10/21 Range/Units 08:38 WBC (3.8-10.6) k/uL RBC (3.80-5.40) m/uL Hgb (11.4-16.0) gm/dL Hct (34.0-46.0) % MCV (80.0-100.0) fL MCH (25.0-35.0) pg MCHC (31.0-37.0) g/dL RDW (11.5-15.5) % Plt Count (150-450) k/uL MPV Neutrophils % % Lymphocytes % % Monocytes % % Eosinophils % % Basophils % % Neutrophils # (1.3-7.7) k/uL Lymphocytes # (1.0-4.8) k/uL Monocytes # (0-1.0) k/uL Eosinophils # (0-0.7) k/uL Basophils # (0-0.2) k/uL Sodium (137-145) mmol/L Potassium (3.5-5.1) mmol/L Chloride (98-107) mmol/L Carbon Dioxide (22-30) mmol/L Anion Gap mmol/L BUN (7-17) mg/dL Creatinine (0.52-1.04) mg/dL Est GFR (CKD-EPI)AfAm (>60 ml/min/1.73 sqM) Est GFR (CKD-EPI)NonAf (>60 ml/min/1.73 sqM) Glucose (74-99) mg/dL Plasma Lactic Acid Amador 1.2 (0.7-2.0) mmol/L Calcium (8.4-10.2) mg/dL Total Bilirubin (0.2-1.3) mg/dL AST (14-36) U/L ALT (4-34) U/L Alkaline Phosphatase (38-126) U/L Total Protein (6.3-8.2) g/dL Albumin (3.5-5.0) g/dL Amylase (30-110) U/L Lipase (23-300) U/L Urine Color Urine Appearance (Clear) Urine pH (5.0-8.0) Ur Specific [place] (1.001-1.035) Urine Protein (Negative) Urine Glucose (UA) (Negative) Urine Ketones (Negative) Urine Blood (Negative) Urine Nitrite (Negative) Urine Bilirubin (Negative) Urine Urobilinogen (<2.0) mg/dL Ur Leukocyte Esterase (Negative) Disposition Clinical Impression: Injury of costal cartilage, Chest wall pain Disposition: HOME SELF-CARE Condition: Stable Instructions (If sedation given, give patient instructions): Chest Wall Pain ( ED) Additional Instructions: Please return to the Emergency Department if symptoms worsen or any other concerns. Is patient prescribed a controlled substance at d/c from ED?: No Referrals: Billy Jade III, MD [Primary Care Provider] - 1-2 days Time of Disposition: 09:58
[2021-07-10 09:50] LABS: Appearance,Urine Clear (Clear); Bilirubin,Urine Negative (Negative); Blood,Urine Negative (Negative); Color,Urine Yellow; Glucose,Urine (UA) Negative (Negative); Ketones,Urine Negative (Negative); Leukocyte Esterase,Urine Negative (Negative); Nitrite,Urine Negative (Negative); Protein,Urine Negative (Negative); Specific Gravity,Urine 1.016 (1.001-1.035); Urobilinogen,Urine <2.0 mg/dL (<2.0)
[2021-07-10 10:04] VITALS: BP 114/72; PULSE 69
== END 2021-07-10 10:04 | disposition home or self-care (01) ==
LOC: EC 08:12
DX: S29.8XXA Other specified injuries of thorax, initial encounter (principal); E11.9 Type 2 diabetes mellitus without complications; K21.9 Gastro-esophageal reflux disease without esophagitis; I10 Essential (primary) hypertension; M19.90 Unspecified osteoarthritis, unspecified site; F90.9 Attention-deficit hyperactivity disorder, unspecified type; F41.9 Anxiety disorder, unspecified; F32.A Depression, unspecified; Z79.82 Long term (current) use of aspirin; Z79.84 Long term (current) use of oral hypoglycemic drugs; Z88.0 Allergy status to penicillin; Z88.5 Allergy status to narcotic agent; Z88.2 Allergy status to sulfonamides; Z88.1 Allergy status to other antibiotic agents; Z98.84 Bariatric surgery status; Z90.49 Acquired absence of other specified parts of digestive tract; Z90.710 Acquired absence of both cervix and uterus; X50.0XXA Overexertion from strenuous movement or load, initial encounter
CPT/HCPCS: 99283; 96374; 96375 ×3; 96361; 36415; 80053; 82150; 83605; 83690; 85025; 81003; 71101; 74018; J2360; J2405; J1885; J1170

== ENCOUNTER → 2021-09-05 | Outpatient (CLI) | payer OTHER ==
--- NOTE | 2021-09-05 09:37 | US ---
EXAMINATION TYPE: US thyroid st tissue head/neck DATE OF EXAM: 09/05/2021 COMPARISON: US dated 03/10/2021 CLINICAL HISTORY: E04.1 Thyroid Nodule. GLAND SIZE: Right Lobe: 5.8 x 1.6 x 2.1 cm Overall Parenchyma: homogenous Left Lobe: 5.7 x 1.5 x 1.7 cm Overall Parenchyma: homogeneous Isthmus Thickness: 0.2 cm NODULES RIGHT: # of nodules measured on right: 1 1. 1.3 X 0.8 x 1.3 cm, lower medial, mixed cystic and solid, hypoechoic nodule, which is wider than tall, with smooth margins, without echogenic foci. Prior size: 1.2 x 0.8 x 1.1 cm LEFT: # of nodules measured on left: 0 ISTHMUS: # of nodules measured in the isthmus: 0 Bilateral neck scanned, multiple bilateral nodes, largest measures 2.1 x 0.4 cm on the right . IMPRESSION: Stable thyroid glandular enlargement and nonspecific nodule right thyroid lobe. Lymph nodes as noted above. 2017 ACR TI-RADS LEVEL: *Highest TI-RADS level nodule reported
== END | disposition home or self-care (01) ==
LOC: RADUSWWP 08:18
PROVIDERS: ATTEND Otolaryngology
DX: E04.1 Nontoxic single thyroid nodule (principal)
CPT/HCPCS: 76536

== ENCOUNTER 2021-09-28 09:50 | Emergency (ER) | payer OTHER ==
--- NOTE | 2021-09-28 10:38 | ED ---
General Adult HPI - General Chief complaint: Recheck/Abnormal Lab/Rx Stated complaint: Lymph nodes in neck swollen Time Seen by Provider: 09/28/21 10:22 Source: patient Mode of arrival: ambulatory Limitations: no limitations - History of Present Illness Initial comments: Patient is a 41-year-old female presents the emergency room with complaints of swollen lymph nodes and tenderness earlier today however at this time she does not have any lymph node swelling or tenderness. She also reports several clustered symptoms including occasional urinary frequency, occasional uticaria, occasional puffy eyes especially at nighttime, intermittent shortness of breath unaffected by an albuterol inhaler, intermittent lateral right ankle swelling worse at the end of the day and pain in her feet which causes her to be unable to wear socks. She reports that the symptoms have been ongoing for 6 months to 2 years and have been sporadic; none of these symptoms are happening at this time. She reports that she is established with ENT and dermatology and states she plans on establishing with pulmonary soon. She also follows with psychiatry for anxiety, depression, and ADD. Of note when symptoms began she was taken off hydroxyzine 100 mg daily at bedtime which she was on insomnia. She did not go on any other antihistamine regimen after coming off her hydroxyzine. She has a past medical history significant for DM, sleep apnea, GERD, HTN and OA. - Related Data Home Medications Medication Instructions Recorded Confirmed Aspirin [Adult Low Dose Aspirin EC] 81 mg PO HS 07/30/20 05/25/21 Atomoxetine HCl [Strattera] 60 mg PO DAILY 07/30/20 05/25/21 Isosorbide Mononitrate [Imdur] 120 mg PO BID 07/30/20 05/25/21 Lansoprazole [Prevacid] 30 mg PO BID 07/30/20 05/25/21 buPROPion XL [Wellbutrin XL] 150 mg PO DAILY 07/30/20 05/25/21 guanFACINE [Tenex] 2 mg PO HS 07/30/20 05/25/21 Desvenlafaxine Succinate [Pristiq 25 mg PO DAILY 12/08/20 05/25/21 ER] Ergocalciferol [Vitamin D2 (1250 1,250 mcg PO TH 01/12/21 05/25/21 Mcg = 98771 Iu)] Albuterol Nebulized [Ventolin 2.5 mg INHALATION RT-QID PRN 05/25/21 05/25/21 Nebulized] Albuterol Sulfate [Proair Hfa] 2 puff INHALATION RT-QID PRN 05/25/21 05/25/21 Fluticasone Propionate [Flovent 2 puff INHALATION RT-BID 05/25/21 05/25/21 Hfa 44 mcg] carvediloL [Coreg] 25 mg PO BID 05/25/21 05/25/21 hydrOXYzine pamoate [Vistaril] 100 mg PO HS 05/25/21 05/25/21 lamoTRIgine [LaMICtal] 25 mg PO BID 05/25/21 05/25/21 metFORMIN HCL 500 mg PO AC-BID 05/25/21 05/25/21 Previous Rx's Medication Instructions Recorded Lidocaine 5% Patch [Lidoderm 5% 1 patch TOPICAL DAILY PRN 7 Days 05/25/21 Patch] #7 patch Fexofenadine HCl [Ileana Allergy] 180 mg PO HS 30 Days #30 tab 09/28/21 Allergies Allergy/AdvReac Type Severity Reaction Status Date / Time budesonide [From Symbicort] Allergy worse Verified 09/28/21 10:13 allergy symptoms formoterol [From Symbicort] Allergy worse Verified 09/28/21 10:13 allergy symptoms magnesium sulfate Allergy Rash/Hives Verified 09/28/21 10:13 [From Epsom Salt] methenamine [From Uribel] Allergy Rash/Hives Verified 09/28/21 10:13 methylene blue [From Uribel] Allergy Rash/Hives Verified 09/28/21 10:13 mold Allergy Dyspnea Verified 09/28/21 10:13 oxcarbazepine Allergy Rash/Hives Verified 09/28/21 10:13 [From Trileptal] salicylates [From Uribel] Allergy Rash/Hives Verified 09/28/21 10:13 sodium phosphate Allergy Rash/Hives Verified 09/28/21 10:13 [From Uribel] amitriptyline [From Elavil] AdvReac Edwards Verified 09/28/21 10:13 amoxicillin [From Augmentin] AdvReac Nausea & Verified 09/28/21 10:13 Vomiting clavulanic acid AdvReac Nausea & Verified 09/28/21 10:13 [From Augmentin] Vomiting dicyclomine [From Bentyl] AdvReac Rash/Hives Verified 09/28/21 10:13 levocetirizine [From Xyzal] AdvReac INSOMNIA Verified 09/28/21 10:13 montelukast [From Singulair] AdvReac "MAKES ME Verified 09/28/21 10:13 MENTALLY UNSTABLE" morphine AdvReac Abdominal Verified 09/28/21 10:13 Pain mushroom AdvReac Abdominal Verified 09/28/21 10:13 Pain NSAIDS (Non-Steroidal AdvReac Unknown Verified 09/28/21 10:13 Anti-Inflamma oats AdvReac Abdominal Verified 09/28/21 10:13 Pain Ietzotb-OOT-GhK Reductase AdvReac joint Verified 09/28/21 10:13 Inhibitor inflammation [Fqiszpe-Fhq-Bnf Reductase Inhibitor] Sulfa (Sulfonamide AdvReac Abdominal Verified 09/28/21 10:13 Antibiotics) Pain topiramate [From Topamax] AdvReac Edwards Verified 09/28/21 10:13 tree nut [Nut] AdvReac Abdominal Verified 09/28/21 10:13 Pain dust Allergy Dyspnea Uncoded 09/28/21 10:13 urin D Allergy Rash/Hives Uncoded 09/28/21 10:13 Review of Systems ROS Statement: Those systems with pertinent positive or pertinent negative responses have been documented in the HPI. ROS Other: All systems not noted in ROS Statement are negative. Past Medical History Past Medical History: Chest Pain / Angina, Diabetes Mellitus, GERD/Reflux, Hypertension, Osteoarthritis (OA), Sleep Apnea/CPAP/BIPAP Additional Past Medical History / Comment(s): obesity, BOVINE AORTIC ARCH, POSSIBLE MS-ONGOING TESTS, BILAT CTR, ENLARGED LYMPH NODES IN THROAT, HERNIAS, USES C-PAP, PREDIABETIC. pelvic floor dysfunction. History of Any Multi-Drug Resistant Organisms: MRSA Date of last positivie culture/infection: 2005 MDRO Source:: unknown Past Surgical History: Bariatric Surgery, Cholecystectomy, Hysterectomy Additional Past Surgical History / Comment(s): gastric sleeve, eye surgery , COLONOSCOPY/EGD, THROAT SX 07/2020, LYMPH NODE AND SALIVARY GLAND REMOVED Past Anesthesia/Blood Transfusion Reactions: No Reported Reaction Past Psychological History: ADD/ADHD, Anxiety, Depression Smoking Status: Never smoker Past Alcohol Use History: None Reported Past Drug Use History: None Reported - Past Family History Mother Family Medical History: Thyroid Disorder General Exam Limitations: no limitations General appearance: alert, in no apparent distress, anxious, obese Head exam: Present: atraumatic, normocephalic, normal inspection Eye exam: Present: normal appearance, PERRL, EOMI. Absent: scleral icterus, conjunctival injection, periorbital swelling ENT exam: Present: normal exam, mucous membranes moist Neck exam: Present: normal inspection. Absent: tenderness, meningismus, lymphadenopathy Respiratory exam: Present: normal lung sounds bilaterally. Absent: respiratory distress, wheezes, rales, rhonchi, stridor Cardiovascular Exam: Present: regular rate, normal rhythm, normal heart sounds. Absent: systolic murmur, diastolic murmur, rubs, gallop, clicks GI/Abdominal exam: Present: soft, normal bowel sounds. Absent: distended, tenderness, guarding, rebound, rigid Extremities exam: Present: normal inspection, full ROM. Absent: pedal edema, joint swelling Back exam: Present: normal inspection Neurological exam: Present: alert, oriented X3, CN II-XII intact Psychiatric exam: Present: anxious Skin exam: Present: warm, dry, intact, normal color. Absent: rash Course Vital Signs 09/28/21 09/28/21 10:10 12:00 Temperature 98.4 F 97.8 F Pulse Rate 74 67 Respiratory 16 20 Rate Blood Pressure 133/73 123/81 O2 Sat by Pulse 98 100 Oximetry Medical Decision Making - Medical Decision Making No acute abnormalities on exam and denies presenting complaints at this time. Will check COVID and influenza swabs along with UA, CBC and BMP to provide reassurance of lack of acute abnormalities due to high anxiety levels. Glucose slightly elevated at 106 otherwise all labs normal. She is now complaining of generalized joint pain as well but reports that she cannot take NSAIDs due to history of gastric sleeve. She has not tried topical Voltaren gel. She states that she cannot take Zyrtec, Xyzal or Claritin due to paradoxical effect with excitability and agitation. She has not previously tried Ileana. Long discussion with patient along with spouse at the bedside regarding no acute processes at this time. Advised we'll give prescription for Ileana to trial for allergic symptoms and encouraged use of [id number] Voltaren gel for joint pain. Case discussed with Dr. Tyson. - Lab Data Result diagrams: 09/28/21 10:43 09/28/21 10:43 Lab Results 09/28/21 09/28/21 09/28/21 Range/Units 10:25 10:25 10:43 WBC 6.8 (3.8-10.6) k/uL RBC 4.63 (3.80-5.40) m/uL Hgb 12.9 (11.4-16.0) gm/dL Hct 39.3 (34.0-46.0) % MCV 85.0 (80.0-100.0) fL MCH 27.9 (25.0-35.0) pg MCHC 32.8 (31.0-37.0) g/dL RDW 14.6 (11.5-15.5) % Plt Count 310 (150-450) k/uL MPV 8.1 Neutrophils % 62 % Lymphocytes % 29 % Monocytes % 4 % Eosinophils % 2 % Basophils % 1 % Neutrophils # 4.2 (1.3-7.7) k/uL Lymphocytes # 2.0 (1.0-4.8) k/uL Monocytes # 0.3 (0-1.0) k/uL Eosinophils # 0.1 (0-0.7) k/uL Basophils # 0.1 (0-0.2) k/uL Sodium (137-145) mmol/L Potassium (3.5-5.1) mmol/L Chloride (98-107) mmol/L Carbon Dioxide (22-30) mmol/L Anion Gap mmol/L BUN (7-17) mg/dL Creatinine (0.52-1.04) mg/dL Est GFR (CKD-EPI)AfAm (>60 ml/min/1.73 sqM) Est GFR (CKD-EPI)NonAf (>60 ml/min/1.73 sqM) Glucose (74-99) mg/dL Calcium (8.4-10.2) mg/dL Urine Color Urine Appearance (Clear) Urine pH (5.0-8.0) Ur Specific [place] (1.001-1.035) Urine Protein (Negative) Urine Glucose (UA) (Negative) Urine Ketones (Negative) Urine Blood (Negative) Urine Nitrite (Negative) Urine Bilirubin (Negative) Urine Urobilinogen (<2.0) mg/dL Ur Leukocyte Esterase (Negative) Coronavirus (PCR) Not Detected (Not Detectd) Influenza Type A RNA Not Detected (Not Detectd) Influenza Type B (PCR) Not Detected (Not Detectd) 09/28/21 09/28/21 Range/Units 10:43 10:43 WBC (3.8-10.6) k/uL RBC (3.80-5.40) m/uL Hgb (11.4-16.0) gm/dL Hct (34.0-46.0) % MCV (80.0-100.0) fL MCH (25.0-35.0) pg MCHC (31.0-37.0) g/dL RDW (11.5-15.5) % Plt Count (150-450) k/uL MPV Neutrophils % % Lymphocytes % % Monocytes % % Eosinophils % % Basophils % % Neutrophils # (1.3-7.7) k/uL Lymphocytes # (1.0-4.8) k/uL Monocytes # (0-1.0) k/uL Eosinophils # (0-0.7) k/uL Basophils # (0-0.2) k/uL Sodium 137 (137-145) mmol/L Potassium 4.4 (3.5-5.1) mmol/L Chloride 103 (98-107) mmol/L Carbon Dioxide 24 (22-30) mmol/L Anion Gap 10 mmol/L BUN 11 (7-17) mg/dL Creatinine 0.80 (0.52-1.04) mg/dL Est GFR (CKD-EPI)AfAm >90 (>60 ml/min/1.73 sqM) Est GFR (CKD-EPI)NonAf >90 (>60 ml/min/1.73 sqM) Glucose 105 H (74-99) mg/dL Calcium 8.6 (8.4-10.2) mg/dL Urine Color Light Yellow Urine Appearance Clear (Clear) Urine pH 5.5 (5.0-8.0) Ur Specific [place] 1.015 (1.001-1.035) Urine Protein Negative (Negative) Urine Glucose (UA) Negative (Negative) Urine Ketones Negative (Negative) Urine Blood Negative (Negative) Urine Nitrite Negative (Negative) Urine Bilirubin Negative (Negative) Urine Urobilinogen <2.0 (<2.0) mg/dL Ur Leukocyte Esterase Negative (Negative) Coronavirus (PCR) (Not Detectd) Influenza Type A RNA (Not Detectd) Influenza Type B (PCR) (Not Detectd) Disposition Clinical Impression: Allergic conjunctivitis and rhinitis, Arthritis Disposition: HOME SELF-CARE Condition: Stable Instructions (If sedation given, give patient instructions): Urticaria (ED), Allergies (ED), Arthritis (ED) Additional Instructions: Please take ileana to help with itching lymph node swelling and puffy swollen eyes. Please obtain Voltaren gel to utilize on joints to help with arthritic pain. Please follow-up with your primary care provider for further treatment and evaluation of conditions. Please return to the Emergency Department if symptoms worsen or any other concerns. Prescriptions: Fexofenadine HCl [Ileana Allergy] 180 mg PO HS 30 Days #30 tab Is patient prescribed a controlled substance at d/c from ED?: No Referrals: Billy Jade III, MD [Primary Care Provider] - 1-2 days Time of Disposition: 12:19
[2021-09-28 11:01] LABS: Basophils # (A) 0.1 k/uL (0-0.2); Basophils % (A) 1 %; Eosinophils # (A) 0.1 k/uL (0-0.7); Eosinophils % (A) 2 %; HCT 39.3 % (34.0-46.0); HGB 12.9 gm/dL (11.4-16.0); Lymphocytes % (A) 29 %; MCH 27.9 pg (25.0-35.0); MCHC 32.8 g/dL (31.0-37.0); Mean Platelet Volume 8.1; Monocytes # (A) 0.3 k/uL (0-1.0); Monocytes % (A) 4 %; Neutrophils # (A) 4.2 k/uL (1.3-7.7); Neutrophils % (A) 62 %; Platelet Count 310 k/uL (150-450); RBC 4.63 m/uL (3.80-5.40); RDW 14.6 % (11.5-15.5); WBC 6.8 k/uL (3.8-10.6)
[2021-09-28 11:05] LABS: Appearance,Urine Clear (Clear); Bilirubin,Urine Negative (Negative); Blood,Urine Negative (Negative); Color,Urine Light Yellow; Glucose,Urine (UA) Negative (Negative); Ketones,Urine Negative (Negative); Leukocyte Esterase,Urine Negative (Negative); Nitrite,Urine Negative (Negative); PH, Urine 5.5 (5.0-8.0); Protein,Urine Negative (Negative); Specific Gravity,Urine 1.015 (1.001-1.035); Urobilinogen,Urine <2.0 mg/dL (<2.0)
[2021-09-28 11:13] LABS: African American GFR (CKD) >90 (>60 ml/min/1.73 sqM); Anion Gap 10 mmol/L; Blood Urea Nitrogen 11 mg/dL (7-17); Calcium 8.6 mg/dL (8.4-10.2); Carbon Dioxide 24 mmol/L (22-30); Chloride 103 mmol/L (98-107); Glucose 105 mg/dL (74-99); Non-African American GFR(CKD) >90 (>60 ml/min/1.73 sqM); Potassium 4.4 mmol/L (3.5-5.1); Sodium 137 mmol/L (137-145)
[2021-09-28 12:02] VITALS: BP 123/81; PULSE 67; RESP 20; TEMP 97.8
== END 2021-09-28 12:25 | disposition home or self-care (01) ==
LOC: EC 09:50
DX: M19.90 Unspecified osteoarthritis, unspecified site (principal); J31.0 Chronic rhinitis; H10.10 Acute atopic conjunctivitis, unspecified eye; E11.9 Type 2 diabetes mellitus without complications; K21.9 Gastro-esophageal reflux disease without esophagitis; I10 Essential (primary) hypertension; Z79.83 Long term (current) use of bisphosphonates; Z88.8 Allergy status to other drugs, medicaments and biological substances; Z88.9 Allergy status to unspecified drugs, medicaments and biological substances; Z91.041 Radiographic dye allergy status; Z88.2 Allergy status to sulfonamides; Z88.3 Allergy status to other anti-infective agents; Z88.6 Allergy status to analgesic agent
CPT/HCPCS: 36415; 80048; 81003; 85025; 87502; 87635

== ENCOUNTER 2021-12-13 15:53 | Emergency (ER) | payer OTHER ==
[2021-12-13 16:52] VITALS: BP 129/83; PULSE 71; RESP 18; TEMP 98.1
== END 2021-12-13 21:30 | disposition left against medical advice (07) ==
LOC: EC 15:53
DX: Z53.21 Procedure and treatment not carried out due to patient leaving prior to being seen by health care provider (principal)
CPT/HCPCS: 93005; 99499

== ENCOUNTER → 2022-02-17 | Outpatient (CLI) | payer OTHER ==
--- NOTE | 2022-02-20 08:51 | MM ---
Reason for Exam: Screening (asymptomatic). Last screening mammogram was performed 12 month(s) ago. Patient History: Menarche at age 15. First Full-Term at age 27. Left ovary removed at age 41. Right ovary removed at age 41. Hysterectomy at age 33. Hormonal Contraceptives for 15 years from age 16 until age 31. 2019, Benign Excisional Biopsy on the right side. Paternal grandmother had breast cancer, age 60. Risk Values: Maria C 5 year model risk: 0.9%. NCI Lifetime model risk: 12.4%. Prior Study Comparison: 02/15/2021 Bilateral Diagnostic Mammogram, [facility]. Tissue Density: There are scattered fibroglandular densities. Findings: Analyzed By CAD. There is no suspicious new group of microcalcifications or new suspicious mass in either breast. Overall Assessment: Negative, BI-RAD 1 Management: Screening Mammogram of both breasts in 1 year. A clinical breast exam by your physician is recommended on an annual basis and results should be correlated with mammographic findings. Electronically signed and approved by: Cali Rivera M.D.
== END | disposition home or self-care (01) ==
LOC: RADMAMWWP 07:30
PROVIDERS: ATTEND Obstetrics & Gynecology
DX: Z12.31 Encounter for screening mammogram for malignant neoplasm of breast (principal); Z80.3 Family history of malignant neoplasm of breast; Z98.890 Other specified postprocedural states
CPT/HCPCS: 77063; 77067

== ENCOUNTER 2022-03-15 06:11 | Emergency (ER) | payer OTHER ==
[2022-03-15 06:40] VITALS: TEMP 98.1
--- NOTE | 2022-03-15 07:17 | ED ---
URI HPI - General Chief Complaint: Upper Respiratory Infection Stated Complaint: Cough, ISHAAN Time Seen by Provider: 03/15/22 06:12 Source: patient, RN notes reviewed Mode of arrival: ambulatory Limitations: no limitations - History of Present Illness Initial Comments: 5-year-old female presents emergency Department with chief complaint of cough and cold-like symptoms. Patient states symptoms started primarily on Sunday. Patient states she has sinus congestion, sore throat, productive cough. Patient does have underlying asthma. Patient states her neighbors were COVID-19 positive that she recently found out. Patient denies any nausea vomiting diarrhea constipation or neck pain neck stiffness mild headache. - Related Data Home Medications Medication Instructions Recorded Confirmed Aspirin [Adult Low Dose Aspirin EC] 81 mg PO HS 07/30/20 05/25/21 Atomoxetine HCl [Strattera] 60 mg PO DAILY 07/30/20 05/25/21 Isosorbide Mononitrate [Imdur] 120 mg PO BID 07/30/20 05/25/21 Lansoprazole [Prevacid] 30 mg PO BID 07/30/20 05/25/21 buPROPion XL [Wellbutrin XL] 150 mg PO DAILY 07/30/20 05/25/21 guanFACINE [Tenex] 2 mg PO HS 07/30/20 05/25/21 Desvenlafaxine Succinate [Pristiq 25 mg PO DAILY 12/08/20 05/25/21 ER] Ergocalciferol [Vitamin D2 (1250 1,250 mcg PO TH 01/12/21 05/25/21 Mcg = 75254 Iu)] Albuterol Nebulized [Ventolin 2.5 mg INHALATION RT-QID PRN 05/25/21 05/25/21 Nebulized] Albuterol Sulfate [Proair Hfa] 2 puff INHALATION RT-QID PRN 05/25/21 05/25/21 Fluticasone Propionate [Flovent 2 puff INHALATION RT-BID 05/25/21 05/25/21 Hfa 44 mcg] carvediloL [Coreg] 25 mg PO BID 05/25/21 05/25/21 hydrOXYzine pamoate [Vistaril] 100 mg PO HS 05/25/21 05/25/21 lamoTRIgine [LaMICtal] 25 mg PO BID 05/25/21 05/25/21 metFORMIN HCL 500 mg PO AC-BID 05/25/21 05/25/21 Previous Rx's Medication Instructions Recorded Lidocaine 5% Patch [Lidoderm 5% 1 patch TOPICAL DAILY PRN 7 Days 05/25/21 Patch] #7 patch Fexofenadine HCl [Ileana Allergy] 180 mg PO HS 30 Days #30 tab 09/28/21 Allergies Allergy/AdvReac Type Severity Reaction Status Date / Time budesonide [From Symbicort] Allergy worse Verified 03/15/22 06:19 allergy symptoms formoterol [From Symbicort] Allergy worse Verified 03/15/22 06:19 allergy symptoms magnesium sulfate Allergy Rash/Hives Verified 03/15/22 06:19 [From Epsom Salt] methenamine [From Uribel] Allergy Rash/Hives Verified 03/15/22 06:19 methylene blue [From Uribel] Allergy Rash/Hives Verified 03/15/22 06:19 mold Allergy Dyspnea Verified 03/15/22 06:19 oxcarbazepine Allergy Rash/Hives Verified 03/15/22 06:19 [From Trileptal] salicylates [From Uribel] Allergy Rash/Hives Verified 03/15/22 06:19 sodium phosphate Allergy Rash/Hives Verified 03/15/22 06:19 [From Uribel] amitriptyline [From Elavil] AdvReac Edwards Verified 03/15/22 06:19 amoxicillin [From Augmentin] AdvReac Nausea & Verified 03/15/22 06:19 Vomiting clavulanic acid AdvReac Nausea & Verified 03/15/22 06:19 [From Augmentin] Vomiting dicyclomine [From Bentyl] AdvReac Rash/Hives Verified 03/15/22 06:19 levocetirizine [From Xyzal] AdvReac INSOMNIA Verified 03/15/22 06:19 montelukast [From Singulair] AdvReac "MAKES ME Verified 03/15/22 06:19 MENTALLY UNSTABLE" morphine AdvReac Abdominal Verified 03/15/22 06:19 Pain mushroom AdvReac Abdominal Verified 03/15/22 06:19 Pain NSAIDS (Non-Steroidal AdvReac Unknown Verified 03/15/22 06:19 Anti-Inflamma oats AdvReac Abdominal Verified 03/15/22 06:19 Pain Sxvjpmf-YPE-OpQ Reductase AdvReac joint Verified 03/15/22 06:19 Inhibitor inflammation [Tolxstp-Gxk-Xng Reductase Inhibitor] Sulfa (Sulfonamide AdvReac Abdominal Verified 03/15/22 06:19 Antibiotics) Pain topiramate [From Topamax] AdvReac Edwards Verified 03/15/22 06:19 tree nut [Nut] AdvReac Abdominal Verified 03/15/22 06:19 Pain dust Allergy Dyspnea Uncoded 03/15/22 06:19 urin D Allergy Rash/Hives Uncoded 03/15/22 06:19 Review of Systems ROS Statement: Those systems with pertinent positive or pertinent negative responses have been documented in the HPI. ROS Other: All systems not noted in ROS Statement are negative. Past Medical History Past Medical History: Chest Pain / Angina, Diabetes Mellitus, GERD/Reflux, Hypertension, Osteoarthritis (OA), Sleep Apnea/CPAP/BIPAP Additional Past Medical History / Comment(s): obesity, BOVINE AORTIC ARCH, POSSIBLE MS-ONGOING TESTS, BILAT CTR, ENLARGED LYMPH NODES IN THROAT, HERNIAS, USES C-PAP, PREDIABETIC. pelvic floor dysfunction. History of Any Multi-Drug Resistant Organisms: MRSA Date of last positivie culture/infection: 2005 MDRO Source:: unknown Past Surgical History: Bariatric Surgery, Cholecystectomy, Hysterectomy Additional Past Surgical History / Comment(s): gastric sleeve, eye surgery , COLONOSCOPY/EGD, THROAT SX 07/2020, LYMPH NODE AND SALIVARY GLAND REMOVED Past Anesthesia/Blood Transfusion Reactions: No Reported Reaction Past Psychological History: ADD/ADHD, Anxiety, Depression Smoking Status: Never smoker Past Alcohol Use History: None Reported Past Drug Use History: None Reported - Past Family History Mother Family Medical History: Thyroid Disorder General Exam Limitations: no limitations General appearance: alert, in no apparent distress Head exam: Present: atraumatic, normocephalic, normal inspection Eye exam: Present: normal appearance, PERRL, EOMI. Absent: scleral icterus, conjunctival injection, periorbital swelling ENT exam: Present: normal exam, normal oropharynx, mucous membranes moist Neck exam: Present: normal inspection, full ROM. Absent: tenderness, meningismus, lymphadenopathy Respiratory exam: Present: normal lung sounds bilaterally. Absent: respiratory distress, wheezes, rales, rhonchi, stridor Cardiovascular Exam: Present: regular rate, normal rhythm, normal heart sounds. Absent: systolic murmur, diastolic murmur, rubs, gallop, clicks GI/Abdominal exam: Present: soft, normal bowel sounds. Absent: distended, tenderness, guarding, rebound, rigid Neurological exam: Present: alert Skin exam: Present: warm, dry, intact, normal color. Absent: rash Course Vital Signs 03/15/22 03/15/22 06:19 06:39 Temperature 97.9 F 98.1 F Pulse Rate 85 78 Respiratory 18 16 Rate Blood Pressure 128/86 127/81 O2 Sat by Pulse 98 100 Oximetry Medical Decision Making - Medical Decision Making Was pt. sent in by a medical professional or institution? @ None Did you speak to anyone other than the patient for history? @ None Did you review nursing and triage notes? @ [Reviewed and agreed] Were old charts reviewed? @ None Differential Diagnosis? @ Upper respiratory infection, pneumonia, RSV, influenza, COVID-19 EKG interpreted by me (3pts min.)? @ [none] X-rays interpreted by me (1pt min.)? @ [Chest x-ray no acute abnormality.] CT interpreted by me (1pt min.)? @ [none] U/S interpreted by me (1pt. min.)? @ [none] What testing was considered but not performed? (CT, X-rays, U/S, labs)? Why? @ [None?] What meds were considered but not given? Why? @ [none] Did you discuss the management of the patient with other professionals? @ [Attending Dr. Garibay] Did you reconcile home meds? @ [none] Was smoking cessation discussed for >3mins.? @ [none] Was critical care preformed (if so, how long)? @ [none] Were there social determinants of health that impacted care today? How? (Homelessness, low income, unemployed, alcoholism, drug addiction, transportation, low edu. Level, literacy, decrease access to med. care, intermediate, rehab)? @ [None] Was patient admitted / discharged? @ [Discharged] Undiagnosed new problem with uncertain prognosis? @ [none] Drug Therapy requiring intensive monitoring for toxicity (Heparin, Nitro, Insulin, Cardizem)? @ [none] Were any procedures done? @ [none] Diagnosis/symptom? @ [RSV] Acute, or Chronic, or Acute on Chronic? @ [Acute] Uncomplicated (without systemic symptoms) or Complicated (systemic symptoms)? @ Uncomplicated Side effects of treatment? @ [none] Exacerbation, Progression, or Severe Exacerbation] @ [no] Poses a threat to life or bodily function? @ [no] 5-year-old female presented for cough and cold like symptoms. Patient is RSV positive patient discharged with supportive treatment. - Lab Data Lab Results 03/15/22 Range/Units 06:27 Influenza Type A (PCR) Not Detected (Not Detectd) Influenza Type B (PCR) Not Detected (Not Detectd) RSV (PCR) Detected A (Not Detectd) SARS-CoV-2 (PCR) Not Detected (Not Detectd) Disposition Clinical Impression: RSV infection Disposition: HOME SELF-CARE Condition: Stable Instructions (If sedation given, give patient instructions): Upper Respiratory Infection (ED) Additional Instructions: Please return to the Emergency Department if symptoms worsen or any other concerns. Is patient prescribed a controlled substance at d/c from ED?: No Referrals: Billy Jade III, MD [Primary Care Provider] - 1-2 days Time of Disposition: 08:07
[2022-03-15 08:16] VITALS: BP 140/97; PULSE 81; RESP 18
--- NOTE | 2022-03-15 08:22 | XR ---
EXAMINATION TYPE: XR chest 2V DATE OF EXAM: 03/15/2022 COMPARISON: 07/10/2021 INDICATION: Cough TECHNIQUE: Frontal and lateral views of the chest are obtained. FINDINGS: The heart size is normal. The pulmonary vasculature is normal. The lungs are clear. IMPRESSION: 1. No acute pulmonary process.
== END 2022-03-15 08:16 | disposition home or self-care (01) ==
LOC: EC 06:11
DX: R06.02 Shortness of breath (principal); R05.9 Cough, unspecified; B97.4 Respiratory syncytial virus as the cause of diseases classified elsewhere; E11.9 Type 2 diabetes mellitus without complications; I10 Essential (primary) hypertension; F90.9 Attention-deficit hyperactivity disorder, unspecified type; F41.9 Anxiety disorder, unspecified; K21.9 Gastro-esophageal reflux disease without esophagitis; F32.A Depression, unspecified; Z88.6 Allergy status to analgesic agent; Z88.0 Allergy status to penicillin; Z88.8 Allergy status to other drugs, medicaments and biological substances; Z91.018 Allergy to other foods; Z88.2 Allergy status to sulfonamides; Z20.822 Contact with and (suspected) exposure to COVID-19; Z90.89 Acquired absence of other organs; Z90.710 Acquired absence of both cervix and uterus; Z98.84 Bariatric surgery status; Z79.899 Other long term (current) drug therapy; Z79.84 Long term (current) use of oral hypoglycemic drugs
CPT/HCPCS: 71046; 87636; 99285

== ENCOUNTER → 2022-03-16 | Outpatient (CLI) | payer OTHER ==
--- NOTE | 2022-03-17 08:46 | CT ---
EXAMINATION TYPE: CT abdomen pelvis wo con DATE OF EXAM: 03/16/2022 COMPARISON: 02/24/2021 HISTORY: rt kidney pain x4-[address] DLP: 1252 mGycm Examination of the solid and hollow viscera is limited given the lack of contrast. FINDINGS: LUNG BASES: No evidence for nodule. No evidence for infiltrate. LIVER/GB: There are changes of prior cholecystectomy. No space-occupying hepatic lesion. PANCREAS: No pancreatic mass identified. No inflammatory process seen. SPLEEN: No evidence for splenomegaly. No intrasplenic lesions seen. ADRENALS: No adrenal nodules identified. No evidence for thickening. KIDNEYS: No evidence for renal mass. No nephrolithiasis. No hydronephrosis. BOWEL: Appendix has a normal appearance. No evidence of bowel obstruction. No inflammatory process. Lymph nodes: No evidence for adenopathy greater than 1 cm. Abdominal aorta: Atheromatous changes seen. No evidence for aneurysm. Genital organs: No significant abnormality. Other: No significant abnormality. IMPRESSION: NO SIGNIFICANT ABNORMALITY SEEN TO ACCOUNT FOR THE PATIENT'S SYMPTOMS.
== END | disposition home or self-care (01) ==
LOC: RADCTMAIN 15:50
PROVIDERS: ATTEND Family Medicine
DX: R10.84 Generalized abdominal pain (principal); R11.0 Nausea; K62.5 Hemorrhage of anus and rectum; T18.9XXD Foreign body of alimentary tract, part unspecified, subsequent encounter
CPT/HCPCS: 74176

== ENCOUNTER 2022-08-04 18:26 | Emergency (ER) | payer BC, OTHER ==
[2022-08-04 18:30] VITALS: TEMP 98
--- NOTE | 2022-08-04 18:54 | ED ---
General Adult HPI - General Chief complaint: Shortness of Breath Stated complaint: SOB Time Seen by Provider: 08/04/22 18:36 Source: patient, RN notes reviewed Mode of arrival: wheelchair Limitations: no limitations - History of Present Illness Initial comments: 42-year-old female presents emergency Department with chief complaint of shortness of breath and nausea that started shortly before presenting to the emergency department. She states that she feels like she has a hard time catching her breath. Upon my evaluation, patient was not nauseous. She states that this is having before and has been happening more frequently in the past 2- 3 weeks. She has been unable to identify any triggers. Denies changes to her medications. Denies fever, chills. Denies chest pain. Denies cough. Patient uses an inhaler for her asthma but states this doesn't help and feels different from her asthma. She follows with a research director for asthma and therapist for PTSD and anxiety. She has a history of hypertension, fibromyalgia. - Related Data Home Medications Medication Instructions Recorded Confirmed Aspirin [Adult Low Dose Aspirin EC] 81 mg PO HS 07/30/20 05/25/21 Atomoxetine HCl [Strattera] 60 mg PO DAILY 07/30/20 05/25/21 Isosorbide Mononitrate [Imdur] 120 mg PO BID 07/30/20 05/25/21 Lansoprazole [Prevacid] 30 mg PO BID 07/30/20 05/25/21 buPROPion XL [Wellbutrin XL] 150 mg PO DAILY 07/30/20 05/25/21 guanFACINE [Tenex] 2 mg PO HS 07/30/20 05/25/21 Desvenlafaxine Succinate [Pristiq 25 mg PO DAILY 12/08/20 05/25/21 ER] Ergocalciferol [Vitamin D2 (1250 1,250 mcg PO TH 01/12/21 05/25/21 Mcg = 57970 Iu)] Albuterol Nebulized [Ventolin 2.5 mg INHALATION RT-QID PRN 05/25/21 05/25/21 Nebulized] Albuterol Sulfate [Proair Hfa] 2 puff INHALATION RT-QID PRN 05/25/21 05/25/21 Fluticasone Propionate [Flovent 2 puff INHALATION RT-BID 05/25/21 05/25/21 Hfa 44 mcg] carvediloL [Coreg] 25 mg PO BID 05/25/21 05/25/21 hydrOXYzine pamoate [Vistaril] 100 mg PO HS 05/25/21 05/25/21 lamoTRIgine [LaMICtal] 25 mg PO BID 05/25/21 05/25/21 metFORMIN HCL 500 mg PO AC-BID 05/25/21 05/25/21 Previous Rx's Medication Instructions Recorded Lidocaine 5% Patch [Lidoderm 5% 1 patch TOPICAL DAILY PRN 7 Days 05/25/21 Patch] #7 patch Fexofenadine HCl [Ileana Allergy] 180 mg PO HS 30 Days #30 tab 09/28/21 Ondansetron [Zofran] 4 mg PO Q8HR PRN #9 tab 08/04/22 Allergies Allergy/AdvReac Type Severity Reaction Status Date / Time budesonide [From Symbicort] Allergy worse Verified 03/15/22 06:19 allergy symptoms formoterol [From Symbicort] Allergy worse Verified 03/15/22 06:19 allergy symptoms magnesium sulfate Allergy Rash/Hives Verified 03/15/22 06:19 [From Epsom Salt] methenamine [From Uribel] Allergy Rash/Hives Verified 03/15/22 06:19 methylene blue [From Uribel] Allergy Rash/Hives Verified 03/15/22 06:19 mold Allergy Dyspnea Verified 03/15/22 06:19 oxcarbazepine Allergy Rash/Hives Verified 03/15/22 06:19 [From Trileptal] salicylates [From Uribel] Allergy Rash/Hives Verified 03/15/22 06:19 sodium phosphate Allergy Rash/Hives Verified 03/15/22 06:19 [From Uribel] amitriptyline [From Elavil] AdvReac Edwards Verified 03/15/22 06:19 amoxicillin [From Augmentin] AdvReac Nausea & Verified 03/15/22 06:19 Vomiting clavulanic acid AdvReac Nausea & Verified 03/15/22 06:19 [From Augmentin] Vomiting dicyclomine [From Bentyl] AdvReac Rash/Hives Verified 03/15/22 06:19 levocetirizine [From Xyzal] AdvReac INSOMNIA Verified 03/15/22 06:19 montelukast [From Singulair] AdvReac "MAKES ME Verified 03/15/22 06:19 MENTALLY UNSTABLE" morphine AdvReac Abdominal Verified 03/15/22 06:19 Pain mushroom AdvReac Abdominal Verified 03/15/22 06:19 Pain NSAIDS (Non-Steroidal AdvReac Unknown Verified 03/15/22 06:19 Anti-Inflamma oats AdvReac Abdominal Verified 03/15/22 06:19 Pain Cjeszwk-RLU-JtN Reductase AdvReac joint Verified 03/15/22 06:19 Inhibitor inflammation [Pmgvygl-Usx-Yvj Reductase Inhibitor] Sulfa (Sulfonamide AdvReac Abdominal Verified 03/15/22 06:19 Antibiotics) Pain topiramate [From Topamax] AdvReac Edwards Verified 03/15/22 06:19 tree nut [Nut] AdvReac Abdominal Verified 03/15/22 06:19 Pain dust Allergy Dyspnea Uncoded 03/15/22 06:19 urin D Allergy Rash/Hives Uncoded 03/15/22 06:19 Review of Systems ROS Statement: Those systems with pertinent positive or pertinent negative responses have been documented in the HPI. ROS Other: All systems not noted in ROS Statement are negative. Past Medical History Past Medical History: Chest Pain / Angina, Diabetes Mellitus, GERD/Reflux, Hypertension, Osteoarthritis (OA), Sleep Apnea/CPAP/BIPAP Additional Past Medical History / Comment(s): obesity, BOVINE AORTIC ARCH, POSSIBLE MS-ONGOING TESTS, BILAT CTR, ENLARGED LYMPH NODES IN THROAT, HERNIAS, USES C-PAP, PREDIABETIC. pelvic floor dysfunction. History of Any Multi-Drug Resistant Organisms: MRSA Date of last positivie culture/infection: 2005 MDRO Source:: unknown Past Surgical History: Bariatric Surgery, Cholecystectomy, Hysterectomy Additional Past Surgical History / Comment(s): gastric sleeve, eye surgery , COLONOSCOPY/EGD, THROAT SX 07/2020, LYMPH NODE AND SALIVARY GLAND REMOVED Past Anesthesia/Blood Transfusion Reactions: No Reported Reaction Past Psychological History: ADD/ADHD, Anxiety, Depression Smoking Status: Never smoker Past Alcohol Use History: None Reported Past Drug Use History: None Reported - Past Family History Mother Family Medical History: Thyroid Disorder General Exam Limitations: no limitations General appearance: anxious Head exam: Present: atraumatic, normocephalic, normal inspection Eye exam: Present: normal appearance, PERRL, EOMI. Absent: scleral icterus, conjunctival injection, periorbital swelling ENT exam: Present: normal exam, mucous membranes moist Neck exam: Present: normal inspection. Absent: tenderness, meningismus, lymphadenopathy Respiratory exam: Present: normal lung sounds bilaterally. Absent: respiratory distress, wheezes, rales, rhonchi, stridor Cardiovascular Exam: Present: regular rate, normal rhythm, normal heart sounds. Absent: systolic murmur, diastolic murmur, rubs, gallop, clicks GI/Abdominal exam: Present: soft, normal bowel sounds. Absent: distended, t enderness, guarding, rebound, rigid Extremities exam: Present: normal inspection, full ROM, normal capillary refill. Absent: tenderness, pedal edema, joint swelling, calf tenderness Back exam: Present: normal inspection Neurological exam: Present: alert, oriented X3, CN II-XII intact Psychiatric exam: Present: anxious Skin exam: Present: warm, dry, intact, normal color. Absent: rash Course Vital Signs 08/04/22 08/04/22 08/04/22 18:28 18:30 19:30 Temperature 98.0 F Pulse Rate 71 68 60 Respiratory 20 16 20 Rate Blood Pressure 152/84 120/86 162/76 O2 Sat by Pulse 100 99 98 Oximetry 08/04/22 08/04/22 21:00 21:53 Temperature Pulse Rate 65 68 Respiratory 16 16 Rate Blood Pressure 127/98 130/68 O2 Sat by Pulse 99 98 Oximetry Medical Decision Making - Medical Decision Making Was pt. sent in by a medical professional or institution (, PA, SAW SUPERINTENDENT, urgent care, hospital, or shelter...) When possible be specific @ -No Did you speak to anyone other than the patient for history (EMS, parent, family, police, friend...)? What history was obtained from this source @ -No Did you review nursing and triage notes (agree or disagree)? Why? @ -I reviewed and agree with nursing and triage notes Were old charts reviewed (outside hosp., previous admission, EMS record, old EKG, old radiological studies, urgent care reports/EKG's, shelter records)? Report findings @ -No old charts were reviewed Differential Diagnosis (chest pain, altered mental status, abdominal pain women, abdominal pain men, vaginal bleeding, weakness, fever, dyspnea, syncope, headache, dizziness, GI bleed, back pain, seizure, CVA, palpatations, mental health, musculoskeletal)? @ -Differential Dyspnea: Coronary syndrome, arrhythmia, tamponade, asthma, COPD, pulmonary embolism, pneumonia, pneumothorax, pulmonary effusion, anaphylaxis, diabetic ketoacidosis, flailed chest, pulmonary contusion, diaphragmatic rupture, anemia, neuromuscular, this is not meant to be an all-inclusive list. EKG interpreted by me (3pts min.). @ -EKG at 1900 shows sinus rhythm, rate 66, UT 172, QRS 100, QTQTc 4094 22 X-rays interpreted by me (1pt min.). @ -Chest x-ray showed no acute cardiopulmonary process CT interpreted by me (1pt min.). @ -None done U/S interpreted by me (1pt. min.). @ -None done What testing was considered but not performed or refused? (CT, X-rays, U/S, labs)? Why? @ -None What meds were considered but not given or refused? Why? @ -None Did you discuss the management of the patient with other professionals (professionals i.e. , PA, SAW SUPERINTENDENT, lab, RT, psych nurse, social group worker, arnp, teacher, licensed mortgage loan officer, watch case polisher)? Give summary @ -No Was smoking cessation discussed for >3mins.? @ -No Was critical care preformed (if so, how long)? @ -No Were there social determinants of health that impacted care today? How? (Homelessness, low income, unemployed, alcoholism, drug addiction, transportation, low edu. Level, literacy, decrease access to med. care, care home, rehab)? @ -No Was there de-escalation of care discussed even if they declined (Discuss DNR or withdrawal of care, Hospice)? DNR status @ -No What co-morbidities impacted this encounter? (DM, HTN, Smoking, COPD, CAD, Cancer, CVA, ARF, Chemo, Hep., AIDS, mental health diagnosis, sleep apnea, morbid obesity)? @ -None Was patient admitted / discharged? Hospital course, mention meds given and rout e, prescriptions, significant lab abnormalities, going to OR and other pertinent info. @ -Discharged. Patient presented to the emergency department chief complaint of difficulty catching her breath and nausea. On exam, vital signs stable, lungs clear to auscultation, heart regular rate and rhythm. EKG was obtained which showed sinus rhythm, rate 66. CBC and CMP were within normal limits. Troponin <0.012, negative ddimer. UA showed no evidence for urinary tract infection. Chest x-ray showed no acute cardiopulmonary process. Patient was not nauseous at time of arrival. Upon reevaluation, patient appears to be comfortable. Patient was evaluated by her research director for this already. Patient was given a prescription for 3 days of Zofran and advised to follow-up with her primary care physician and her research director. Patient discharged in stable condition. Case discussed my attending, Dr. Dickinson Undiagnosed new problem with uncertain prognosis? @ -No Drug Therapy requiring intensive monitoring for toxicity (Heparin, Nitro, Insulin, Cardizem)? @ -No Were any procedures done? @ -No Diagnosis/symptom? @ -Nausea Acute, or Chronic, or Acute on Chronic? @ -Acute Uncomplicated (without systemic symptoms) or Complicated (systemic symptoms)? @ -uncomplicated Side effects of treatment? @ -No Exacerbation, Progression, or Severe Exacerbation? @ -No Poses a threat to life or bodily function? How? (Chest pain, [place], CO, pneumonia, PE, COPD, DKA, ARF, appy, cholecystitis, CVA, Diverticulitis, Homicidal, Suicidal, threat to staff... and all critical care pts) @ -No - Lab Data Result diagrams: 08/04/22 19:11 08/04/22 19:11 Lab Results 08/04/22 08/04/22 08/04/22 Range/Units 19:11 19:11 19:11 WBC 6.7 (3.8-10.6) k/uL RBC 4.51 (3.80-5.40) m/uL Hgb 12.4 (11.4-16.0) gm/dL Hct 37.4 (34.0-46.0) % MCV 83.0 (80.0-100.0) fL MCH 27.6 (25.0-35.0) pg MCHC 33.2 (31.0-37.0) g/dL RDW 14.0 (11.5-15.5) % Plt Count 234 (150-450) k/uL MPV 8.7 Neutrophils % 52 % Lymphocytes % 39 % Monocytes % 5 % Eosinophils % 1 % Basophils % 0 % Neutrophils # 3.5 (1.3-7.7) k/uL Lymphocytes # 2.6 (1.0-4.8) k/uL Monocytes # 0.3 (0-1.0) k/uL Eosinophils # 0.1 (0-0.7) k/uL Basophils # 0.0 (0-0.2) k/uL PT 10.0 (9.0-12.0) sec INR 0.9 (<1.2) APTT 24.3 (22.0-30.0) sec D-Dimer 0.19 (<0.60) mg/L FEU Sodium (137-145) mmol/L Potassium (3.5-5.1) mmol/L Chloride (98-107) mmol/L Carbon Dioxide (22-30) mmol/L Anion Gap mmol/L BUN (7-17) mg/dL Creatinine (0.52-1.04) mg/dL Est GFR (CKD-EPI)AfAm (>60 ml/min/1.73 sqM) Est GFR (CKD-EPI)NonAf (>60 ml/min/1.73 sqM) Glucose (74-99) mg/dL Plasma Lactic Acid Amador (0.7-2.0) mmol/L Calcium (8.4-10.2) mg/dL Total Bilirubin (0.2-1.3) mg/dL AST (14-36) U/L ALT (4-34) U/L Alkaline Phosphatase (38-126) U/L Troponin I (0.000-0.034) ng/mL Total Protein (6.3-8.2) g/dL Albumin (3.5-5.0) g/dL Urine Color Yellow Urine Appearance Clear (Clear) Urine pH 6.5 (5.0-8.0) Ur Specific [place] 1.023 (1.001-1.035) Urine Protein Negative (Negative) Urine Glucose (UA) Negative (Negative) Urine Ketones Negative (Negative) Urine Blood Negative (Negative) Urine Nitrite Negative (Negative) Urine Bilirubin Negative (Negative) Urine Urobilinogen <2.0 (<2.0) mg/dL Ur Leukocyte Esterase Trace H (Negative) Urine WBC 4 (0-5) /hpf Ur Squamous Epith Cells 4 (0-4) /hpf Amorphous Sediment Rare H (None) /hpf Urine Mucus Rare H (None) /hpf 08/04/22 08/04/22 08/04/22 Range/Units 19:11 19:11 19:11 WBC (3.8-10.6) k/uL RBC (3.80-5.40) m/uL Hgb (11.4-16.0) gm/dL Hct (34.0-46.0) % MCV (80.0-100.0) fL MCH (25.0-35.0) pg MCHC (31.0-37.0) g/dL RDW (11.5-15.5) % Plt Count (150-450) k/uL MPV Neutrophils % % Lymphocytes % % Monocytes % % Eosinophils % % Basophils % % Neutrophils # (1.3-7.7) k/uL Lymphocytes # (1.0-4.8) k/uL Monocytes # (0-1.0) k/uL Eosinophils # (0-0.7) k/uL Basophils # (0-0.2) k/uL PT (9.0-12.0) sec INR (<1.2) APTT (22.0-30.0) sec D-Dimer (<0.60) mg/L FEU Sodium 140 (137-145) mmol/L Potassium 3.9 (3.5-5.1) mmol/L Chloride 104 (98-107) mmol/L Carbon Dioxide 24 (22-30) mmol/L Anion Gap 12 mmol/L BUN 14 (7-17) mg/dL Creatinine 1.02 (0.52-1.04) mg/dL Est GFR (CKD-EPI)AfAm 79 (>60 ml/min/1.73 sqM) Est GFR (CKD-EPI)NonAf 69 (>60 ml/min/1.73 sqM) Glucose 93 (74-99) mg/dL Plasma Lactic Acid [place] 1.5 (0.7-2.0) mmol/L Calcium 9.2 (8.4-10.2) mg/dL Total Bilirubin 0.2 (0.2-1.3) mg/dL AST 20 (14-36) U/L ALT 22 (4-34) U/L Alkaline Phosphatase 59 (38-126) U/L Troponin I <0.012 (0.000-0.034) ng/mL Total Protein 7.1 (6.3-8.2) g/dL Albumin 4.0 (3.5-5.0) g/dL Urine Color Urine Appearance (Clear) Urine pH (5.0-8.0) Ur Specific [place] (1.001-1.035) Urine Protein (Negative) Urine Glucose (UA) (Negative) Urine Ketones (Negative) Urine Blood (Negative) Urine Nitrite (Negative) Urine Bilirubin (Negative) Urine Urobilinogen (<2.0) mg/dL Ur Leukocyte Esterase (Negative) Urine WBC (0-5) /hpf Ur Squamous Epith Cells (0-4) /hpf Amorphous Sediment (None) /hpf Urine Mucus (None) /hpf Disposition Clinical Impression: Nausea, Anxiety Disposition: HOME SELF-CARE Condition: Stable Instructions (If sedation given, give patient instructions): Acute Nausea and Vomiting (ED) Prescriptions: Ondansetron [Zofran] 4 mg PO Q8HR PRN #9 tab PRN Reason: Nausea Is patient prescribed a controlled substance at d/c from ED?: No Referrals: Billy Jade III, MD [STAFF PHYSICIAN] - 1-2 days Time of Disposition: 21:14
[2022-08-04 19:38] LABS: Calcium 9.2 mg/dL (8.4-10.2); Potassium 3.9 mmol/L (3.5-5.1); Total Bilirubin 0.2 mg/dL (0.2-1.3); Total Protein 7.1 g/dL (6.3-8.2)
[2022-08-04 19:40] LABS: Basophils % (A) 0 %; Eosinophils # (A) 0.1 k/uL (0-0.7); Eosinophils % (A) 1 %; HCT 37.4 % (34.0-46.0); HGB 12.4 gm/dL (11.4-16.0); Lymphocytes # (A) 2.6 k/uL (1.0-4.8); Lymphocytes % (A) 39 %; MCH 27.6 pg (25.0-35.0); MCHC 33.2 g/dL (31.0-37.0); Mean Platelet Volume 8.7; Monocytes # (A) 0.3 k/uL (0-1.0); Monocytes % (A) 5 %; Neutrophils # (A) 3.5 k/uL (1.3-7.7); Neutrophils % (A) 52 %; Platelet Count 234 k/uL (150-450); RBC 4.51 m/uL (3.80-5.40); WBC 6.7 k/uL (3.8-10.6)
[2022-08-04 19:51] LABS: Amorphous Sediment,Urine Rare /hpf; Appearance,Urine Clear (Clear); Bilirubin,Urine Negative (Negative); Blood,Urine Negative (Negative); Color,Urine Yellow; Glucose,Urine (UA) Negative (Negative); Ketones,Urine Negative (Negative); Leukocyte Esterase,Urine Trace (Negative); Mucus,Urine Rare /hpf; Nitrite,Urine Negative (Negative); PH, Urine 6.5 (5.0-8.0); Protein,Urine Negative (Negative); Specific Gravity,Urine 1.023 (1.001-1.035); Squamous Epithelial Cell,Urine 4 /hpf (0-4); Urobilinogen,Urine <2.0 mg/dL (<2.0); WBC,Urine 4 /hpf (0-5)
[2022-08-04 20:49] LABS: INR 0.9 (<1.2); Partial Thromboplastin Time 24.3 sec (22.0-30.0)
--- NOTE | 2022-08-04 20:50 | XR ---
EXAMINATION TYPE: XR chest 2V DATE OF EXAM: 08/04/2022 8:05 PM COMPARISON: Chest radiographs from 03/15/2022 TECHNIQUE: XR chest 2V Frontal and lateral views of the chest. CLINICAL INDICATION:Female, 42 years old with history of difficulty breathing; FINDINGS: Lungs/Pleura: There is no evidence of pleural effusion, focal consolidation, or pneumothorax. Pulmonary vascularity: Unremarkable. Heart/mediastinum: Cardiomediastinal silhouette is unremarkable. Musculoskeletal: No acute osseous pathology. IMPRESSION: No acute cardiopulmonary disease/process.
[2022-08-04 21:03] VITALS: RESP 16
[2022-08-04 21:54] VITALS: BP 130/68; PULSE 68
== END 2022-08-04 21:45 | disposition home or self-care (01) ==
LOC: EC 18:26
DX: F41.9 Anxiety disorder, unspecified (principal); R11.0 Nausea; E11.9 Type 2 diabetes mellitus without complications; I10 Essential (primary) hypertension; K21.9 Gastro-esophageal reflux disease without esophagitis; F32.A Depression, unspecified; Z79.84 Long term (current) use of oral hypoglycemic drugs; Z79.82 Long term (current) use of aspirin; Z79.899 Other long term (current) drug therapy; Z88.0 Allergy status to penicillin; Z88.2 Allergy status to sulfonamides; Z88.6 Allergy status to analgesic agent; Z88.8 Allergy status to other drugs, medicaments and biological substances; Z91.018 Allergy to other foods; Z91.048 Other nonmedicinal substance allergy status; Z91.09 Other allergy status, other than to drugs and biological substances
CPT/HCPCS: 36415; 71046; 80053; 81001; 83605; 84484; 85025; 85379; 85610; 85730; 93005; 99285

== ENCOUNTER 2022-10-07 04:47 | Emergency (ER) | payer BC, OTHER ==
[2022-10-07 04:52] VITALS: RESP 18; TEMP 98
--- NOTE | 2022-10-07 05:51 | ED ---
General Adult HPI - General Chief complaint: Skin/Abscess/Foreign Body Stated complaint: Infection Time Seen by Provider: 10/07/22 05:27 Source: patient Mode of arrival: ambulatory Limitations: no limitations - History of Present Illness Initial comments: 42-year-old female presents to the emergency department reporting rash to her left groin. Patient is obese and states that where her skin fold is that she noted an odor and had pain. Denies history of similar in the past. Is not placing any medications to the site at this time. No fevers. No new exposures. No other alleviating, precipitating or modifying factors - Related Data Home Medications Medication Instructions Recorded Confirmed Aspirin [Adult Low Dose Aspirin EC] 81 mg PO HS 07/30/20 05/25/21 Atomoxetine HCl [Strattera] 60 mg PO DAILY 07/30/20 05/25/21 Isosorbide Mononitrate [Imdur] 120 mg PO BID 07/30/20 05/25/21 Lansoprazole [Prevacid] 30 mg PO BID 07/30/20 05/25/21 buPROPion XL [Wellbutrin XL] 150 mg PO DAILY 07/30/20 05/25/21 guanFACINE [Tenex] 2 mg PO HS 07/30/20 05/25/21 Desvenlafaxine Succinate [Pristiq 25 mg PO DAILY 12/08/20 05/25/21 ER] Ergocalciferol [Vitamin D2 (1250 1,250 mcg PO TH 01/12/21 05/25/21 Mcg = 35352 Iu)] Albuterol Nebulized [Ventolin 2.5 mg INHALATION RT-QID PRN 05/25/21 05/25/21 Nebulized] Albuterol Sulfate [Proair Hfa] 2 puff INHALATION RT-QID PRN 05/25/21 05/25/21 Fluticasone Propionate [Flovent 2 puff INHALATION RT-BID 05/25/21 05/25/21 Hfa 44 mcg] carvediloL [Coreg] 25 mg PO BID 05/25/21 05/25/21 hydrOXYzine pamoate [Vistaril] 100 mg PO HS 05/25/21 05/25/21 lamoTRIgine [LaMICtal] 25 mg PO BID 05/25/21 05/25/21 metFORMIN HCL 500 mg PO AC-BID 05/25/21 05/25/21 Previous Rx's Medication Instructions Recorded Lidocaine 5% Patch [Lidoderm 5% 1 patch TOPICAL DAILY PRN 7 Days 05/25/21 Patch] #7 patch Fexofenadine HCl [Ileana Allergy] 180 mg PO HS 30 Days #30 tab 09/28/21 Ondansetron [Zofran] 4 mg PO Q8HR PRN #9 tab 08/04/22 Nystatin 100,000 Unit/gm Powd 1 applic TOPICAL BID #30 gram 10/07/22 [Mycostatin Powder] Allergies Allergy/AdvReac Type Severity Reaction Status Date / Time budesonide [From Symbicort] Allergy worse Verified 10/07/22 04:52 allergy symptoms formoterol [From Symbicort] Allergy worse Verified 10/07/22 04:52 allergy symptoms magnesium sulfate Allergy Rash/Hives Verified 10/07/22 04:52 [From Epsom Salt] methenamine [From Uribel] Allergy Rash/Hives Verified 10/07/22 04:52 methylene blue [From Uribel] Allergy Rash/Hives Verified 10/07/22 04:52 mold Allergy Dyspnea Verified 10/07/22 04:52 oxcarbazepine Allergy Rash/Hives Verified 10/07/22 04:52 [From Trileptal] salicylates [From Uribel] Allergy Rash/Hives Verified 10/07/22 04:52 sodium phosphate Allergy Rash/Hives Verified 10/07/22 04:52 [From Uribel] amitriptyline [From Elavil] AdvReac Edwards Verified 10/07/22 04:52 amoxicillin [From Augmentin] AdvReac Nausea & Verified 10/07/22 04:52 Vomiting clavulanic acid AdvReac Nausea & Verified 10/07/22 04:52 [From Augmentin] Vomiting dicyclomine [From Bentyl] AdvReac Rash/Hives Verified 10/07/22 04:52 levocetirizine [From Xyzal] AdvReac INSOMNIA Verified 10/07/22 04:52 montelukast [From Singulair] AdvReac "MAKES ME Verified 10/07/22 04:52 MENTALLY UNSTABLE" morphine AdvReac Abdominal Verified 10/07/22 04:52 Pain mushroom AdvReac Abdominal Verified 10/07/22 04:52 Pain NSAIDS (Non-Steroidal AdvReac Unknown Verified 10/07/22 04:52 Anti-Inflamma oats AdvReac Abdominal Verified 10/07/22 04:52 Pain Znhyuzw-GCX-UxQ Reductase AdvReac joint Verified 10/07/22 04:52 Inhibitor inflammation [Fupjzhf-Mak-Bim Reductase Inhibitor] Sulfa (Sulfonamide AdvReac Abdominal Verified 10/07/22 04:52 Antibiotics) Pain topiramate [From Topamax] AdvReac Edwards Verified 10/07/22 04:52 tree nut [Nut] AdvReac Abdominal Verified 10/07/22 04:52 Pain dust Allergy Dyspnea Uncoded 10/07/22 04:52 urin D Allergy Rash/Hives Uncoded 10/07/22 04:52 Review of Systems ROS Statement: Those systems with pertinent positive or pertinent negative responses have been documented in the HPI. ROS Other: All systems not noted in ROS Statement are negative. Past Medical History Past Medical History: Chest Pain / Angina, Diabetes Mellitus, GERD/Reflux, Hypertension, Osteoarthritis (OA), Sleep Apnea/CPAP/BIPAP Additional Past Medical History / Comment(s): obesity, BOVINE AORTIC ARCH, POSSIBLE MS-ONGOING TESTS, BILAT CTR, ENLARGED LYMPH NODES IN THROAT, HERNIAS, USES C-PAP, PREDIABETIC. pelvic floor dysfunction. History of Any Multi-Drug Resistant Organisms: MRSA Date of last positivie culture/infection: 2005 MDRO Source:: unknown Past Surgical History: Bariatric Surgery, Cholecystectomy, Hysterectomy Additional Past Surgical History / Comment(s): gastric sleeve, eye surgery , COLONOSCOPY/EGD, THROAT SX 07/2020, LYMPH NODE AND SALIVARY GLAND REMOVED Past Anesthesia/Blood Transfusion Reactions: No Reported Reaction Past Psychological History: ADD/ADHD, Anxiety, Depression Smoking Status: Never smoker Past Alcohol Use History: None Reported Past Drug Use History: None Reported - Past Family History Mother Family Medical History: Thyroid Disorder General Exam Limitations: no limitations General appearance: alert, in no apparent distress Head exam: Present: atraumatic, normocephalic, normal inspection Skin exam: Present: warm, dry, other (Rash noted to the left lower abdominal skin fold consistent with intertrigo. No purulent drainage.) Course Vital Signs 10/07/22 10/07/22 04:49 06:42 Temperature 98 F Pulse Rate 71 68 Respiratory 18 18 Rate Blood Pressure 137/91 124/79 O2 Sat by Pulse 98 99 Oximetry Medical Decision Making - Medical Decision Making Was pt. sent in by a medical professional or institution (KALYAN Vazquez, AUDIOMETRIST, urgent care, hospital, or assisted...) When possible be specific @ -No Did you speak to anyone other than the patient for history (EMS, parent, family, police, friend...)? What history was obtained from this source @ -No Did you review nursing and triage notes (agree or disagree)? Why? @ -I reviewed and agree with nursing and triage notes Were old charts reviewed (outside hosp., previous admission, EMS record, old EKG, old radiological studies, urgent care reports/EKG's, assisted records)? Report findings @ -No old charts were reviewed Differential Diagnosis (chest pain, altered mental status, abdominal pain women, abdominal pain men, vaginal bleeding, weakness, fever, dyspnea, syncope, headache, dizziness, GI bleed, back pain, seizure, CVA, palpatations, mental health, musculoskeletal)? @ -Contact dermatitis, ringworm, intertrigo, staph infection EKG interpreted by me (3pts min.). @ -Not done X-rays interpreted by me (1pt min.). @ -None done CT interpreted by me (1pt min.). @ -None done U/S interpreted by me (1pt. min.). @ -None done What testing was considered but not performed or refused? (CT, X-rays, U/S, labs)? Why? @ -None What meds were considered but not given or refused? Why? @ -None Did you discuss the management of the patient with other professionals (professionals i.e. KALYAN Vazquez, AUDIOMETRIST, lab, RT, psych nurse, high school social studies teacher, consulting solution manager, teacher, correction officer city or county jail, pillowcase turner)? Give summary @ -No Was smoking cessation discussed for >3mins.? @ -No Was critical care preformed (if so, how long)? @ -No Were there social determinants of health that impacted care today? How? (Homelessness, low income, unemployed, alcoholism, drug addiction, transportation, low edu. Level, literacy, decrease access to med. care, nursing home, rehab)? @ -No Was there de-escalation of care discussed even if they declined (Discuss DNR or withdrawal of care, Hospice)? DNR status @ -No What co-morbidities impacted this encounter? (DM, HTN, Smoking, COPD, CAD, Cancer, CVA, ARF, Chemo, Hep., AIDS, mental health diagnosis, sleep apnea, morbid obesity)? @ -Obesity Was patient admitted / discharged? Hospital course, mention meds given and route, prescriptions, significant lab abnormalities, going to OR and other pertinent info. @ -Arrival patient was placed into room 23. Thorough history and physical exam was performed. Rash is consistent with intertrigo. She will be prescribed nystatin powder. Instructed to use it twice a day. Keep area dry. Follow-up with her primary care doctor and return for any new or worsening symptoms. Patient was agreeable to this was discharged in stable condition Undiagnosed new problem with uncertain prognosis? @ -No Drug Therapy requiring intensive monitoring for toxicity (Heparin, Nitro, Insulin, Cardizem)? @ -No Were any procedures done? @ -No Diagnosis/symptom? @ -Acute intertrigo left groin Acute, or Chronic, or Acute on Chronic? @ -Acute Uncomplicated (without systemic symptoms) or Complicated (systemic symptoms)? @ -Uncomplicated Side effects of treatment? @ -No Exacerbation, Progression, or Severe Exacerbation? @ -No Poses a threat to life or bodily function? How? (Chest pain, [place], [place], pneumonia, PE, COPD, DKA, ARF, appy, cholecystitis, CVA, Diverticulitis, Homicidal, Suicidal, threat to staff... and all critical care pts) @ -No Disposition Clinical Impression: Intertrigo Disposition: HOME SELF-CARE Condition: Stable Instructions (If sedation given, give patient instructions): Skin Yeast Infection (ED) Additional Instructions: Please use the cream twice daily. Keep the area dry. Follow-up with your doctor and return for any new or worsening symptoms Prescriptions: Nystatin 100,000 Unit/gm Powd [Mycostatin Powder] 1 applic TOPICAL BID #30 gram Is patient prescribed a controlled substance at d/c from ED?: No Referrals: Ramana Lanza DO [Primary Care Provider] - 1-2 days Time of Disposition: 05:50
[2022-10-07 07:16] VITALS: BP 124/79; PULSE 68
== END 2022-10-07 06:42 | disposition home or self-care (01) ==
LOC: EC 04:47
DX: L30.4 Erythema intertrigo (principal); E11.9 Type 2 diabetes mellitus without complications; I10 Essential (primary) hypertension; K21.9 Gastro-esophageal reflux disease without esophagitis; M19.90 Unspecified osteoarthritis, unspecified site; F32.A Depression, unspecified; F41.9 Anxiety disorder, unspecified; F90.9 Attention-deficit hyperactivity disorder, unspecified type; E66.9 Obesity, unspecified; Z68.41 Body mass index [BMI] 40.0-44.9, adult; Z79.51 Long term (current) use of inhaled steroids; Z79.82 Long term (current) use of aspirin; Z79.84 Long term (current) use of oral hypoglycemic drugs; Z79.899 Other long term (current) drug therapy; Z88.0 Allergy status to penicillin; Z88.1 Allergy status to other antibiotic agents; Z88.2 Allergy status to sulfonamides; Z88.5 Allergy status to narcotic agent; Z88.6 Allergy status to analgesic agent; Z88.8 Allergy status to other drugs, medicaments and biological substances; Z91.018 Allergy to other foods; Z91.09 Other allergy status, other than to drugs and biological substances
CPT/HCPCS: 99282

== ENCOUNTER 2023-01-14 23:34 | Emergency (ER) | payer BC ==
[2023-01-15 00:07] VITALS: TEMP 98.5
--- NOTE | 2023-01-15 01:31 | XR ---
EXAM: XR Chest, 2 Views CLINICAL HISTORY: ITS.REASON XR Reason: cough TECHNIQUE: Frontal and lateral views of the chest. COMPARISON: No relevant prior studies available. FINDINGS: Lungs: Unremarkable. No consolidation. Pleural space: Unremarkable. No pneumothorax. Heart: Unremarkable. No cardiomegaly. Mediastinum: Unremarkable. Bones/joints: Unremarkable. IMPRESSION: Normal chest x-rays.
[2023-01-15 01:36] VITALS: RESP 18
--- NOTE | 2023-01-15 02:25 | ED ---
URI HPI - General Chief Complaint: Upper Respiratory Infection Stated Complaint: Cough, Congestion Time Seen by Provider: 01/14/23 23:49 Source: patient Mode of arrival: ambulatory Limitations: no limitations - History of Present Illness Initial Comments: 42-year-old female presenting with chief complaint of cough and congestion. Patient also admits to intermittent fever and sore throat. She states symptoms started 3 days ago. Patient also states that she has had recurring symptoms and follows with Dr. Conklin for "swollen tonsils". She recently completed a course of amoxicillin and is currently on clindamycin. She also admits to urinary urgency and frequency. No abdominal pain, nausea, vomiting, chest pain, shortness of breath, flank pain, dysuria, hematuria. - Related Data Home Medications Medication Instructions Recorded Confirmed Aspirin [Adult Low Dose Aspirin EC] 81 mg PO HS 07/30/20 05/25/21 Atomoxetine HCl [Strattera] 60 mg PO DAILY 07/30/20 05/25/21 Isosorbide Mononitrate [Imdur] 120 mg PO BID 07/30/20 05/25/21 Lansoprazole [Prevacid] 30 mg PO BID 07/30/20 05/25/21 buPROPion XL [Wellbutrin XL] 150 mg PO DAILY 07/30/20 05/25/21 guanFACINE [Tenex] 2 mg PO 07/30/20 05/25/21 Desvenlafaxine Succinate [Pristiq 25 mg PO DAILY 12/08/20 05/25/21 ER] Ergocalciferol [Vitamin D2 (1250 1,250 mcg PO TH 01/12/21 05/25/21 Mcg = 03742 Iu)] Albuterol Nebulized [Ventolin 2.5 mg INHALATION RT-QID PRN 05/25/21 05/25/21 Nebulized] Albuterol Sulfate [Proair Hfa] 2 puff INHALATION RT-QID PRN 05/25/21 05/25/21 Fluticasone Propionate [Flovent 2 puff INHALATION RT-BID 05/25/21 05/25/21 Hfa 44 mcg] carvediloL [Coreg] 25 mg PO BID 05/25/21 05/25/21 hydrOXYzine pamoate [Vistaril] 100 mg PO HS 05/25/21 05/25/21 lamoTRIgine [LaMICtal] 25 mg PO BID 05/25/21 05/25/21 metFORMIN HCL 500 mg PO AC-BID 05/25/21 05/25/21 Previous Rx's Medication Instructions Recorded Lidocaine 5% Patch [Lidoderm 5% 1 patch TOPICAL DAILY PRN 7 Days 05/25/21 Patch] #7 patch Fexofenadine HCl [Ileana Allergy] 180 mg PO HS 30 Days #30 tab 09/28/21 Ondansetron [Zofran] 4 mg PO Q8HR PRN #9 tab 08/04/22 Nystatin 100,000 Unit/gm Powd 1 applic TOPICAL BID #30 gram 10/07/22 [Mycostatin Powder] Allergies Allergy/AdvReac Type Severity Reaction Status Date / Time budesonide [From Symbicort] Allergy worse Verified 01/14/23 23:44 allergy symptoms formoterol [From Symbicort] Allergy worse Verified 01/14/23 23:44 allergy symptoms magnesium sulfate Allergy Rash/Hives Verified 01/14/23 23:44 [From Epsom Salt] methenamine [From Uribel] Allergy Rash/Hives Verified 01/14/23 23:44 methylene blue [From Uribel] Allergy Rash/Hives Verified 01/14/23 23:44 mold Allergy Dyspnea Verified 01/14/23 23:44 oxcarbazepine Allergy Rash/Hives Verified 01/14/23 23:44 [From Trileptal] salicylates [From Uribel] Allergy Rash/Hives Verified 01/14/23 23:44 sodium phosphate Allergy Rash/Hives Verified 01/14/23 23:44 [From Uribel] amitriptyline [From Elavil] AdvReac Edwards Verified 01/14/23 23:44 amoxicillin [From Augmentin] AdvReac Nausea & Verified 01/14/23 23:44 Vomiting clavulanic acid AdvReac Nausea & Verified 01/14/23 23:44 [From Augmentin] Vomiting dicyclomine [From Bentyl] AdvReac Rash/Hives Verified 01/14/23 23:44 levocetirizine [From Xyzal] AdvReac INSOMNIA Verified 01/14/23 23:44 montelukast [From Singulair] AdvReac "MAKES ME Verified 01/14/23 23:44 MENTALLY UNSTABLE" morphine AdvReac Abdominal Verified 01/14/23 23:44 Pain mushroom AdvReac Abdominal Verified 01/14/23 23:44 Pain NSAIDS (Non-Steroidal AdvReac Unknown Verified 01/14/23 23:44 Anti-Inflamma oats AdvReac Abdominal Verified 01/14/23 23:44 Pain Yhdjzjc-OZR-RsE Reductase AdvReac joint Verified 01/14/23 23:44 Inhibitor inflammation [Yiffprd-Ypi-Apx Reductase Inhibitor] Sulfa (Sulfonamide AdvReac Abdominal Verified 01/14/23 23:44 Antibiotics) Pain topiramate [From Topamax] AdvReac Edwards Verified 01/14/23 23:44 tree nut [Nut] AdvReac Abdominal Verified 01/14/23 23:44 Pain dust Allergy Dyspnea Uncoded 01/14/23 23:44 urin D Allergy Rash/Hives Uncoded 01/14/23 23:44 Review of Systems ROS Statement: Those systems with pertinent positive or pertinent negative responses have been documented in the HPI. ROS Other: All systems not noted in ROS Statement are negative. Past Medical History Past Medical History: Chest Pain / Angina, Diabetes Mellitus, Fibromyalgia, GERD/Reflux, Hypertension, Osteoarthritis (OA), Sleep Apnea/CPAP/BIPAP Additional Past Medical History / Comment(s): obesity, BOVINE AORTIC ARCH, POSSIBLE MS-ONGOING TESTS, BILAT CTR, ENLARGED LYMPH NODES IN THROAT, HERNIAS, USES C-PAP, PREDIABETIC. pelvic floor dysfunction. History of Any Multi-Drug Resistant Organisms: MRSA Date of last positivie culture/infection: 2005 MDRO Source:: unknown Past Surgical History: Bariatric Surgery, Cholecystectomy, Hysterectomy Additional Past Surgical History / Comment(s): gastric sleeve, eye surgery , COLONOSCOPY/EGD, THROAT SX 07/2020, LYMPH NODE AND SALIVARY GLAND REMOVED Past Anesthesia/Blood Transfusion Reactions: No Reported Reaction Past Psychological History: ADD/ADHD, Anxiety, Depression Smoking Status: Never smoker Past Alcohol Use History: None Reported Past Drug Use History: None Reported - Past Family History Mother Family Medical History: Thyroid Disorder General Exam Limitations: no limitations General appearance: alert, in no apparent distress Head exam: Present: atraumatic, normocephalic, normal inspection Eye exam: Present: normal appearance, EOMI ENT exam: Present: normal exam, normal oropharynx, mucous membranes moist, TM's normal bilaterally Neck exam: Present: normal inspection, full ROM, lymphadenopathy Respiratory exam: Present: normal lung sounds bilaterally. Absent: respiratory distress, wheezes, rales, rhonchi, stridor Cardiovascular Exam: Present: regular rate, normal rhythm, normal heart sounds. Absent: systolic murmur, diastolic murmur, rubs, gallop, clicks Neurological exam: Present: alert, oriented X3 Psychiatric exam: Present: normal affect, normal mood Skin exam: Present: warm, dry, intact, normal color. Absent: rash Course Vital Signs 01/14/23 01/15/23 01/15/23 23:45 01:29 02:34 Temperature 98.5 F Pulse Rate 79 68 70 Respiratory 16 18 18 Rate Blood Pressure 122/82 96/60 135/60 O2 Sat by Pulse 96 97 97 Oximetry Medical Decision Making - Medical Decision Making Was pt. sent in by a medical professional or institution (, PA, PURIFICATION OPERATOR, urgent care, hospital, or shelter...) When possible be specific @ -[No] Did you speak to anyone other than the patient for history (EMS, parent, family, police, friend...)? What history was obtained from this source @ -[No] Did you review nursing and triage notes (agree or disagree)? Why? @ -[I reviewed and agree with nursing and triage notes] Were old charts reviewed (outside hosp., previous admission, EMS record, old EKG, old radiological studies, urgent care reports/EKG's, shelter records)? Report findings @ -[No old charts were reviewed] Differential Diagnosis (chest pain, altered mental status, abdominal pain women, abdominal pain men, vaginal bleeding, weakness, fever, dyspnea, syncope, headache, dizziness, GI bleed, back pain, seizure, CVA, palpatations, mental health, musculoskeletal)? @ -Differential includes URI, bronchitis, pneumonia, this is not an all inclusive list EKG interpreted by me (3pts min.). @ -[As above] X-rays interpreted by me (1pt min.). @ -Chest x-ray shows no acute process CT interpreted by me (1pt min.). @ -[None done] U/S interpreted by me (1pt. min.). @ -[None done] What testing was considered but not performed or refused? (CT, X-rays, U/S, labs)? Why? @ -[None] What meds were considered but not given or refused? Why? @ -[None] Did you discuss the management of the patient with other professionals (professionals i.e. , PA, PURIFICATION OPERATOR, lab, RT, psych nurse, addiction social worker, circle cutting saw operator, teacher, ship's electronic warfare officer, case planner)? Give summary @ -[No] Was smoking cessation discussed for >3mins.? @ -[No] Was critical care preformed (if so, how long)? @ -[No] Were there social determinants of health that impacted care today? How? (Homelessness, low income, unemployed, alcoholism, drug addiction, transportation, low edu. Level, literacy, decrease access to med. care, usp, rehab)? @ -[No] Was there de-escalation of care discussed even if they declined (Discuss DNR or withdrawal of care, Hospice)? DNR status @ -[No] What co-morbidities impacted this encounter? (DM, HTN, Smoking, COPD, CAD, Cancer, CVA, ARF, Chemo, Hep., AIDS, mental health diagnosis, sleep apnea, morbid obesity)? @ -[None] Was patient admitted / discharged? Hospital course, mention meds given and route, prescriptions, significant lab abnormalities, going to OR and other pertinent info. @ -42-year-old female presenting with chief complaint of cough congestion sore throat and intermittent fevers ongoing for 3 days. Physical exam is conducted. Patient is negative for Covid, influenza, RSV, group A strep. Negative chest x-ray. Patient also admits to urinary urgency and frequency. Urine shows no bleeding or infectious process. Patient is educated on today's findings and supportive management at home. She is instructed to continue her current course of clindamycin previously prescribed to her by Dr. Conklin. Follow-up with PCP. Report back to ER with any new or worsening symptoms. Discussed return parameters and answered all questions. Patient conveyed verbal understanding and agreed to the plan. I discussed this case in detail with my attending Dr. Mcknight Undiagnosed new problem with uncertain prognosis? @ -[No] Drug Therapy requiring intensive monitoring for toxicity (Heparin, Nitro, Insulin, Cardizem)? @ -[No] Were any procedures done? @ -[No] Diagnosis/symptom? @ -URI Acute, or Chronic, or Acute on Chronic? @ -acute Uncomplicated (without systemic symptoms) or Complicated (systemic symptoms)? @ -Uncomplicated Side effects of treatment? @ -[No] Exacerbation, Progression, or Severe Exacerbation? @ -[No] Poses a threat to life or bodily function? How? (Chest pain, [place], [place], pneumonia, PE, COPD, DKA, ARF, appy, cholecystitis, CVA, Diverticulitis, Homicidal, Suicidal, threat to staff... and all critical care pts) @ -[No] - Lab Data Lab Results 01/15/23 01/15/23 01/15/23 Range/Units 00:06 00:06 01:28 Urine Color Colorless Urine Appearance Clear (Clear) Urine pH 5.5 (5.0-8.0) Ur Specific [place] 1.007 (1.001-1.035) Urine Protein Negative (Negative) Urine Glucose (UA) Negative (Negative) Urine Ketones Negative (Negative) Urine Blood Negative (Negative) Urine Nitrite Negative (Negative) Urine Bilirubin Negative (Negative) Urine Urobilinogen <2.0 (<2.0) mg/dL Ur Leukocyte Esterase Negative (Negative) Influenza Type A (PCR) Not Detected (Not Detectd) Influenza Type B (PCR) Not Detected (Not Detectd) RSV (PCR) Not Detected (Not Detectd) SARS-CoV-2 (PCR) Not Detected (Not Detectd) Group A Strep (PCR) NOT DETECTED (Not Detectd) Disposition Clinical Impression: Acute upper respiratory infection Disposition: HOME SELF-CARE Condition: Good Instructions (If sedation given, give patient instructions): Upper Respiratory Infection (ED) Additional Instructions: Follow-up with PCP and ENT. Report back to ER with any new or worsening symptoms. Continue taking your current medications. Is patient prescribed a controlled substance at d/c from ED?: No Referrals: Ramana Lanza DO [Primary Care Provider] - 1-2 days Erickson Pacheco MD [STAFF PHYSICIAN] - 1-2 days Time of Disposition: 02:45
[2023-01-15 02:40] LABS: Appearance,Urine Clear (Clear); Bilirubin,Urine Negative (Negative); Blood,Urine Negative (Negative); Color,Urine Colorless; Glucose,Urine (UA) Negative (Negative); Ketones,Urine Negative (Negative); Leukocyte Esterase,Urine Negative (Negative); Nitrite,Urine Negative (Negative); PH, Urine 5.5 (5.0-8.0); Protein,Urine Negative (Negative); Specific Gravity,Urine 1.007 (1.001-1.035); Urobilinogen,Urine <2.0 mg/dL (<2.0)
[2023-01-15 02:46] VITALS: BP 135/60; PULSE 70
== END 2023-01-15 02:49 | disposition home or self-care (01) ==
LOC: EC 23:34
DX: J06.9 Acute upper respiratory infection, unspecified (principal); E11.9 Type 2 diabetes mellitus without complications; I10 Essential (primary) hypertension; M19.90 Unspecified osteoarthritis, unspecified site; G47.30 Sleep apnea, unspecified; F90.9 Attention-deficit hyperactivity disorder, unspecified type; F41.9 Anxiety disorder, unspecified; E66.9 Obesity, unspecified; F32.A Depression, unspecified; Z79.84 Long term (current) use of oral hypoglycemic drugs; Z79.899 Other long term (current) drug therapy; Z79.82 Long term (current) use of aspirin; Z79.1 Long term (current) use of non-steroidal anti-inflammatories (NSAID); Z88.6 Allergy status to analgesic agent; Z88.0 Allergy status to penicillin; Z88.8 Allergy status to other drugs, medicaments and biological substances; Z91.018 Allergy to other foods; Z88.2 Allergy status to sulfonamides; Z20.822 Contact with and (suspected) exposure to COVID-19; Z88.1 Allergy status to other antibiotic agents; Z88.5 Allergy status to narcotic agent; Z90.49 Acquired absence of other specified parts of digestive tract
CPT/HCPCS: 71046; 81003; 87636; 87651; 99283

== ENCOUNTER 2024-03-02 02:17 | Emergency (ER) | payer BC ==
[2024-03-02 02:20] VITALS: BP 129/87; PULSE 80; RESP 18; TEMP 98.2
--- NOTE | 2024-03-02 02:54 | ED ---
Skin/Abscess/FB HPI - General Chief complaint: Skin/Abscess/Foreign Body Stated complaint: Rash on Arms Time Seen by Provider: 03/02/24 02:25 Source: patient Mode of arrival: ambulatory Limitations: no limitations - History of Present Illness Initial comments: 43-year-old female coming with chief complaint of rash. Patient has had a rash on the bilateral arms since September. It is quite pruritic. States that she could not sleep tonight because of the itchiness. She follows with local reproduction artist Dr. Paz recently had a biopsy performed, states that they are currently trying to get her on specialized medication for eczema, but there are insurance issues. She already took Benadryl at home. States that she does not like taking steroids because they make her "nutty". No chest pain difficulty breathing, difficulty swallowing, abdominal pain, vomiting, swelling of the lips or face. - Related Data Home Medications Medication Instructions Recorded Confirmed Aspirin [Adult Low Dose Aspirin EC] 81 mg PO HS 07/30/20 05/25/21 Atomoxetine HCl [Strattera] 60 mg PO DAILY 07/30/20 05/25/21 Isosorbide Mononitrate [Imdur] 120 mg PO BID 07/30/20 05/25/21 Lansoprazole [Prevacid] 30 mg PO BID 07/30/20 05/25/21 buPROPion XL [Wellbutrin XL] 150 mg PO DAILY 07/30/20 05/25/21 guanFACINE [Tenex] 2 mg PO HS 07/30/20 05/25/21 Desvenlafaxine Succinate [Pristiq 25 mg PO DAILY 12/08/20 05/25/21 ER] Ergocalciferol [Vitamin D2 (1250 1,250 mcg PO TH 01/12/21 05/25/21 Mcg = 50737 Iu)] Albuterol Nebulized [Ventolin 2.5 mg INHALATION RT-QID PRN 05/25/21 05/25/21 Nebulized] Albuterol Sulfate [Proair Hfa] 2 puff INHALATION RT-QID PRN 05/25/21 05/25/21 Fluticasone Propionate [Flovent 2 puff INHALATION RT-BID 05/25/21 05/25/21 Hfa 44 mcg] carvediloL [Coreg] 25 mg PO BID 05/25/21 05/25/21 hydrOXYzine pamoate [Vistaril] 100 mg PO HS 05/25/21 05/25/21 lamoTRIgine [LaMICtal] 25 mg PO BID 05/25/21 05/25/21 metFORMIN HCL 500 mg PO AC-BID 05/25/21 05/25/21 Previous Rx's Medication Instructions Recorded Lidocaine 5% Patch [Lidoderm 5% 1 patch TOPICAL DAILY PRN 7 Days 05/25/21 Patch] #7 patch Fexofenadine HCl [Ileana Allergy] 180 mg PO HS 30 Days #30 tab 09/28/21 Ondansetron [Zofran] 4 mg PO Q8HR PRN #9 tab 08/04/22 Nystatin 100,000 Unit/gm Powd 1 applic TOPICAL BID #30 gram 10/07/22 [Mycostatin Powder] Allergies Allergy/AdvReac Type Severity Reaction Status Date / Time budesonide [From Symbicort] Allergy worse Verified 03/02/24 02:20 allergy symptoms formoterol [From Symbicort] Allergy worse Verified 03/02/24 02:20 allergy symptoms magnesium sulfate Allergy Rash/Hives Verified 03/02/24 02:20 [From Epsom Salt] methenamine [From Uribel] Allergy Rash/Hives Verified 03/02/24 02:20 methylene blue [From Uribel] Allergy Rash/Hives Verified 03/02/24 02:20 mold Allergy Dyspnea Verified 03/02/24 02:20 oxcarbazepine Allergy Rash/Hives Verified 03/02/24 02:20 [From Trileptal] salicylates [From Uribel] Allergy Rash/Hives Verified 03/02/24 02:20 sodium phosphate Allergy Rash/Hives Verified 03/02/24 02:20 [From Uribel] amitriptyline [From Elavil] AdvReac Edwards Verified 03/02/24 02:20 amoxicillin [From Augmentin] AdvReac Nausea & Verified 03/02/24 02:20 Vomiting clavulanic acid AdvReac Nausea & Verified 03/02/24 02:20 [From Augmentin] Vomiting dicyclomine [From Bentyl] AdvReac Rash/Hives Verified 03/02/24 02:20 levocetirizine [From Xyzal] AdvReac INSOMNIA Verified 03/02/24 02:20 montelukast [From Singulair] AdvReac "MAKES ME Verified 03/02/24 02:20 MENTALLY UNSTABLE" morphine AdvReac Abdominal Verified 03/02/24 02:20 Pain mushroom AdvReac Abdominal Verified 03/02/24 02:20 Pain NSAIDS (Non-Steroidal AdvReac Unknown Verified 03/02/24 02:20 Anti-Inflamma oats AdvReac Abdominal Verified 03/02/24 02:20 Pain Spaxkeq-GVS-ZoQ Reductase AdvReac joint Verified 03/02/24 02:20 Inhibitor inflammation [Bsjosep-Rsv-Cof Reductase Inhibitor] Sulfa (Sulfonamide AdvReac Abdominal Verified 03/02/24 02:20 Antibiotics) Pain topiramate [From Topamax] AdvReac Edwards Verified 03/02/24 02:20 tree nut [Nut] AdvReac Abdominal Verified 03/02/24 02:20 Pain dust Allergy Dyspnea Uncoded 03/02/24 02:20 urin D Allergy Rash/Hives Uncoded 03/02/24 02:20 Review of Systems ROS Statement: Those systems with pertinent positive or pertinent negative responses have been documented in the HPI. ROS Other: All systems not noted in ROS Statement are negative. Past Medical History Past Medical History: Chest Pain / Angina, Diabetes Mellitus, Fibromyalgia, GERD/Reflux, Hypertension, Osteoarthritis (OA), Sleep Apnea/CPAP/BIPAP Additional Past Medical History / Comment(s): obesity, BOVINE AORTIC ARCH, POSSIBLE MS-ONGOING TESTS, BILAT CTR, ENLARGED LYMPH NODES IN THROAT, HERNIAS, USES C-PAP, PREDIABETIC. pelvic floor dysfunction. History of Any Multi-Drug Resistant Organisms: MRSA Date of last positivie culture/infection: 2005 MDRO Source:: unknown Past Surgical History: Bariatric Surgery, Cholecystectomy, Hysterectomy Additional Past Surgical History / Comment(s): gastric sleeve, eye surgery , COLONOSCOPY/EGD, THROAT SX 07/2020, LYMPH NODE AND SALIVARY GLAND REMOVED Past Anesthesia/Blood Transfusion Reactions: No Reported Reaction Past Psychological History: ADD/ADHD, Anxiety, Depression Smoking Status: Never smoker Past Alcohol Use History: None Reported Past Drug Use History: None Reported - Past Family History Mother Family Medical History: Thyroid Disorder General Exam Limitations: no limitations General appearance: alert, anxious Head exam: Present: atraumatic, normocephalic, normal inspection Eye exam: Present: normal appearance, EOMI ENT exam: Present: normal exam Neck exam: Present: normal inspection. Absent: meningismus Respiratory exam: Absent: respiratory distress Cardiovascular Exam: Present: regular rate Neurological exam: Present: alert, oriented X3 Psychiatric exam: Present: normal affect, normal mood Skin exam: Present: rash Course Vital Signs 03/02/24 02:17 Temperature 98.2 F Pulse Rate 80 Respiratory 18 Rate Blood Pressure 129/87 O2 Sat by Pulse 99 Oximetry Medical Decision Making - Medical Decision Making Was pt. sent in by a medical professional or institution (, [facility], [employer] WORK[employer], urgent care, hospital, or penitentiary...) When possible be specific @ -No Did you speak to anyone other than the patient for history (EMS, parent, family, police, friend...)? What history was obtained from this source @ -No Did you review nursing and triage notes (agree or disagree)? Why? @ -I reviewed and agree with nursing and triage notes Were old charts reviewed (outside hosp., previous admission, EMS record, old EKG, old radiological studies, urgent care reports/EKG's, penitentiary records)? Report findings @ -No old charts were reviewed Differential Diagnosis (chest pain, altered mental status, abdominal pain women, abdominal pain men, vaginal bleeding, weakness, fever, dyspnea, syncope, headache, dizziness, GI bleed, back pain, seizure, CVA, palpatations, mental health, musculoskeletal)? @ -Differential includes allergic reaction, eczema, psoriasis, this is not an all-inclusive list EKG interpreted by me (3pts min.). @ -As above X-rays interpreted by me (1pt min.). @ -None done CT interpreted by me (1pt min.). @ -None done U/S interpreted by me (1pt. min.). @ -None done What testing was considered but not performed or refused? (CT, X-rays, U/S, labs)? Why? @ -None What meds were considered but not given or refused? Why? @ -None Did you discuss the management of the patient with other professionals (professionals i.e. KALYAN Vazquez, [employer]AG PRODUCTION WORKER, lab, RT, psych nurse, social work program coordinator, outsole leveler, teacher, customs patrol officer, continuous pillowcase cutter)? Give summary @ -No Was smoking cessation discussed for >3mins.? @ -No Was critical care preformed (if so, how long)? @ -No Were there social determinants of health that impacted care today? How? (Homelessness, low income, unemployed, alcoholism, drug addiction, transportation, low edu. Level, literacy, decrease access to med. care, detention, rehab)? @ -No Was there de-escalation of care discussed even if they declined (Discuss DNR or withdrawal of care, Hospice)? DNR status @ -No What co-morbidities impacted this encounter? (DM, HTN, Smoking, COPD, CAD, Cancer, CVA, ARF, Chemo, Hep., AIDS, mental health diagnosis, sleep apnea, morbid obesity)? @ -None Was patient admitted / discharged? Hospital course, mention meds given and route, prescriptions, significant lab abnormalities, going to OR and other pertinent info. @ -43-year-old female presenting with chief complaint of rash. Rash has been present since September. She is having difficulty sleeping tonight because of the itching. Currently follows with dermatology. There are hives present on the bilateral arms. Patient already took Benadryl tonight. She does not want any systemic steroids. Provided with topical steroid. Follow-up with reproduction artist. Follow-up with PCP. Report back to ER with any new or worsening symptoms. Discussed return parameters and answered all questions. Patient conveyed verbal understanding and agreed to the plan. I discussed this case in detail with my attending Dr. Chun Undiagnosed new problem with uncertain prognosis? @ -No Drug Therapy requiring intensive monitoring for toxicity (Heparin, Nitro, Insulin, Cardizem)? @ -No Were any procedures done? @ -No Diagnosis/symptom? @ -Rash Acute, or Chronic, or Acute on Chronic? @ -Acute Uncomplicated (without systemic symptoms) or Complicated (systemic symptoms)? @ -Uncomplicated Side effects of treatment? @ -No Exacerbation, Progression, or Severe Exacerbation? @ -No Poses a threat to life or bodily function? How? (Chest pain, [place], [place], pneumonia, PE, COPD, DKA, ARF, appy, cholecystitis, CVA, Diverticulitis, Homicidal, Suicidal, threat to staff... and all critical care pts) @ -Unlikely Disposition Clinical Impression: Rash Disposition: HOME SELF-CARE Condition: Good Instructions (If sedation given, give patient instructions): Acute Rash (ED) Additional Instructions: Follow-up with your reproduction artist. Report back to ER with any new or worsening symptoms. Is patient prescribed a controlled substance at d/c from ED?: No Referrals: Ramana Lanza DO [Primary Care Provider] - 1-2 days Time of Disposition: 02:53
[2024-03-02] MEDS: HYDROCORTISONE 1% OINT 28.35 GM TUBE TOPICAL STA (03:29)
== END 2024-03-02 03:30 | disposition home or self-care (01) ==
LOC: EC 02:17
DX: R21 Rash and other nonspecific skin eruption (principal); Z88.0 Allergy status to penicillin; Z88.2 Allergy status to sulfonamides; Z88.5 Allergy status to narcotic agent; Z88.6 Allergy status to analgesic agent; Z88.8 Allergy status to other drugs, medicaments and biological substances; Z88.1 Allergy status to other antibiotic agents; Z91.018 Allergy to other foods
CPT/HCPCS: 99282

== ENCOUNTER 2024-08-09 11:07 | Emergency (ER) | payer BC ==
[2024-08-09 11:10] VITALS: RESP 18
--- NOTE | 2024-08-09 11:35 | ED ---
General Adult HPI - General Chief complaint: Urogenital Stated complaint: urogential Time Seen by Provider: 08/09/24 11:19 Source: patient, RN notes reviewed Mode of arrival: ambulatory Limitations: no limitations - History of Present Illness Initial comments: This is a 44-year-old female with history including chest pain, DM, hypertension, cholecystectomy (2007), MARRERO, hysterectomy and gastric sleeve presenting for abdominal pain and hematuria x 1 day. Patient states pain is mostly in the upper and left upper regions, described as constant and dull/aching (6/10). Patient states pain has been occurring for the last several days, usually worse in the morning that lessens throughout the day. Patient endorses associated decreased urinary output, nausea, constipation, neva colored stool and pain radiating to left flank. Endorses history of kidney stones. Patient also mentions transient symptoms of dizziness, sweatiness and presync ope, also feeling "loopy" on occasion. Patient denies fever, chills, chest pain, dyspnea, vomiting, diarrhea, hematochezia, melena. Onset/Timin -: days(s) - Related Data Home Medications Medication Instructions Recorded Confirmed Aspirin [Adult Low Dose Aspirin EC] 81 mg PO HS 07/30/20 05/25/21 Atomoxetine HCl [Strattera] 60 mg PO DAILY 07/30/20 05/25/21 Isosorbide Mononitrate [Imdur] 120 mg PO BID 07/30/20 05/25/21 Lansoprazole [Prevacid] 30 mg PO BID 07/30/20 05/25/21 buPROPion XL [Wellbutrin XL] 150 mg PO DAILY 07/30/20 05/25/21 guanFACINE [Tenex] 2 mg PO HS 07/30/20 05/25/21 Desvenlafaxine Succinate [Pristiq 25 mg PO DAILY 12/08/20 05/25/21 ER] Ergocalciferol [Vitamin D2 (1250 1,250 mcg PO TH 01/12/21 05/25/21 Mcg = 62711 Iu)] Albuterol Nebulized [Ventolin 2.5 mg INHALATION RT-QID PRN 05/25/21 05/25/21 Nebulized] Albuterol Sulfate [Proair Hfa] 2 puff INHALATION RT-QID PRN 05/25/21 05/25/21 Fluticasone Propionate [Flovent 2 puff INHALATION RT-BID 05/25/21 05/25/21 Hfa 44 mcg] carvediloL [Coreg] 25 mg PO BID 05/25/21 05/25/21 hydrOXYzine pamoate [Vistaril] 100 mg PO HS 05/25/21 05/25/21 lamoTRIgine [LaMICtal] 25 mg PO BID 05/25/21 05/25/21 metFORMIN HCL 500 mg PO AC-BID 05/25/21 05/25/21 Previous Rx's Medication Instructions Recorded Lidocaine 5% Patch [Lidoderm 5% 1 patch TOPICAL DAILY PRN 7 Days 05/25/21 Patch] #7 patch Fexofenadine HCl [Ileana Allergy] 180 mg PO HS 30 Days #30 tab 09/28/21 Ondansetron [Zofran] 4 mg PO Q8HR PRN #9 tab 08/04/22 Nystatin 100,000 Unit/gm Powd 1 applic TOPICAL BID #30 gram 10/07/22 [Mycostatin Powder] Meloxicam [Mobic] 15 mg PO DAILY PRN #30 tab 05/12/24 Allergies Allergy/AdvReac Type Severity Reaction Status Date / Time budesonide [From Symbicort] Allergy worse Verified 08/09/24 20:56 allergy symptoms formoterol [From Symbicort] Allergy worse Verified 08/09/24 20:56 allergy symptoms gabapentin Allergy Rash/Hives Verified 08/09/24 20:56 iodine Allergy Rash/Hives Verified 08/09/24 20:56 magnesium sulfate Allergy Rash/Hives Verified 08/09/24 20:56 [From Epsom Salt] methenamine [From Uribel] Allergy Rash/Hives Verified 08/09/24 20:56 methylene blue [From Uribel] Allergy Rash/Hives Verified 08/09/24 20:56 mold Allergy Dyspnea Verified 08/09/24 20:56 oxcarbazepine Allergy Rash/Hives Verified 08/09/24 20:56 [From Trileptal] pregabalin [From Lyrica] Allergy Rash/Hives Verified 08/09/24 20:56 salicylates [From Uribel] Allergy Rash/Hives Verified 08/09/24 20:56 sodium phosphate Allergy Rash/Hives Verified 08/09/24 20:56 [From Uribel] amitriptyline [From Elavil] AdvReac Edwards Verified 08/09/24 20:56 amoxicillin [From Augmentin] AdvReac Nausea & Verified 08/09/24 20:56 Vomiting clavulanic acid AdvReac Nausea & Verified 08/09/24 20:56 [From Augmentin] Vomiting dicyclomine [From Bentyl] AdvReac Rash/Hives Verified 08/09/24 20:56 levocetirizine [From Xyzal] AdvReac INSOMNIA Verified 08/09/24 20:56 montelukast [From Singulair] AdvReac "MAKES ME Verified 08/09/24 20:56 MENTALLY UNSTABLE" morphine AdvReac Abdominal Verified 08/09/24 20:56 Pain mushroom AdvReac Abdominal Verified 08/09/24 20:56 Pain NSAIDS (Non-Steroidal AdvReac Unknown Verified 08/09/24 20:56 Anti-Inflamma oats AdvReac Abdominal Verified 08/09/24 20:56 Pain Jyaaxfm-XCQ-ExE Reductase AdvReac joint Verified 08/09/24 20:56 Inhibitor inflammation [Yduapbc-Gnv-Zfx Reductase Inhibitor] Sulfa (Sulfonamide AdvReac Abdominal Verified 08/09/24 20:56 Antibiotics) Pain topiramate [From Topamax] AdvReac Edwards Verified 08/09/24 20:56 tree nut [Nut] AdvReac Abdominal Verified 08/09/24 20:56 Pain dust Allergy Dyspnea Uncoded 08/09/24 20:56 urin D Allergy Rash/Hives Uncoded 08/09/24 20:56 Review of Systems ROS Statement: Those systems with pertinent positive or pertinent negative responses have been documented in the HPI. ROS Other: All systems not noted in ROS Statement are negative. Past Medical History Past Medical History: Chest Pain / Angina, Diabetes Mellitus, Fibromyalgia, GERD/Reflux, Hypertension, Osteoarthritis (OA), Sleep Apnea/CPAP/BIPAP Additional Past Medical History / Comment(s): obesity, BOVINE AORTIC ARCH, POSSIBLE MS-ONGOING TESTS, BILAT CTR, ENLARGED LYMPH NODES IN THROAT, HERNIAS, USES C-PAP, PREDIABETIC. pelvic floor dysfunction. History of Any Multi-Drug Resistant Organisms: MRSA Date of last positivie culture/infection: 2005 MDRO Source:: unknown Past Surgical History: Bariatric Surgery, Cholecystectomy, Hysterectomy Additional Past Surgical History / Comment(s): gastric sleeve, eye surgery , COLONOSCOPY/EGD, THROAT SX 07/2020, LYMPH NODE AND SALIVARY GLAND REMOVED Past Anesthesia/Blood Transfusion Reactions: No Reported Reaction Past Psychological History: ADD/ADHD, Anxiety, Depression Smoking Status: Never smoker Past Alcohol Use History: None Reported Past Drug Use History: Marijuana - Past Family History Mother Family Medical History: Thyroid Disorder General Exam Limitations: no limitations General appearance: alert, in no apparent distress Head exam: Present: atraumatic, normocephalic, normal inspection Eye exam: Present: normal appearance, PERRL, EOMI. Absent: scleral icterus, conjunctival injection, periorbital swelling ENT exam: Present: normal exam, mucous membranes moist Neck exam: Present: normal inspection. Absent: tenderness, meningismus, lymphadenopathy Respiratory exam: Present: normal lung sounds bilaterally. Absent: respiratory distress, wheezes, rales, rhonchi, stridor Cardiovascular Exam: Present: regular rate, normal rhythm, normal heart sounds. Absent: systolic murmur, diastolic murmur, rubs, gallop, clicks GI/Abdominal exam: Present: soft, tenderness (Diffuse abdominal tenderness e specially LUQ, epigastric and left flank without guarding.), normal bowel sounds. Absent: distended, guarding, rebound, rigid Extremities exam: Present: normal inspection, full ROM, normal capillary refill. Absent: tenderness, pedal edema, joint swelling, calf tenderness Back exam: Present: normal inspection Neurological exam: Present: alert, oriented X3, CN II-XII intact Psychiatric exam: Present: normal affect, normal mood Skin exam: Present: warm, dry, intact, normal color. Absent: rash Course Vital Signs 08/09/24 08/09/24 08/09/24 11:08 13:46 16:03 Temperature 97.8 F 98.8 F Pulse Rate 76 74 68 Respiratory 18 18 18 Rate Blood Pressure 149/90 124/76 123/81 O2 Sat by Pulse 99 97 97 Oximetry Medical Decision Making - Medical Decision Making Was pt. sent in by a medical professional or institution (, PA, CLIN APPLICATION SPECIALIST, urgent care, hospital, or halfway...) When possible be specific @ -No Did you speak to anyone other than the patient for history (EMS, parent, family, police, friend...)? What history was obtained from this source @ -No Did you review nursing and triage notes (agree or disagree)? Why? @ -I reviewed and agree with nursing and triage notes Were old charts reviewed (outside hosp., previous admission, EMS record, old E KG, old radiological studies, urgent care reports/EKG's, halfway records)? Report findings @ -No old charts were reviewed Differential Diagnosis (chest pain, altered mental status, abdominal pain women, abdominal pain men, vaginal bleeding, weakness, fever, dyspnea, syncope, headache, dizziness, GI bleed, back pain, seizure, CVA, palpatations, mental health, musculoskeletal)? @ -Differential Abdominal Pain Women: Appendicitis, Cholecystitis, diverticulosis, ischemic bowel, pancreatitis, h epatitis, UTI, gastroenteritis, AAA, incarcerated hernia, bowel obstruction, constipation, inflammatory bowel, hepatitis, peptic ulcer disease, splenic infarction, perforated viscus, vulvitis, ovarian torsion, PID, kidney stone, placenta abruption, this is not meant to be an all-inclusive list EKG interpreted by me (3pts min.). @ -Sinus rhythm without ST deviation or T wave inversion. Is ventricular rate 66 bpm, KP 175 ms, QRS 93 ms, QTc 423 ms. X-rays interpreted by me (1pt min.). @ -CXR shows no acute cardiopulmonary process. CT interpreted by me (1pt min.). @ - A/P CT shows no acute changes within the abdomen or pelvis. U/S interpreted by me (1pt. min.). @ -RUQ ultrasound shows hepatomegaly with steatosis. Otherwise unremarkable with normal CBD and postcholecystectomy changes. What testing was considered but not performed or refused? (CT, X-rays, U/S, labs)? Why? @ -None What meds were considered but not given or refused? Why? @ -None Did you discuss the management of the patient with other professionals (pro fessionals i.e. , PA, CLIN APPLICATION SPECIALIST, lab, RT, psych nurse, social sciences professor, binder cutter, teacher, hospital chief financial officer, child welfare caseworker)? Give summary @ -Attempted contacting patient's data management analyst, Dr. Ingram, at his [facility] but received message stating clinic was closed for the weekend. Was smoking cessation discussed for >3mins.? @ -No Was critical care preformed (if so, how long)? @ -No Were there social determinants of health that impacted care today? How? (Homelessness, low income, unemployed, alcoholism, drug addiction, transportation, low edu. Level, literacy, decrease access to med. care, long-term, re hab)? @ -No Was there de-escalation of care discussed even if they declined (Discuss DNR or withdrawal of care, Hospice)? DNR status @ -No What co-morbidities impacted this encounter? (DM, HTN, Smoking, COPD, CAD, Cancer, CVA, ARF, Chemo, Hep., AIDS, mental health diagnosis, sleep apnea, morbid obesity)? @ -None Was patient admitted / discharged? Hospital course, mention meds given and route, prescriptions, significant lab abnormalities, going to OR and other pertinent info. @ -. Lab work shows WBC 3.28 and grossly elevated liver transaminase levels including total bilirubin 2.3, AST 1284, ALT 1800, alk phos 179. Lipase 349. Negative UA. Premedication prior to CT with contrast also ordered and provided. Unremarkable imaging except hepatomegaly with steatosis on ultrasound. Patient initially provided IV normal saline, Toradol, Dilaudid, Zofran and p.o. Tylenol for pain and nausea with significant relief noted by patient. Acute hepatitis panel ordered. Advised patient to follow-up with data management analyst for ongoing management. Discussed patient with Dr. Bright. Undiagnosed new problem with uncertain prognosis? @ -Elevated liver transaminase levels Drug Therapy requiring intensive monitoring for toxicity (Heparin, Nitro, Insulin, Cardizem)? @ -No Were any procedures done? @ -No Diagnosis/symptom? @ -Elevated liver transaminase Acute, or Chronic, or Acute on Chronic? @ -Acute Uncomplicated (without systemic symptoms) or Complicated (systemic symptoms)? @ -Complicated Side effects of treatment? @ -No Exacerbation, Progression, or Severe Exacerbation? @ -No Poses a threat to life or bodily function? How? (Chest pain, [place], [place], pneumonia, PE, COPD, DKA, ARF, appy, cholecystitis, CVA, Diverticulitis, Homicidal, Suicidal, threat to staff... and all critical care pts) @ -No - Lab Data Result diagrams: 08/09/24 11:54 08/09/24 11:54 Lab Results 08/09/24 08/09/24 08/09/24 Range/Units 11:54 11:54 11:54 WBC 3.28 L (4.50-10.00) 10*3/uL RBC 4.23 (4.10-5.20) 10*6/uL Hgb 12.3 (12.0-15.0) g/dL Hct 36.3 L (37.2-46.3) % MCV 85.8 (80.0-97.0) fL MCH 29.1 (27.0-32.0) pg MCHC 33.9 (32.0-37.0) g/dL Plt Count 288 (140-440) 10*3/uL MPV 10.1 (9.5-12.2) fL Immature Gran % (Auto) 0.3 % Neutrophils % 57.1 % Lymphocytes % 29.9 % Monocytes % 8.8 % Eosinophils % 2.4 % Basophils % 1.5 % Immature Gran # 0.01 (0.00-0.04) 10*3/uL Neutrophils # 1.87 (1.80-7.70) 10*3/uL Lymphocytes # 0.98 (0.90-5.00) 10*3/uL Monocytes # 0.29 (0.20-1.00) 10*3/uL Eosinophils # 0.08 (0.04-0.35) 10*3/uL Basophils # 0.05 (0.00-0.10) 10*3/uL PT 10.4 (10.0-12.5) sec INR 0.9 (<1.2) APTT 22.0 (22.0-30.0) sec Sodium 139 (137-145) mmol/L Potassium 3.8 (3.5-5.1) mmol/L Chloride 105 (98-107) mmol/L Carbon Dioxide 26 (22-30) mmol/L Anion Gap 8 mmol/L BUN 12 (7-17) mg/dL Creatinine 0.86 (0.52-1.04) mg/dL Est GFR (CKD-EPI)AfAm >90 (>60 ml/min/1.73 sqM) Est GFR (CKD-EPI)NonAf 84 (>60 ml/min/1.73 sqM) Glucose 105 H (74-99) mg/dL Plasma Lactic Acid Amador (0.7-2.0) mmol/L Calcium 9.1 (8.4-10.2) mg/dL Magnesium 1.9 (1.6-2.3) mg/dL Total Bilirubin 2.3 H (0.2-1.3) mg/dL AST 1284 H (14-36) U/L ALT 1800 H (4-34) U/L Alkaline Phosphatase 179 H (38-126) U/L Troponin I (0.000-0.034) ng/mL Total Protein 7.1 (6.3-8.2) g/dL Albumin 4.1 (3.5-5.0) g/dL Lipase 349 H (23-300) U/L Urine Color Urine Appearance (Clear) Urine pH (5.0-8.0) Ur Specific Dennison (1.001-1.035) Urine Protein (Negative) Urine Glucose (UA) (Negative) Urine Ketones (Negative) Urine Blood (Negative) Urine Nitrite (Negative) Urine Bilirubin (Negative) Urine Urobilinogen (<2.0) mg/dL Ur Leukocyte Esterase (Negative) 08/09/24 08/09/24 08/09/24 Range/Units 11:54 11:54 11:54 WBC (4.50-10.00) 10*3/uL RBC (4.10-5.20) 10*6/uL Hgb (12.0-15.0) g/dL Hct (37.2-46.3) % MCV (80.0-97.0) fL MCH (27.0-32.0) pg MCHC (32.0-37.0) g/dL Plt Count (140-440) 10*3/uL MPV (9.5-12.2) fL Immature Gran % (Auto) % Neutrophils % % Lymphocytes % % Monocytes % % Eosinophils % % Basophils % % Immature Gran # (0.00-0.04) 10*3/uL Neutrophils # (1.80-7.70) 10*3/uL Lymphocytes # (0.90-5.00) 10*3/uL Monocytes # (0.20-1.00) 10*3/uL Eosinophils # (0.04-0.35) 10*3/uL Basophils # (0.00-0.10) 10*3/uL PT (10.0-12.5) sec INR (<1.2) APTT (22.0-30.0) sec Sodium (137-145) mmol/L Potassium (3.5-5.1) mmol/L Chloride (98-107) mmol/L Carbon Dioxide (22-30) mmol/L Anion Gap mmol/L BUN (7-17) mg/dL Creatinine (0.52-1.04) mg/dL Est GFR (CKD-EPI)AfAm (>60 ml/min/1.73 sqM) Est GFR (CKD-EPI)NonAf (>60 ml/min/1.73 sqM) Glucose (74-99) mg/dL Plasma Lactic Acid Amador 1.0 (0.7-2.0) mmol/L Calcium (8.4-10.2) mg/dL Magnesium (1.6-2.3) mg/dL Total Bilirubin (0.2-1.3) mg/dL AST (14-36) U/L ALT (4-34) U/L Alkaline Phosphatase (38-126) U/L Troponin I <0.012 (0.000-0.034) ng/mL Total Protein (6.3-8.2) g/dL Albumin (3.5-5.0) g/dL Lipase (23-300) U/L Urine Color Yellow Urine Appearance Clear (Clear) Urine pH 5.5 (5.0-8.0) Ur Specific Dennison 1.007 (1.001-1.035) Urine Protein Negative (Negative) Urine Glucose (UA) Negative (Negative) Urine Ketones Negative (Negative) Urine Blood Negative (Negative) Urine Nitrite Negative (Negative) Urine Bilirubin Negative (Negative) Urine Urobilinogen <2.0 (<2.0) mg/dL Ur Leukocyte Esterase Negative (Negative) Disposition Clinical Impression: Elevated transaminase level Disposition: HOME SELF-CARE Condition: Fair Instructions (If sedation given, give patient instructions): Non-Alcoholic Fatty Liver Disease (ED) Additional Instructions: Follow-up with data management analyst on Sunday for further workup. Return to ER if experiencing worsening symptoms. Is patient prescribed a controlled substance at d/c from ED?: No Referrals: Ramana Lanza DO [Primary Care Provider] - 1-2 days Time of Disposition: 16:10
[2024-08-09 12:08] LABS: Basophils # (A) 0.05 10*3/uL (0.00-0.10); Basophils % (A) 1.5 %; Eosinophils # (A) 0.08 10*3/uL (0.04-0.35); Eosinophils % (A) 2.4 %; HCT 36.3 % (37.2-46.3); HGB 12.3 g/dL (12.0-15.0); Lymphocytes # (A) 0.98 10*3/uL (0.90-5.00); Lymphocytes % (A) 29.9 %; MCH 29.1 pg (27.0-32.0); MCHC 33.9 g/dL (32.0-37.0); MCV 85.8 fL (80.0-97.0); Mean Platelet Volume 10.1 fL (9.5-12.2); Monocytes # (A) 0.29 10*3/uL (0.20-1.00); Monocytes % (A) 8.8 %; Neutrophils # (A) 1.87 10*3/uL (1.80-7.70); Neutrophils % (A) 57.1 %; Platelet Count 288 10*3/uL (140-440); RBC 4.23 10*6/uL (4.10-5.20); RDW 14.1 % (11.5-14.5); WBC 3.28 10*3/uL (4.50-10.00)
[2024-08-09 12:09] LABS: Appearance,Urine Clear (Clear); Bilirubin,Urine Negative (Negative); Blood,Urine Negative (Negative); Color,Urine Yellow; Glucose,Urine (UA) Negative (Negative); Ketones,Urine Negative (Negative); Leukocyte Esterase,Urine Negative (Negative); Nitrite,Urine Negative (Negative); PH, Urine 5.5 (5.0-8.0); Protein,Urine Negative (Negative); Specific Gravity,Urine 1.007 (1.001-1.035); Urobilinogen,Urine <2.0 mg/dL (<2.0)
[2024-08-09 12:28] LABS: African American GFR (CKD) >90 (>60 ml/min/1.73 sqM); Albumin 4.1 g/dL (3.5-5.0); Alkaline Phosphatase 179 U/L (38-126); Anion Gap 8 mmol/L; Blood Urea Nitrogen 12 mg/dL (7-17); Calcium 9.1 mg/dL (8.4-10.2); Carbon Dioxide 26 mmol/L (22-30); Chloride 105 mmol/L (98-107); Glucose 105 mg/dL (74-99); Lipase 349 U/L (23-300); Magnesium 1.9 mg/dL (1.6-2.3); Non-African American GFR(CKD) 84 (>60 ml/min/1.73 sqM); Potassium 3.8 mmol/L (3.5-5.1); Sodium 139 mmol/L (137-145); Total Bilirubin 2.3 mg/dL (0.2-1.3); Total Protein 7.1 g/dL (6.3-8.2)
[2024-08-09] MEDS: HYDROmorphone 0.5 MG/0.5 ML SYRINGE IVP STA (12:29)
[2024-08-09] MEDS: ACETAMINOPHEN TAB 500 MG TAB PO STA (12:29)
[2024-08-09] MEDS: FAMOTIDINE 20 MG/2 ML VIAL IV STA (12:30)
[2024-08-09 12:31] LABS: INR 0.9 (<1.2); Prothrombin Time 10.4 sec (10.0-12.5)
[2024-08-09] MEDS: SODIUM CHLORIDE 0.9% 1,000 ML IV STA (12:32)
[2024-08-09] MEDS: KETOROLAC 15 MG/ML 1 ML VIAL IVP STA (12:32)
[2024-08-09] MEDS: ONDANSETRON 4 MG/2 ML VIAL IVP STA (12:33)
[2024-08-09] MEDS: diphenhydrAMINE 50 MG/ML 1 ML VIAL IVP STA (12:33)
[2024-08-09 12:36] LABS: ALT 1800 U/L (4-34); AST 1284 U/L (14-36)
[2024-08-09] MEDS: methylPREDNISolone SOD SUCCI 125 MG/2 ML VIAL IV STA (12:36)
--- NOTE | 2024-08-09 13:08 | XR ---
Chest, 2 view. CLINICAL INDICATION: Female, 44 years old with history of Diffuse abdominal pain, especially left raine e COMPARISON: TECHNIQUE: PA and lateral views the chest are obtained. FINDINGS: The lungs are clear and there is no consolidative or interstitial opacity. There is no pleural effusion or pneumothorax. The heart, pulmonary vasculature, mediastinum and rogelio appear normal. The osseous structures are intact. IMPRESSION: No significant abnormality seen. No acute cardiopulmonary disease. [facility], , 08/09/2024 1:05 PM
--- NOTE | 2024-08-09 13:13 | CT ---
EXAMINATION TYPE: CT abdomen pelvis w con DATE OF EXAM: 08/09/2024 COMPARISON: 03/16/2022 CLINICAL INDICATION: Female, 44 years old with history of Diffuse abdominal pain, especially left raine e; PHH, Diffuse abdominal pain, especially left side TECHNIQUE: Performed without Oral Contrast and with IV Contrast, patient injected with 100 ml mL of Isovue 300. CT DLP: 2423.[address] CTDI: mGy Automated exposure control for dose reduction was used. FINDINGS: The lung bases are clear. There are stable postsurgical changes in the stomach. There is surgical abs ence of the gallbladder. There is no biliary ductal dilatation. There is no focal mass or organomegaly involving the liver, pancreas, spleen or adrenal glands. There is no solid renal mass or hydronephrosis and there is homogeneous contrast enhancement of the r enal parenchyma. The caliber the abdominal aorta is normal is no retroperitoneal adenopathy or hemorr rusty. The bowel loops are normal in caliber and there is no evidence of dilatation or obstruction. No infla mmatory changes are identified in the bowel wall or mesentery. There is no free intraperitoneal air or fluid. No pelvic mass, free fluid, abscess or adenopathy. There is surgical absence of the uterus. The osseous structures and soft tissues are intact. IMPRESSION: No acute changes within the abdomen or pelvis. [facility], , 08/09/2024 1:10 PM
--- NOTE | 2024-08-09 15:06 | US ---
EXAMINATION TYPE: US gallbladder DATE OF EXAM: 08/09/2024 COMPARISON: NONE CLINICAL INDICATION: Female, 44 years old with history of Elevated LFTs, h/o cholecystectomy, check C BD; Cholecystectomy 2007, ruq pain, elevated LFTs TECHNIQUE: Grayscale and color Doppler imaging of the right upper quadrant was performed. FINDINGS: EXAM MEASUREMENTS: Liver Length: 19.4 cm Gallbladder Wall: Surgically absent CBD: 0.4 cm Right Kidney: 11.2x4.0x5.5 cm PROCEDURE ANALYST NOTES: Pancreas: Tail obscured by overlying bowel gas Liver: echogenic and enlarged Gallbladder: Surgically absent Evidence for sonographic Blue's sign: No CBD: wnl Right Kidney: wnl exam limited by overlying bowel gas and body habitus IMPRESSION: Hepatomegaly and increased hepatic parenchymal echogenicity suggesting steatosis. Otherwise, unremark able right upper quadrant ultrasound exam. CBD is normal in caliber measuring 4 mm in diameter status post previous cholecystectomy. [facility], , 08/09/2024 3:04 PM
[2024-08-09 16:05] VITALS: BP 123/81; PULSE 68; TEMP 98.8
[2024-08-10 00:38] LABS: Hepatitis A Antibody IgM Reactive (Nonreactive); Hepatitis B Core IgM Reactive (Nonreactive); Hepatitis B Surface Antigen Nonreactive (Nonreactive); Hepatitis C IgG Antibody Nonreactive (Nonreactive)
== END 2024-08-09 16:05 | disposition home or self-care (01) ==
LOC: EC 11:07
DX: R74.01 Elevation of levels of liver transaminase levels (principal); R16.0 Hepatomegaly, not elsewhere classified; E80.7 Disorder of bilirubin metabolism, unspecified; E66.9 Obesity, unspecified; Z88.0 Allergy status to penicillin; Z88.1 Allergy status to other antibiotic agents; Z88.2 Allergy status to sulfonamides; Z88.5 Allergy status to narcotic agent; Z88.6 Allergy status to analgesic agent; Z88.8 Allergy status to other drugs, medicaments and biological substances; Z91.041 Radiographic dye allergy status; Z91.09 Other allergy status, other than to drugs and biological substances; Z91.018 Allergy to other foods; Z68.41 Body mass index [BMI] 40.0-44.9, adult
CPT/HCPCS: 36415; 93005; 80053; 80074; 83605; 83690; 83735; 84484; 85025; 85610; 85730; 81003; 71046; 76705; 74177; 99285; 96374; 96375 ×5; 96361; J1200; J2405; J1885; J1171; Q9967; J2919; J1308

== ENCOUNTER 2024-08-09 20:51 | Observation (INO) | payer BC ==
--- NOTE | 2024-08-09 21:32 | ED ---
Recheck HPI - General Source: patient, RN notes reviewed Mode of arrival: ambulatory Limitations: no limitations <Rosalia Jung - Last Filed: 08/10/24 06:10> <Cindy Combs - Last Filed: 08/10/24 08:13> - General Chief Complaint: Recheck/Abnormal Lab/Rx Stated Complaint: abnormal labs - History of Present Illness Initial Comments: Patient is a 44-year-old female with a history significant for nonalcoholic fatty liver disease presenting for transaminitis. She states that she was here this morning with abdominal pain, found to have elevated transaminases, ultrasound unrevealing, and was discharged home. Patient reports that she routinely follows up with her cnc maintenance mechanic and notes that her transaminases/labs have always been within normal limits. She spoke with her cnc maintenance mechanic after discharge who recommended she return to get admitted. She also reports that she has had some sores on her tongue intermittently for a few weeks. She reports nausea, diarrhea, abdominal pain and bloating. She denies fever/chills, vomiting, dyspnea, chest pain. (Rosalia Jung) - Related Data Home Medications Medication Instructions Recorded Confirmed Aspirin [Adult Low Dose Aspirin EC] 81 mg PO HS 07/30/20 05/25/21 Atomoxetine HCl [Strattera] 60 mg PO DAILY 07/30/20 05/25/21 Isosorbide Mononitrate [Imdur] 120 mg PO BID 07/30/20 05/25/21 Lansoprazole [Prevacid] 30 mg PO BID 07/30/20 05/25/21 buPROPion XL [Wellbutrin XL] 150 mg PO DAILY 07/30/20 05/25/21 guanFACINE [Tenex] 2 mg PO HS 07/30/20 05/25/21 Desvenlafaxine Succinate [Pristiq 25 mg PO DAILY 12/08/20 05/25/21 ER] Ergocalciferol [Vitamin D2 (1250 1,250 mcg PO TH 01/12/21 05/25/21 Mcg = 69146 Iu)] Albuterol Nebulized [Ventolin 2.5 mg INHALATION RT-QID PRN 05/25/21 05/25/21 Nebulized] Albuterol Sulfate [Proair Hfa] 2 puff INHALATION RT-QID PRN 05/25/21 05/25/21 Fluticasone Propionate [Flovent 2 puff INHALATION RT-BID 05/25/21 05/25/21 Hfa 44 mcg] carvediloL [Coreg] 25 mg PO BID 05/25/21 05/25/21 hydrOXYzine pamoate [Vistaril] 100 mg PO HS 05/25/21 05/25/21 lamoTRIgine [LaMICtal] 25 mg PO BID 05/25/21 05/25/21 metFORMIN HCL 500 mg PO AC-BID 05/25/21 05/25/21 Previous Rx's Medication Instructions Recorded Lidocaine 5% Patch [Lidoderm 5% 1 patch TOPICAL DAILY PRN 7 Days 05/25/21 Patch] #7 patch Fexofenadine HCl [Ileana Allergy] 180 mg PO HS 30 Days #30 tab 09/28/21 Ondansetron [Zofran] 4 mg PO Q8HR PRN #9 tab 08/04/22 Nystatin 100,000 Unit/gm Powd 1 applic TOPICAL BID #30 gram 10/07/22 [Mycostatin Powder] Meloxicam [Mobic] 15 mg PO DAILY PRN #30 tab 05/12/24 Allergies Allergy/AdvReac Type Severity Reaction Status Date / Time budesonide [From Symbicort] Allergy worse Verified 08/09/24 20:56 allergy symptoms formoterol [From Symbicort] Allergy worse Verified 08/09/24 20:56 allergy symptoms gabapentin Allergy Rash/Hives Verified 08/09/24 20:56 iodine Allergy Rash/Hives Verified 08/09/24 20:56 magnesium sulfate Allergy Rash/Hives Verified 08/09/24 20:56 [From Epsom Salt] methenamine [From Uribel] Allergy Rash/Hives Verified 08/09/24 20:56 methylene blue [From Uribel] Allergy Rash/Hives Verified 08/09/24 20:56 mold Allergy Dyspnea Verified 08/09/24 20:56 oxcarbazepine Allergy Rash/Hives Verified 08/09/24 20:56 [From Trileptal] pregabalin [From Lyrica] Allergy Rash/Hives Verified 08/09/24 20:56 salicylates [From Uribel] Allergy Rash/Hives Verified 08/09/24 20:56 sodium phosphate Allergy Rash/Hives Verified 08/09/24 20:56 [From Uribel] amitriptyline [From Elavil] AdvReac Edwards Verified 08/09/24 20:56 amoxicillin [From Augmentin] AdvReac Nausea & Verified 08/09/24 20:56 Vomiting clavulanic acid AdvReac Nausea & Verified 08/09/24 20:56 [From Augmentin] Vomiting dicyclomine [From Bentyl] AdvReac Rash/Hives Verified 08/09/24 20:56 levocetirizine [From Xyzal] AdvReac INSOMNIA Verified 08/09/24 20:56 montelukast [From Singulair] AdvReac "MAKES ME Verified 08/09/24 20:56 MENTALLY UNSTABLE" morphine AdvReac Abdominal Verified 08/09/24 20:56 Pain mushroom AdvReac Abdominal Verified 08/09/24 20:56 Pain NSAIDS (Non-Steroidal AdvReac Unknown Verified 08/09/24 20:56 Anti-Inflamma oats AdvReac Abdominal Verified 08/09/24 20:56 Pain Wtggift-AXZ-WfT Reductase AdvReac joint Verified 08/09/24 20:56 Inhibitor inflammation [Shxwhtq-Uit-Jhg Reductase Inhibitor] Sulfa (Sulfonamide AdvReac Abdominal Verified 08/09/24 20:56 Antibiotics) Pain topiramate [From Topamax] AdvReac Edwards Verified 08/09/24 20:56 tree nut [Nut] AdvReac Abdominal Verified 08/09/24 20:56 Pain dust Allergy Dyspnea Uncoded 08/09/24 20:56 urin D Allergy Rash/Hives Uncoded 08/09/24 20:56 Review of Systems ROS Other: All systems not noted in ROS Statement are negative. Constitutional: Denies: fever, chills ENT: Reports: other (mouth pain/sores) Respiratory: Denies: cough, dyspnea Cardiovascular: Denies: chest pain Gastrointestinal: Reports: abdominal pain (epigastric), nausea, diarrhea, constipation. Denies: vomiting <Rosalia Jung - Last Filed: 08/10/24 06:10> ROS Other: All systems not noted in ROS Statement are negative. <Cindy Combs - Last Filed: 08/10/24 08:13> ROS Statement: Those systems with pertinent positive or pertinent negative responses have been documented in the HPI. Past Medical History Past Medical History: Chest Pain / Angina, Diabetes Mellitus, Fibromyalgia, GERD/Reflux, Hypertension, Osteoarthritis (OA), Sleep Apnea/CPAP/BIPAP Additional Past Medical History / Comment(s): obesity, BOVINE AORTIC ARCH, POSSIBLE MS-ONGOING TESTS, BILAT CTR, ENLARGED LYMPH NODES IN THROAT, HERNIAS, USES C-PAP, PREDIABETIC. pelvic floor dysfunction. History of Any Multi-Drug Resistant Organisms: MRSA Date of last positivie culture/infection: 2005 MDRO Source:: unknown Past Surgical History: Bariatric Surgery, Cholecystectomy, Hysterectomy Additional Past Surgical History / Comment(s): gastric sleeve, eye surgery , COLONOSCOPY/EGD, THROAT SX 07/2020, LYMPH NODE AND SALIVARY GLAND REMOVED Past Anesthesia/Blood Transfusion Reactions: No Reported Reaction Past Psychological History: ADD/ADHD, Anxiety, Depression Smoking Status: Never smoker Past Alcohol Use History: None Reported Past Drug Use History: Marijuana - Past Family History Mother Family Medical History: Thyroid Disorder <Rosalia Jung - Last Filed: 08/10/24 06:10> General Exam Limitations: no limitations General appearance: alert, in no apparent distress Head exam: Present: atraumatic Eye exam: Present: normal appearance. Absent: scleral icterus Neck exam: Present: normal inspection Respiratory exam: Present: normal lung sounds bilaterally. Absent: respiratory distress, wheezes, rales, rhonchi Cardiovascular Exam: Present: regular rate, normal rhythm, normal heart sounds GI/Abdominal exam: Present: soft, tenderness (Mild epigastric), normal bowel sounds. Absent: distended Extremities exam: Present: normal inspection. Absent: pedal edema Back exam: Absent: CVA tenderness (R), CVA tenderness (L) Neurological exam: Present: alert, oriented X3 Psychiatric exam: Present: normal affect, normal mood Skin exam: Present: warm, dry, intact, normal color <Rosalia Jung - Last Filed: 08/10/24 06:10> Course Vital Signs 08/09/24 08/10/24 08/10/24 20:52 00:03 02:00 Temperature 97.8 F Pulse Rate 69 78 76 Respiratory 20 18 18 Rate Blood Pressure 151/91 133/66 132/74 O2 Sat by Pulse 99 98 98 Oximetry 08/10/24 07:22 Temperature 97.8 F Pulse Rate 86 Respiratory 18 Rate Blood Pressure 124/68 O2 Sat by Pulse 97 Oximetry Medical Decision Making <Rosalia Jung - Last Filed: 08/10/24 06:10> - Lab Data Result diagrams: 08/10/24 06:05 08/10/24 06:05 <Cindy Combs - Last Filed: 08/10/24 08:13> - Medical Decision Making Was pt. sent in by a medical professional or institution (, [facility], [employer], urgent care, hospital, or alf...) When possible be specific @ -No Did you speak to anyone other than the patient for history (EMS, parent, family, police, friend...)? What history was obtained from this source @ -No Did you review nursing and triage notes (agree or disagree)? Why? @ -I reviewed and agree with nursing and triage notes Were old charts reviewed (outside hosp., previous admission, EMS record, old EKG, old radiological studies, urgent care reports/EKG's, alf records)? Report findings @ -Labs, ultrasound, and ED note from earlier today reviewed. Showed no stones in the CBD, elevated transaminases Differential Diagnosis? @ -Acute viral hepatitis, choledocholithiasis, primary sclerosing cholangitis, primary biliary cirrhosis, this is not meant to be an all-inclusive list . EKG interpreted by me (3pts min.). @ -As above X-rays interpreted by me (1pt min.). @ -None done CT interpreted by me (1pt min.). @ -None done U/S interpreted by me (1pt. min.). @ -None done What testing was considered but not performed or refused? (CT, X-rays, U/S, labs)? Why? @ -None What meds were considered but not given or refused? Why? @ -None Did you discuss the management of the patient with other professionals (professionals i.e. [facility] Vazquez, [employer], lab, RT, psych nurse, social worker aide, mounter sousaphones, teacher, protection officer, corrections caseworker)? Give summary @ -No Was smoking cessation discussed for >3mins.? @ -No Was critical care preformed (if so, how long)? @ -No Were there social determinants of health that impacted care today? How? (Homelessness, low income, unemployed, alcoholism, drug addiction, transportation, low edu. Level, literacy, decrease access to med. care, custodial, rehab)? @ -No Was there de-escalation of care discussed even if they declined (Discuss DNR or withdrawal of care, Hospice)? DNR status @ -No What co-morbidities impacted this encounter? (DM, HTN, Smoking, COPD, CAD, Cancer, CVA, ARF, Chemo, Hep., AIDS, mental health diagnosis, sleep apnea, morbid obesity)? @ -None Was patient admitted / discharged? Hospital course, mention meds given and route, prescriptions, significant lab abnormalities, going to OR and other pertinent info. @ -Patient is a 44-year-old female with history of nonalcoholic fatty liver disease presenting for elevated transaminases. She was discharged from the ER this morning and when she spoke with her neurologist and they recommended that she get admitted due to the elevated transaminases. I spoke with patient's cnc maintenance mechanic and he recommended mono, strep, and CMV testing with an admission for lab observation in the morning. Spoke with [facility] about patient and they accepted. Undiagnosed new problem with uncertain prognosis? @ -No Drug Therapy requiring intensive monitoring for toxicity (Heparin, Nitro, Insulin, Cardizem)? @ -No Were any procedures done? @ -No Diagnosis/symptom? @ -Elevated transaminases Acute, or Chronic, or Acute on Chronic? @ -Acute Uncomplicated (without systemic symptoms) or Complicated (systemic symptoms)? @ -Uncomplicated Side effects of treatment? @ -No Exacerbation, Progression, or Severe Exacerbation? @ -No Poses a threat to life or bodily function? How? (Chest pain, USA, NC, pneumonia, PE, COPD, DKA, ARF, appy, cholecystitis, CVA, Diverticulitis, Homicidal, Suicidal, threat to staff... and all critical care pts) @ -No (Rosalia Jung) I personally saw the patient and performed the critical portion of the service. I discussed the patient care with the resident physician. I directed management, care planning and final disposition of the patient. This includes, but not limited to, review of all lab work, radiological studies, EKG's, consultations, vital signs, and nursing notes. Critical care time of 0 minutes excluding separately billable procedures was spent in conjunction with critical care activities provided by the Resident and Attending simultaneously. I was present during no procedures for all critical portions of the procedure and as immediately available to furnish service during the entire procedure. (Cindy Combs) Disposition Is patient prescribed a controlled substance at d/c from ED?: No Time of Disposition: 23:27 <Rosalia Jung - Last Filed: 08/10/24 06:10> <Cindy Combs - Last Filed: 08/10/24 08:13> Clinical Impression: Elevated liver transaminase level Disposition: ADMITTED IP TO THIS HOSP Condition: Stable
[2024-08-09] MEDS ORDERED: NALOXONE 0.4 MG/ML 1 ML VIAL IV PRN (23:29)
[2024-08-09] MEDS ORDERED: IBUPROFEN 400 MG TAB PO PRN (23:29)
[2024-08-09] MEDS: SODIUM CHLORIDE 0.9% 1,000 ML IV SCH (23:55)
[2024-08-10] MEDS: traZODone HCL 50 MG TAB PO STA (03:48)
[2024-08-10 06:32] LABS: Basophils # (A) 0.02 10*3/uL (0.00-0.10); Basophils % (A) 0.4 %; Eosinophils # (A) 0.01 10*3/uL (0.04-0.35); Eosinophils % (A) 0.2 %; HCT 37.2 % (37.2-46.3); Lymphocytes # (A) 1.11 10*3/uL (0.90-5.00); Lymphocytes % (A) 20.5 %; MCH 28.6 pg (27.0-32.0); MCHC 32.3 g/dL (32.0-37.0); MCV 88.8 fL (80.0-97.0); Mean Platelet Volume 10.5 fL (9.5-12.2); Monocytes # (A) 0.41 10*3/uL (0.20-1.00); Monocytes % (A) 7.6 %; Neutrophils # (A) 3.85 10*3/uL (1.80-7.70); Neutrophils % (A) 70.9 %; Platelet Count 273 10*3/uL (140-440); RBC 4.19 10*6/uL (4.10-5.20); RDW 14.5 % (11.5-14.5); WBC 5.42 10*3/uL (4.50-10.00)
[2024-08-10 06:42] LABS: INR 0.9 (<1.2); Prothrombin Time 10.3 sec (10.0-12.5)
[2024-08-10 06:45] LABS: African American GFR (CKD) >90 (>60 ml/min/1.73 sqM); Albumin 4.1 g/dL (3.5-5.0); Albumin/Globulin Ratio 1.4; Alkaline Phosphatase 194 U/L (38-126); Anion Gap 7 mmol/L; Blood Urea Nitrogen 11 mg/dL (7-17); Calcium 9.6 mg/dL (8.4-10.2); Carbon Dioxide 25 mmol/L (22-30); Chloride 109 mmol/L (98-107); Globulin 2.9 g/dL; Glucose 119 mg/dL (74-99); Non-African American GFR(CKD) 90 (>60 ml/min/1.73 sqM); Potassium 4.2 mmol/L (3.5-5.1); Sodium 141 mmol/L (137-145); Total Bilirubin 1.5 mg/dL (0.2-1.3)
[2024-08-10 06:57] LABS: ALT 1770 U/L (4-34); AST 918 U/L (14-36)
[2024-08-10] MEDS: DOCUSATE 100 MG CAP PO PRN (13:08)
[2024-08-10] MEDS: VENLAFAXINE HCL ER 150 MG CAP PO SCH (13:57)
[2024-08-10] MEDS: MULTIVITAMINS, THERA 1 EACH TAB PO SCH (13:57)
[2024-08-10] MEDS: buPROPion XL 150 MG TAB.ER.24H PO SCH (13:58)
[2024-08-10] MEDS: VENLAFAXINE HCL ER 37.5 MG CAP PO SCH (13:58)
[2024-08-10] MEDS: MELOXICAM 7.5 MG TAB PO SCH (13:58)
[2024-08-10] MEDS: PROPRANOLOL 20 MG TAB PO SCH (14:00)
[2024-08-10] MEDS: NON FORMULARY DRUG (Vitamin B Complex [Vitamin B Complex] 1 EACH Capsule) PO SCH (14:03)
[2024-08-10] MEDS: [UNRECOGNIZED DRUG - OTHER] PO SCH (14:03)
[2024-08-10] MEDS: metFORMIN 500 MG TAB PO SCH (16:41)
[2024-08-10 16:50] LABS: INR 0.9 (<1.2); Prothrombin Time 10.4 sec (10.0-12.5)
[2024-08-10 16:55] LABS: C Reactive Protein 0.8 mg/dL (<1.0)
[2024-08-10] MEDS: LORATADINE 10 MG TAB PO SCH (20:22)
[2024-08-10] MEDS: MONTELUKAST 10 MG TAB PO SCH (20:22)
[2024-08-10] MEDS: CYCLOBENZAPRINE 10 MG TAB PO SCH (20:22)
[2024-08-10] MEDS: PANTOPRAZOLE 40 MG TABLET PO SCH (20:22)
[2024-08-10 23:58] LABS: Rheumatoid Factor, Qnt <15 IU/mL (0-15)
[2024-08-11 00:05] LABS: Hepatitis A Antibody IgM Reactive (Nonreactive); Hepatitis B Core IgM Reactive (Nonreactive); Hepatitis B Surface Antigen Nonreactive (Nonreactive); Hepatitis C IgG Antibody Nonreactive (Nonreactive)
[2024-08-11] MEDS: traZODone HCL 50 MG TAB PO ONE (00:56)
--- NOTE | 2024-08-11 02:30 | HP ---
HISTORY AND PHYSICAL CHIEF COMPLAINT: Abdominal discomfort and elevated LFTs. HISTORY OF PRESENT ILLNESS: This is a 44-year-old woman with a past medical history of multiple medical problems including nonalcoholic state of hepatitis, complaining of abdominal discomfort. LFTs elevated and the patient was discharged yesterday, but the patient came back because of recommendations of her grease cup filler. Currently, the bilirubin is 1.5, AST is 918 and ALT is 1770. CMV IgM is reported as positive also. There is no history of fever, rigors, chills at this time. PAST MEDICAL HISTORY: Reviewed includes diabetes, history of fibromyalgia, hypertension, sleep apnea, history of bovine aortic arch, history of MRSA, history of bariatric surgery, history of cholecystectomy, . HOME MEDICATIONS: Reviewed include Atarax. Dose and rest of medications reviewed. ALLERGIES: Multiple allergies including Symbicort, rest of allergies noted. FAMILY HISTORY: History of thyroid disorder. SOCIAL HISTORY: No history of smoking, THC. REVIEW OF SYSTEMS: 14-point review of systems is negative except as mentioned in history of present illness. PHYSICAL EXAMINATION: VITAL SIGNS: Pulse is 86, blood pressure 110/68, respirations 18. HEENT: Conjunctivae normal. CARDIOVASCULAR: S1 and S2 normal. RESPIRATIONS: Clear to auscultation. ABDOMEN: Soft, obese, mild diffuse discomfort. No guarding. No mass palpable. LEGS: No edema. NERVOUS SYSTEM: Nonfocal. LABORATORY DATA: Noted. ASSESSMENT: 1. Abdominal discomfort with elevated LFTs, possible hepatitis. 2. Acute CMV positive. 3. History of bariatric surgery. 4. Diabetes mellitus, type 2. 5. Fibromyalgia. 6. Hypertension. 7. History of degenerative joint disease. 8. History of bovine aortic arch. 9. History of possible MS. 10.History of cholecystectomy. 11.History of ADD, anxiety. RECOMMENDATIONS AND DISCUSSION: This 44-year-old woman presented with multiple complex medical issues. We will monitor the patient closely. I recommend to repeat labs. Avoid hepatotoxic and toxic medications. Infectious Disease evaluation. The patient had abdominal pelvis CAT scan yesterday, which showed no acute abnormality. The prognosis is still guarded. Further recommendations, I would also recommend acute hepatitis panel also. MMODL / IJN: [id number] / MTDD
--- NOTE | 2024-08-11 07:25 | P.CONS ---
History of Present Illness - Reason for Consult Consult date: 08/10/24 Hepatitis Requesting physician: Collin Marrufo - Chief Complaint Abdominal pain x few days - History of Present Illness Patient is a 44-year-old female with a past medical history significant forChest Pain / Angina, Diabetes Mellitus, Fibromyalgia, GERD/Reflux, Hypertension, Osteoarthritis (OA), Sleep Apnea/CPAP/BIPAP, MARRERO for which the patient do follow with a reverse unit operator at [facility], patient presented to [facility] on hospital yesterday for evaluation of abdominal pain and hematuria x 1 day patient pain has been mostly in the upper abdominal area describing the pain to be dull aching 6 out of 10 without radiation is also complaining of decreased urine output nausea and constipation patient presented to the hospital was afebrile did have a abdominal pelvis CT did not show any acute changes in abdominal pelvis patient did have a white count 3.28 liver isms are elevated with a bilirubin of 2.3, AST 1284 and ALT of 1800 lipase was 349, hepatitis C IgM reactive, hepatitis B surface antigen was negative and hepatitis C IgG negative patient was subsequently discharged home, however the patient did discuss her lab results with reverse unit operator who subsequently advised the patient to go back to the and the patient has presented back has been reevaluated by the ER physician patient did have a repeat blood work and liver isms are trending do wn with a bilirubin of 1.5 AST is 918 and ALT is 1770 patient currently on recall having any sick contact he denies having any fever or chills Review of Systems Positive point and negatives has been mentioned in the HPI, complete review of systems was performed and all other systems are negative Past Medical History Past Medical History: Chest Pain / Angina, Diabetes Mellitus, Fibromyalgia, GERD/Reflux, Hypertension, Osteoarthritis (OA), Sleep Apnea/CPAP/BIPAP Additional Past Medical History / Comment(s): obesity, BOVINE AORTIC ARCH, POSSIBLE MS-ONGOING TESTS, BILAT CTR, ENLARGED LYMPH NODES IN THROAT, HERNIAS, USES C-PAP, PREDIABETIC. pelvic floor dysfunction. History of Any Multi-Drug Resistant Organisms: MRSA Year Discovered:: 2005 MDRO Source:: unknown Past Surgical History: Bariatric Surgery, Cholecystectomy, Hysterectomy Additional Past Surgical History / Comment(s): gastric sleeve, eye surgery , COLONOSCOPY/EGD, THROAT SX 07/2020, LYMPH NODE AND SALIVARY GLAND REMOVED Past Anesthesia/Blood Transfusion Reactions: No Reported Reaction Past Psychological History: ADD/ADHD, Anxiety, Depression Smoking Status: Never smoker Past Alcohol Use History: None Reported Past Drug Use History: Marijuana - Past Family History Mother Family Medical History: Thyroid Disorder Medications and Allergies Home Medications Medication Instructions Recorded Confirmed Type Lansoprazole [Prevacid] 30 mg PO HS 07/30/20 08/10/24 History buPROPion XL [Wellbutrin XL] 150 mg PO DAILY 07/30/20 08/10/24 History Cyclobenzaprine [Flexeril] 10 mg PO HS 08/10/24 08/10/24 History Hormone Supplement 2 tab PO DAILY 08/10/24 08/10/24 History Levocetirizine Dihydrochloride 5 mg PO HS 08/10/24 08/10/24 History [Xyzal] Meloxicam [Mobic] 15 mg PO DAILY 08/10/24 08/10/24 History Methyltetrahydrofolate Glucosa 1 cap PO BID 08/10/24 08/10/24 History [Methylfolate] Montelukast [Singulair] 10 mg PO HS 08/10/24 08/10/24 History Multivit/Iron Sulf/Folic Acid 1 tab PO BID 08/10/24 08/10/24 History [Multivitamin with Iron] Propranolol [Inderal] 20 mg PO BID 08/10/24 08/10/24 History Super B Vitamin 1 tab PO DAILY 08/10/24 08/10/24 History Venlafaxine HCl ER [Effexor Xr] 37.5 mg PO DAILY 08/10/24 08/10/24 History Venlafaxine HCl [Effexor XR] 150 mg PO DAILY 08/10/24 08/10/24 History Vitamin B Complex 1 cap PO DAILY 08/10/24 08/10/24 History hydrOXYzine HCL [Atarax] 10 mg PO HS PRN 08/10/24 08/10/24 History metFORMIN HCL ER [Glucophage XR] 500 mg PO BID 08/10/24 08/10/24 History Allergies Allergy/AdvReac Type Severity Reaction Status Date / Time budesonide [From Symbicort] Allergy worse Verified 08/10/24 08:57 allergy symptoms formoterol [From Symbicort] Allergy worse Verified 08/10/24 08:57 allergy symptoms gabapentin Allergy Rash/Hives Verified 08/10/24 08:57 iodine Allergy Rash/Hives Verified 08/10/24 08:57 magnesium sulfate Allergy Rash/Hives Verified 08/10/24 08:57 [From Epsom Salt] methenamine [From Uribel] Allergy Rash/Hives Verified 08/10/24 08:57 methylene blue [From Uribel] Allergy Rash/Hives Verified 08/10/24 08:57 mold Allergy Dyspnea Verified 08/10/24 08:57 oxcarbazepine Allergy Rash/Hives Verified 08/10/24 08:57 [From Trileptal] pregabalin [From Lyrica] Allergy Rash/Hives Verified 08/10/24 08:57 salicylates [From Uribel] Allergy Rash/Hives Verified 08/10/24 08:57 sodium phosphate Allergy Rash/Hives Verified 08/10/24 08:57 [From Uribel] amitriptyline [From Elavil] AdvReac Edwards Verified 08/10/24 08:57 amoxicillin [From Augmentin] AdvReac Nausea & Verified 08/10/24 08:57 Vomiting clavulanic acid AdvReac Nausea & Verified 08/10/24 08:57 [From Augmentin] Vomiting dicyclomine [From Bentyl] AdvReac Rash/Hives Verified 08/10/24 08:57 levocetirizine [From Xyzal] AdvReac INSOMNIA Verified 08/10/24 08:57 montelukast [From Singulair] AdvReac "MAKES ME Verified 08/10/24 08:57 MENTALLY UNSTABLE" morphine AdvReac Abdominal Verified 08/10/24 08:57 Pain mushroom AdvReac Abdominal Verified 08/10/24 08:57 Pain NSAIDS (Non-Steroidal AdvReac Unknown Verified 08/10/24 08:57 Anti-Inflamma oats AdvReac Abdominal Verified 08/10/24 08:57 Pain Mswqxdr-WEL-UyW Reductase AdvReac joint Verified 08/10/24 08:57 Inhibitor inflammation [Ocefsac-Gqb-Zid Reductase Inhibitor] Sulfa (Sulfonamide AdvReac Abdominal Verified 08/10/24 08:57 Antibiotics) Pain topiramate [From Topamax] AdvReac Edwards Verified 08/10/24 08:57 tree nut [Nut] AdvReac Abdominal Verified 08/10/24 08:57 Pain dust Allergy Dyspnea Uncoded 08/10/24 08:57 urin D Allergy Rash/Hives Uncoded 08/10/24 08:57 Physical Exam Vitals: Vital Signs Temp Pulse Resp BP Pulse Ox 08/10/24 13:56 97.8 F 78 18 136/88 98 08/10/24 07:22 97.8 F 86 18 124/68 97 08/10/24 02:00 76 18 132/74 98 08/10/24 00:03 78 18 133/66 98 08/09/24 20:52 97.8 F 69 20 151/91 99 GENERAL DESCRIPTION: Middle-age female lying in bed, no distress. No tachypnea or accessory muscle of respiration use. HEENT: Shows Pallor , no scleral icterus. Oral mucous membrane is dry. No pharyngeal erythema or thrush NECK: Trachea central, no thyromegaly. LUNGS: Unlabored breathing. Clear to auscultation anteriorly. No wheeze or crackle. HEART: S1, S2, regular rate and rhythm. No loud murmur ABDOMEN: Soft, no tenderness , guarding or rigidity, no organomegaly EXTREMITIES: No edema of feet. SKIN: No rash, no masses palpable. NEUROLOGICAL: The patient is awake, alert, oriented x3, mood and affect normal. Results CBC & Chem 7: 08/10/24 06:05 08/10/24 06:05 Labs: Abnormal Lab Results - Last 24 Hours (Table) 08/09/24 08/10/24 08/10/24 Range/Units 23:51 06:05 06:05 Eosinophils # 0.01 L (0.04-0.35) 10*3/uL Chloride 109 H (98-107) mmol/L Glucose 119 H (74-99) mg/dL Total Bilirubin 1.5 H (0.2-1.3) mg/dL AST 918 H (14-36) U/L ALT 1770 H (4-34) U/L Alkaline Phosphatase 194 H (38-126) U/L CMV IgM Ab Reactive A (Nonreactive) Assessment and Plan (1) Hepatitis A Current Visit: Yes Status: Acute Code(s): B15.9 - HEPATITIS A WITHOUT HEPATIC COMA SNOMED Code(s): 37879697 (2) Hepatitis B Current Visit: Yes Status: Acute Code(s): B19.10 - UNSPECIFIED VIRAL HEPATITIS B WITHOUT HEPATIC COMA SNOMED Code(s): 62615223 (3) Elevated liver transaminase level Current Visit: Yes Status: Acute Code(s): R74.01 - ELEVATION OF LEVELS OF LIVER TRANSAMINASE LEVELS SNOMED Code(s): 661175969 Plan: 1patient presented to hospital with abdominal pain this patient did have elevated liver enzymes patient did have a hepatitis A IgM positive indicating current or recent hepatitis A infection the patient also have hepatitis B core IgM antibodies positive indicating of recent hepatitis B infection though hepatitis B surface antigen is negative concerning for possible coinfection on the top of CMV IgM antibodies positive as well all of them contributing to this picture of elevated liver enzymes. 2treatment will be mostly supportive. 3we will check hepatitis B E antigen as well as hepatitis B DNA. Multiple question and concerns were answered We will follow on clinical condition and cultures to further adjust medication if needed Thank you for this consultation we will follow the patient along with you Dictation was produced using [employer] dictation software. please excuse any grammatical, word or spelling errors. Time with Patient: Greater than 30
[2024-08-11 08:44] LABS: ALT 1174 U/L (8-44); AST 315 U/L (13-35); Albumin 3.9 g/dL (3.8-4.9); Albumin/Globulin Ratio 1.77 Ratio (1.60-3.17); Alkaline Phosphatase 203 U/L (41-126); BUN/Creat Ratio 13.67 Ratio (12.00-20.00); Blood Urea Nitrogen 12.3 mg/dL (9.0-27.0); Calcium 8.9 mg/dL (8.7-10.3); Chloride 108 mmol/L (96-109); Globulin 2.2 g/dL (1.6-3.3); Glucose 95 mg/dL (70-110); Potassium 4.3 mmol/L (3.5-5.5); Sodium 141 mmol/L (135-145); Total Bilirubin 0.5 mg/dL (0.3-1.2); Total Protein 6.1 g/dL (6.2-8.2)
[2024-08-11 09:41] LABS: Basophils # (A) 0.05 X 10*3/uL (0.00-0.10); Eosinophils # (A) 0.12 X 10*3/uL (0.04-0.35); Eosinophils % (A) 2.4 %; HCT 37.2 % (37.2-46.3); Lymphocytes # (A) 2.26 X 10*3/uL (0.90-5.00); Lymphocytes % (A) 45.9 %; MCHC 32.3 g/dL (32.0-37.0); MCV 89.9 FL (80.0-97.0); Monocytes # (A) 0.31 X 10*3/uL (0.20-1.00); Monocytes % (A) 6.3 %; NRBC Per 100 WBC 0 X 10*3/uL (0.00-0.01); Neutrophils # (A) 2.15 X 10*3/uL (1.80-7.70); Neutrophils % (A) 43.8 %; Platelet Count 286 X 10*3/uL (140-440); RBC 4.14 X 10*6/uL (4.10-5.20); RDW 14.8 % (11.5-14.5); WBC 4.92 X 10*3/uL (4.50-10.00)
[2024-08-11 12:29] LABS: Glucose,Whole Blood 81 mg/dL (70-110)
[2024-08-11 12:51] LABS: HIV 2 AB Non-Reactive (Non-Reactive); HIV AB P24 Non-Reactive (Non-Reactive); HIV P24 AG Non-Reactive (Non-Reactive)
[2024-08-11 12:51] LABS: EBV-EA (IgG) <0.2 AI; EBV-EBNA(IgG) >8.0; EBV-VCA (IgG) 7.6 AI; EBV-VCA (IgM) 0.3 AI
--- NOTE | 2024-08-11 14:58 | PN ---
PROGRESS NOTE DATE OF SERVICE: 08/11/2024 SUBJECTIVE: This 44-year-old woman who was admitted with abdominal discomfort, elevated LFTs, being closely monitored. At this time, hepatitis A is also positive. The patient is closely monitored. No chest pain. No palpitations. No fever. OBJECTIVE: VITAL SIGNS: Pulse is 61, blood pressure 143/80, and respirations 17. HEENT: Conjunctivae normal. CARDIOVASCULAR: S1 and S2. ABDOMEN: Soft. NERVOUS SYSTEM: Nonfocal. LABORATORY DATA: Reviewed. AST is improving, ALT is also improving. ASSESSMENT: 1. Abdominal discomfort and elevated LFTs, possible acute hepatitis A. 2. Acute CMV IgM positive. 3. History of bariatric surgery. 4. Diabetes mellitus, type 2. 5. Fibromyalgia. 6. Hypertension. 7. History of degenerative joint disease. 8. Multiple complex medical issues. RECOMMENDATIONS: I recommend to continue current management and symptomatic treatment. Otherwise, recommend repeat labs in the morning and avoid hepatotoxic medications and if the LFTs are improving and stable, the patient will be discharged in the next 24 hours with further plan is to follow up with the patient's primary hospice rn. Prognosis stable currently. MMODL / IJN: [id number] /
[2024-08-11 15:00] LABS: INR 0.9 (<1.2)
--- NOTE | 2024-08-11 16:36 | P.PN ---
Subjective Progress Note Date: 08/11/24 Principal diagnosis: Reason for follow-up is hepatitis Patient is a 44-year-old female with a past medical history significant forChest Pain / Angina, Diabetes Mellitus, Fibromyalgia, GERD/Reflux, Hypertension, Osteoarthritis (OA), Sleep Apnea/CPAP/BIPAP, MARRERO for which the patient do follow with a sprinkler repair technician at [facility] presented the hospital abdominal pain CT abdominal pelvis did not show any acute changes she did have elevated liver enzymes and did have hepatitis A IgM as well as anti-HBc IgM positive. On today's evaluation that is 08/11/2024, the patient continues to be afebrile, the patient is on room air and breathing comfortably, the Pt denies having any chest pain or cough, the patient mentions some improvement in the epigastric abdominal pain some nausea but no vomiting and did have a bowel movement no diarrhea. Patient white count is 4.92 bilirubin normalized to 0.5 AST is down to 315 ALT is down to 1174 HIV testing negative hepatitis B surface antigen negative Objective - Vital Signs Vital signs: Vital Signs Temp 97.9 F 08/11/24 07:49 Pulse 61 08/11/24 07:49 Resp 17 08/11/24 07:49 BP 143/88 08/11/24 07:49 Pulse Ox 98 08/11/24 07:49 FiO2 Intake & Output 08/10/24 08/11/24 08/11/24 18:59 06:59 18:59 Other: # Voids 2 # Bowel Movements 2 - Exam GENERAL DESCRIPTION: Middle-age female up in bed in no distress RESPIRATORY SYSTEM: Unlabored breathing , decreased breath sounds at bases HEART: S1 S2 regular rate and rhythm , ABDOMEN: Soft , no tenderness EXTREMITIES: No edema feet - Labs CBC & Chem 7: 08/11/24 04:36 08/11/24 04:36 Labs: Abnormal Lab Results - Last 24 Hours (Table) 08/09/24 08/10/24 08/11/24 Range/Units 23:51 16:02 04:36 RDW 14.8 H (11.5-14.5) % AST (13-35) U/L ALT (8-44) U/L Alkaline Phosphatase (41-126) U/L Total Protein (6.2-8.2) g/dL EBV Capsid Ag IgG Intrp Positive A (Negative) EBV Nuc Ag IgG Interp Positive A (Negative) Hepatitis A IgM Ab Reactive A (Nonreactive) Hep B Core IgM Ab Reactive A (Nonreactive) 08/11/24 Range/Units 04:36 RDW (11.5-14.5) % AST 315 H (13-35) U/L ALT 1174 H (8-44) U/L Alkaline Phosphatase 203 H (41-126) U/L Total Protein 6.1 L (6.2-8.2) g/dL EBV Capsid Ag IgG Intrp (Negative) EBV Nuc Ag IgG Interp (Negative) Hepatitis A IgM Ab (Nonreactive) Hep B Core IgM Ab (Nonreactive) Assessment and Plan (1) Hepatitis A Current Visit: Yes Status: Acute Code(s): B15.9 - HEPATITIS A WITHOUT HEPATIC COMA SNOMED Code(s): 60774771 (2) Hepatitis B Current Visit: Yes Status: Acute Code(s): B19.10 - UNSPECIFIED VIRAL HEPATITIS B WITHOUT HEPATIC COMA SNOMED Code(s): 14104384 (3) Elevated liver transaminase level Current Visit: Yes Status: Acute Code(s): R74.01 - ELEVATION OF LEVELS OF LIVER TRANSAMINASE LEVELS SNOMED Code(s): 981724707 Plan: 1patient presented to hospital with abdominal pain this patient did have elevated liver enzymes patient did have a hepatitis A IgM positive indicating current or recent hepatitis A infection the patient also have hepatitis B core IgM antibodies positive indicating of recent hepatitis B infection though hepatitis B surface antigen is negative concerning for possible coinfection on the top of CMV IgM antibodies positive as well all of them contributing to this picture of elevated liver enzymes. 2we are currently waiting for B E antigen as well as hepatitis B DNA. 3patient liver enzymes are improving continue with the current supportive treatment avoid hepatotoxic medication Multiple question and concerns were answered Dictation was produced using [employer] software. please excuse any grammatical, word or spelling errors. Time with Patient: Less than 30
[2024-08-11 16:51] LABS: Glucose,Whole Blood 124 mg/dL (70-110)
[2024-08-11 18:11] LABS: Hepatitis B Surface AB- Quant 15.5 mIU/mL
[2024-08-11 20:47] LABS: Glucose,Whole Blood 79 mg/dL (70-110)
[2024-08-11] MEDS: hydrOXYzine HCL 10 MG TAB PO PRN (23:03)
[2024-08-12 01:19] VITALS: TEMP 98.4
[2024-08-12 05:38] LABS: Hepatitis BE Antibody Nonreactive (Nonreactive); Hepatitis BE Antigen Nonreactive (Nonreactive)
[2024-08-12 06:07] LABS: Glucose,Whole Blood 91 mg/dL (70-110)
[2024-08-12 07:34] LABS: AST 137 U/L (14-36); African American GFR (CKD) 83 (>60 ml/min/1.73 sqM); Albumin 3.6 g/dL (3.5-5.0); Alkaline Phosphatase 163 U/L (38-126); Anion Gap 6 mmol/L; Blood Urea Nitrogen 15 mg/dL (7-17); Calcium 9.3 mg/dL (8.4-10.2); Carbon Dioxide 29 mmol/L (22-30); Chloride 106 mmol/L (98-107); Glucose 98 mg/dL (74-99); Non-African American GFR(CKD) 72 (>60 ml/min/1.73 sqM); Potassium 4.4 mmol/L (3.5-5.1); Sodium 141 mmol/L (137-145); Total Bilirubin 0.6 mg/dL (0.2-1.3); Total Protein 6.3 g/dL (6.3-8.2)
[2024-08-12 07:59] LABS: ALT 820 U/L (4-34)
[2024-08-12 08:35] LABS: Hepatitis B Virus DNA Not detected (Not detected); Hepatitis B Virus DNA, Quant <10 IU/mL (<10); Log HBV IU/mL <1.00 (<1.00)
[2024-08-12 09:07] LABS: Basophils # (A) 0.04 10*3/uL (0.00-0.10); Basophils % (A) 0.9 %; Eosinophils # (A) 0.16 10*3/uL (0.04-0.35); Eosinophils % (A) 3.5 %; HCT 37.7 % (37.2-46.3); HGB 12.2 g/dL (12.0-15.0); MCHC 32.4 g/dL (32.0-37.0); MCV 89.5 fL (80.0-97.0); Mean Platelet Volume 10.7 fL (9.5-12.2); Monocytes % (A) 6.5 %; Neutrophils # (A) 2.21 10*3/uL (1.80-7.70); Neutrophils % (A) 47.7 %; Platelet Count 264 10*3/uL (140-440); RBC 4.21 10*6/uL (4.10-5.20); WBC 4.63 10*3/uL (4.50-10.00)
[2024-08-12 09:20] VITALS: BP 150/99; PULSE 70; RESP 16
[2024-08-12 11:33] LABS: Glucose,Whole Blood 101 mg/dL (70-110)
--- NOTE | 2024-08-12 14:30 | P.PN ---
Subjective Progress Note Date: 08/12/24 Principal diagnosis: Reason for follow-up is hepatitis Patient is a 44-year-old female with a past medical history significant forChest Pain / Angina, Diabetes Mellitus, Fibromyalgia, GERD/Reflux, Hypertension, Osteoarthritis (OA), Sleep Apnea/CPAP/BIPAP, MARRERO for which the patient do follow with a fuel cell battery technician at [facility] presented the hospital abdominal pain CT abdominal pelvis did not show any acute changes she did have elevated liver enzymes and did have hepatitis A IgM as well as anti-HBc IgM positive. On today's evaluation that is 08/12/2024, Patient is afebrile patient is currently on room air and denies having any shortness of breath, the patient denies any chest pain or cough, the patient denies any nausea vomiting did not have any abdominal pain and did have some diarrhea no blood or mucus in the stool. The patient white count is 4.63, creatinine 0.97 bilirubin 0.6 AST is down to 137 ALT is down to 820 hepatitis B DNA negative HIV testing was negative Objective - Vital Signs Vital signs: Vital Signs Temp 98.4 F 08/12/24 07:00 Pulse 70 08/12/24 07:00 Resp 16 08/12/24 07:00 BP 150/99 08/12/24 07:00 Pulse Ox 98 08/12/24 07:00 FiO2 Intake & Output 08/11/24 08/12/24 08/12/24 18:59 06:59 18:59 Intake Total 210 Balance 210 Weight 124.738 kg Intake: Oral 210 Other: # Voids 3 2 # Bowel Movements 2 - Exam GENERAL DESCRIPTION: Middle-age female up in bed in no distress RESPIRATORY SYSTEM: Unlabored breathing , decreased breath sounds at bases HEART: S1 S2 regular rate and rhythm , ABDOMEN: Soft , no tenderness EXTREMITIES: No edema feet - Labs CBC & Chem 7: 08/12/24 06:19 08/12/24 06:19 Labs: Abnormal Lab Results - Last 24 Hours (Table) 08/09/24 08/11/24 08/11/24 Range/Units 23:51 07:41 16:49 POC Glucose (mg/dL) 124 H (70-110) mg/dL AST (14-36) U/L ALT (4-34) U/L Alkaline Phosphatase (38-126) U/L EBV Capsid Ag IgG Intrp Positive A (Negative) EBV Nuc Ag IgG Interp Positive A (Negative) Hep Bs Antibody A (Negative) 08/12/24 Range/Units 06:19 POC Glucose (mg/dL) (70-110) mg/dL AST 137 H (14-36) U/L ALT 820 H (4-34) U/L Alkaline Phosphatase 163 H (38-126) U/L EBV Capsid Ag IgG Intrp (Negative) EBV Nuc Ag IgG Interp (Negative) Hep Bs Antibody (Negative) Assessment and Plan (1) Hepatitis A Current Visit: Yes Status: Acute Code(s): B15.9 - HEPATITIS A WITHOUT HEPATIC COMA SNOMED Code(s): 09797182 (2) Hepatitis B Current Visit: Yes Status: Acute Code(s): B19.10 - UNSPECIFIED VIRAL HEPATITIS B WITHOUT HEPATIC COMA SNOMED Code(s): 12807604 (3) Elevated liver transaminase level Current Visit: Yes Status: Acute Code(s): R74.01 - ELEVATION OF LEVELS OF LIVER TRANSAMINASE LEVELS SNOMED Code(s): 329428766 Plan: 1patient presented to hospital with abdominal pain this patient did have elevated liver enzymes patient did have a hepatitis A IgM positive indicating current or recent hepatitis A infection the patient also have hepatitis B core IgM antibodies positive indicating of recent hepatitis B infection though hepatitis B surface antigen is negative concerning for possible coinfection on the top of CMV IgM antibodies positive as well all of them contributing to this picture of elevated liver enzymes. 2hepatitis B DNA negative that will rule out active infection with hepatitis B, HIV testing negative 3patient liver enzymes are improving continue with the current supportive treatment no need for antiviral Multiple question and concerns were answered Dictation was produced using [employer] dictation software. please excuse any grammatical, word or spelling errors. Time with Patient: Less than 30
--- NOTE | 2024-08-16 12:20 | P.DS ---
Providers Date of admission: 08/09/24 23:29 Expected date of discharge: 08/12/24 Attending physician: Junior Pineda Consults: 08/10/24 14:55 Consult Physician Routine Consulting Provider: Farhan Florence Consult Reason/Comments: hepatitis Do you want consulting provider notified?: Yes Primary care physician: Ramana Lanza DO Hospital Course: Final diagnosis Abdominal discomfort and elevated LFTs, likely secondary to acute hepatitis A Acute CMV IgM positive History of bariatric surgery Morbid obesity with a BMI of 43.1 Positive hepatitis B core IgM antibody indicating a recent hepatitis B infection Diabetes mellitus, type II History of fibromyalgia History of hypertension History of degenerative joint disease GI prophylaxis DVT prophylaxis Full code Discharge disposition Patient is being discharged in a stable condition with guarded prognosis to home. Patient will follow-up with Dr. Lanza in the outpatient setting upon discharge. Patient is to continue with close outpatient follow-up with hepatology as scheduled. Total time taken is greater than 35 minutes. Hospital course This is a 44-year-old female who was recently admitted with abdominal discomfort elevated LFTs and also noted to be hepatitis A positive. Patient having some abnormal stools although is showing some improvements. Patient reports to feeling fatigued and instructed patient will take some time and to follow-up closely outpatient with hepatology as well as primary care provider. Repeat labs are stable and LFTs are improving. Please refer to other dictations notes for further HPI. Currently no reports of chest pain, shortness of breath, or palpitations. Patient is afebrile. No reports of nausea or vomiting and patient is tolerating diet. Patient will be discharged home today. Guarded prognosis Physical exam: Gen: This is a 44-year-old female who is awake, alert and oriented x 3, well- developed, morbidly obese HEENT: Head is atraumatic, normocephalic. Pupils equal, round. Sclerae is anicteric. NECK: Supple. No JVD. No lymphadenopathy. No thyromegaly. LUNGS: Diminished breath sounds bilaterally otherwise clear to auscultation. No wheezes or rhonchi. No intercostal retractions. HEART: S1, S2 are muffled ABDOMEN: Soft. Morbidly obese bowel sounds are present. No masses. No tenderness. EXTREMITIES: No pedal edema. No calf tenderness. NEUROLOGICAL: Patient is awake, alert and oriented x3. Cranial nerves 2 through 12 are grossly intact. Please refer to medication reconciliation sheet for a list of medications. The impression and plan of care has been dictated by Marlyn Laurent, Nurse Practitioner as directed. Dr. Yaron MD I have performed a history and examination and MDM of this patient, discussed the same with the dictator, and agree with the dictator's assessment and plan as written ,documented as a scribe. Based on total visit time, I have performed more than 50% of the visit. Patient Condition at Discharge: Stable Plan - Discharge Summary Discharge Rx Participant: No New Discharge Prescriptions: New Docusate [Colace] 100 mg PO BID PRN cap PRN Reason: Constipation Continue buPROPion XL [Wellbutrin XL] 150 mg PO DAILY Propranolol [Inderal] 20 mg PO BID Cyclobenzaprine [Flexeril] 10 mg PO HS metFORMIN HCL ER [Glucophage XR] 500 mg PO BID Venlafaxine HCl [Effexor XR] 150 mg PO DAILY Methyltetrahydrofolate Glucosa [Methylfolate] 1 cap PO BID Levocetirizine Dihydrochloride [Xyzal] 5 mg PO HS Hormone Supplement 2 tab PO DAILY Vitamin B Complex 1 cap PO DAILY Super B Vitamin 1 tab PO DAILY Lansoprazole [Prevacid] 30 mg PO HS hydrOXYzine HCL [Atarax] 10 mg PO HS PRN PRN Reason: Itching Montelukast [Singulair] 10 mg PO HS Venlafaxine HCl ER [Effexor XR] 37.5 mg PO DAILY Meloxicam [Mobic] 15 mg PO DAILY Multivit/Iron Sulf/Folic Acid [Multivitamin with Iron] 1 tab PO BID Discharge Medication List Lansoprazole [Prevacid] 30 mg PO HS 07/30/20 [History] buPROPion XL [Wellbutrin XL] 150 mg PO DAILY 07/30/20 [History] Cyclobenzaprine [Flexeril] 10 mg PO HS 08/10/24 [History] Hormone Supplement 2 tab PO DAILY 08/10/24 [History] Levocetirizine Dihydrochloride [Xyzal] 5 mg PO HS 08/10/24 [History] Meloxicam [Mobic] 15 mg PO DAILY 08/10/24 [History] Methyltetrahydrofolate Glucosa [Methylfolate] 1 cap PO BID 08/10/24 [History] Montelukast [Singulair] 10 mg PO HS 08/10/24 [History] Multivit/Iron Sulf/Folic Acid [Multivitamin with Iron] 1 tab PO BID 08/10/24 [History] Propranolol [Inderal] 20 mg PO BID 08/10/24 [History] Super B Vitamin 1 tab PO DAILY 08/10/24 [History] Venlafaxine HCl ER [Effexor XR] 37.5 mg PO DAILY 08/10/24 [History] Venlafaxine HCl [Effexor XR] 150 mg PO DAILY 08/10/24 [History] Vitamin B Complex 1 cap PO DAILY 08/10/24 [History] hydrOXYzine HCL [Atarax] 10 mg PO HS PRN 08/10/24 [History] metFORMIN HCL ER [Glucophage XR] 500 mg PO BID 08/10/24 [History] Docusate [Colace] 100 mg PO BID PRN cap 08/12/24 [Rx] Follow up Appointment(s)/Referral(s): Ramana Lanza DO [Primary Care Provider] - 1-2 days (Please make appointment when office is open) Ambulatory/Diagnostic Orders: Complete Blood Count w/diff [LAB.AMB] Time Frame: 3 Days, Location: None Selected Patient Instructions/Handouts: Hepatitis A (DC), Hepatitis B (GEN), Acquired Cytomegalovirus (ED) Activity/Diet/Wound Care/Special Instructions: Activity limited until follow-up Follow-up with primary care provider on discharge Follow-up with your GI outpatient Repeat labs in 2 to 3 days Discharge Disposition: HOME SELF-CARE
== END 2024-08-12 13:33 | disposition home or self-care (01) ==
LOC: EC 20:51 → 6NMEDSUR 23:29 → 1SOBS 08-11 05:41
PROVIDERS: ADMIT Internal Medicine; ATTEND Internal Medicine
DX: B15.9 Hepatitis A without hepatic coma (principal); B19.10 Unspecified viral hepatitis B without hepatic coma; B25.9 Cytomegaloviral disease, unspecified; E11.9 Type 2 diabetes mellitus without complications; K21.9 Gastro-esophageal reflux disease without esophagitis; G47.30 Sleep apnea, unspecified; I10 Essential (primary) hypertension; F32.A Depression, unspecified; F41.9 Anxiety disorder, unspecified; M79.7 Fibromyalgia; M19.90 Unspecified osteoarthritis, unspecified site; E66.01 Morbid (severe) obesity due to excess calories; Z68.41 Body mass index [BMI] 40.0-44.9, adult; Z90.49 Acquired absence of other specified parts of digestive tract; Z98.84 Bariatric surgery status; Z79.1 Long term (current) use of non-steroidal anti-inflammatories (NSAID); Z79.82 Long term (current) use of aspirin; Z79.899 Other long term (current) drug therapy; Z79.51 Long term (current) use of inhaled steroids; Z79.84 Long term (current) use of oral hypoglycemic drugs; Z88.0 Allergy status to penicillin; Z88.5 Allergy status to narcotic agent; Z88.6 Allergy status to analgesic agent
CPT/HCPCS: 96361 ×3; 96360; 99284; 36415; 87651; 87350; 86707; 86665 ×2; 80053 ×3; 80074; 85652; 87517; 86663; 83690; 85025 ×3; 85610 ×2; 86140; 86706; 86431; 86664; 86644; 86645; 86038; 80143; 87390; G0378 ×4

== ENCOUNTER 2024-09-28 18:23 | Emergency (ER) | payer BC ==
[2024-09-28 19:13] LABS: Bacteria,Urine Rare /hpf; Bilirubin,Urine Negative (Negative); Blood,Urine Negative (Negative); Color,Urine Yellow; Glucose,Urine (UA) Negative (Negative); Ketones,Urine Negative (Negative); Leukocyte Esterase,Urine Negative (Negative); Mucus,Urine Rare /hpf; Nitrite,Urine Negative (Negative); PH, Urine 5.5 (5.0-8.0); Protein,Urine Negative (Negative); RBC,Urine 2 /hpf (0-5); Specific Gravity,Urine 1.035 (1.001-1.035); Squamous Epithelial Cell,Urine 33 /hpf (0-4); Urobilinogen,Urine <2.0 mg/dL (<2.0); WBC,Urine 2 /hpf (0-5)
--- NOTE | 2024-09-28 19:48 | ED ---
Female Urogenital HPI - General Chief complaint: Urogenital Stated complaint: Urogenital issues Time Seen by Provider: 09/28/24 18:28 Source: patient Mode of arrival: ambulatory Limitations: no limitations - History of Present Illness Initial comments: 44-year-old female presenting with chief complaint of blood in her urine. This happened earlier today. She has also been having some urgency and frequency for the past few days. She states that at times she is unable to make it to the restroom due to the urgency. No fevers. No abdominal pain or flank pain. No nausea or vomiting. - Related Data Home Medications Medication Instructions Recorded Confirmed Lansoprazole [Prevacid] 30 mg PO HS 07/30/20 08/10/24 buPROPion XL [Wellbutrin XL] 150 mg PO DAILY 07/30/20 08/10/24 Cyclobenzaprine [Flexeril] 10 mg PO HS 08/10/24 08/10/24 Hormone Supplement 2 tab PO DAILY 08/10/24 08/10/24 Levocetirizine Dihydrochloride 5 mg PO HS 08/10/24 08/10/24 [Xyzal] Meloxicam [Mobic] 15 mg PO DAILY 08/10/24 08/10/24 Methyltetrahydrofolate Glucosa 1 cap PO BID 08/10/24 08/10/24 [Methylfolate] Montelukast [Singulair] 10 mg PO HS 08/10/24 08/10/24 Multivit/Iron Sulf/Folic Acid 1 tab PO BID 08/10/24 08/10/24 [Multivitamin with Iron] Propranolol [Inderal] 20 mg PO BID 08/10/24 08/10/24 Super B Vitamin 1 tab PO DAILY 08/10/24 08/10/24 Venlafaxine HCl ER [Effexor XR] 37.5 mg PO DAILY 08/10/24 08/10/24 Venlafaxine HCl [Effexor XR] 150 mg PO DAILY 08/10/24 08/10/24 Vitamin B Complex 1 cap PO DAILY 08/10/24 08/10/24 hydrOXYzine HCL [Atarax] 10 mg PO HS PRN 08/10/24 08/10/24 metFORMIN HCL ER [Glucophage XR] 500 mg PO BID 08/10/24 08/10/24 Previous Rx's Medication Instructions Recorded Docusate [Colace] 100 mg PO BID PRN cap 08/12/24 Allergies Allergy/AdvReac Type Severity Reaction Status Date / Time budesonide [From Symbicort] Allergy worse Verified 09/28/24 18:27 allergy symptoms formoterol [From Symbicort] Allergy worse Verified 09/28/24 18:27 allergy symptoms gabapentin Allergy Rash/Hives Verified 09/28/24 18:27 iodine Allergy Rash/Hives Verified 09/28/24 18:27 magnesium sulfate Allergy Rash/Hives Verified 09/28/24 18:27 [From Epsom Salt] methenamine [From Uribel] Allergy Rash/Hives Verified 09/28/24 18:27 methylene blue [From Uribel] Allergy Rash/Hives Verified 09/28/24 18:27 mold Allergy Dyspnea Verified 09/28/24 18:27 oxcarbazepine Allergy Rash/Hives Verified 09/28/24 18:27 [From Trileptal] pregabalin [From Lyrica] Allergy Rash/Hives Verified 09/28/24 18:27 salicylates [From Uribel] Allergy Rash/Hives Verified 09/28/24 18:27 sodium phosphate Allergy Rash/Hives Verified 09/28/24 18:27 [From Uribel] amitriptyline [From Elavil] AdvReac Edwards Verified 09/28/24 18:27 amoxicillin [From Augmentin] AdvReac Nausea & Verified 09/28/24 18:27 Vomiting clavulanic acid AdvReac Nausea & Verified 09/28/24 18:27 [From Augmentin] Vomiting dicyclomine [From Bentyl] AdvReac Rash/Hives Verified 09/28/24 18:27 levocetirizine [From Xyzal] AdvReac INSOMNIA Verified 09/28/24 18:27 montelukast [From Singulair] AdvReac "MAKES ME Verified 09/28/24 18:27 MENTALLY UNSTABLE" morphine AdvReac Abdominal Verified 09/28/24 18:27 Pain mushroom AdvReac Abdominal Verified 09/28/24 18:27 Pain NSAIDS (Non-Steroidal AdvReac Unknown Verified 09/28/24 18:27 Anti-Inflamma oats AdvReac Abdominal Verified 09/28/24 18:27 Pain [id number] Reductase AdvReac joint Verified 09/28/24 18:27 Inhibitor inflammation [Qzjnara-Drd-Cub Reductase Inhibitor] Sulfa (Sulfonamide AdvReac Abdominal Verified 09/28/24 18:27 Antibiotics) Pain topiramate [From Topamax] AdvReac Edwards Verified 09/28/24 18:27 tree nut [Nut] AdvReac Abdominal Verified 09/28/24 18:27 Pain dust Allergy Dyspnea Uncoded 09/28/24 18:27 urin D Allergy Rash/Hives Uncoded 09/28/24 18:27 Review of Systems ROS Statement: Those systems with pertinent positive or pertinent negative responses have been documented in the HPI. ROS Other: All systems not noted in ROS Statement are negative. Past Medical History Past Medical History: Chest Pain / Angina, Diabetes Mellitus, Fibromyalgia, GERD/Reflux, Hypertension, Osteoarthritis (OA), Sleep Apnea/CPAP/BIPAP Additional Past Medical History / Comment(s): obesity, BOVINE AORTIC ARCH, POSSIBLE MS-ONGOING TESTS, BILAT CTR, ENLARGED LYMPH NODES IN THROAT, HERNIAS, USES C-PAP, PREDIABETIC. pelvic floor dysfunction, hepatitis A History of Any Multi-Drug Resistant Organisms: MRSA Date of last positivie culture/infection: 2005 MDRO Source:: unknown Past Surgical History: Bariatric Surgery, Cholecystectomy, Hysterectomy Additional Past Surgical History / Comment(s): gastric sleeve, eye surgery , COLONOSCOPY/EGD, THROAT SX 07/2020, LYMPH NODE AND SALIVARY GLAND REMOVED Past Anesthesia/Blood Transfusion Reactions: No Reported Reaction Past Psychological History: ADD/ADHD, Anxiety, Depression Smoking Status: Never smoker Past Alcohol Use History: None Reported Past Drug Use History: Marijuana - Past Family History Mother Family Medical History: Thyroid Disorder General Exam Limitations: no limitations General appearance: alert, in no apparent distress Head exam: Present: atraumatic, normocephalic, normal inspection Eye exam: Present: normal appearance, EOMI Neck exam: Present: normal inspection. Absent: meningismus Respiratory exam: Absent: respiratory distress Cardiovascular Exam: Present: regular rate GI/Abdominal exam: Present: soft. Absent: distended, tenderness, guarding, rebound, rigid Neurological exam: Present: alert, oriented X3 Psychiatric exam: Present: normal affect, normal mood Skin exam: Present: warm, dry, normal color Course Vital Signs 09/28/24 09/28/24 18:24 20:07 Temperature 98.0 F 98.1 F Pulse Rate 76 66 Respiratory 18 17 Rate Blood Pressure 144/85 130/83 O2 Sat by Pulse 99 100 Oximetry Medical Decision Making - Medical Decision Making Was pt. sent in by a medical professional or institution (KALYAN Vazquez, APPEALS COORDINATOR, urgent care, hospital, or fci...) When possible be specific @ -No Did you speak to anyone other than the patient for history (EMS, parent, family, police, friend...)? What history was obtained from this source @ -No Did you review nursing and triage notes (agree or disagree)? Why? @ -I reviewed and agree with nursing and triage notes Were old charts reviewed (outside hosp., previous admission, EMS record, old EKG, old radiological studies, urgent care reports/EKG's, fci records)? Report findings @ -No old charts were reviewed Differential Diagnosis (chest pain, altered mental status, abdominal pain women, abdominal pain men, vaginal bleeding, weakness, fever, dyspnea, syncope, headache, dizziness, GI bleed, back pain, seizure, CVA, palpatations, mental health, musculoskeletal)? @ -Differential includes UTI, kidney stone, cystitis, not an all-inclusive list EKG interpreted by me (3pts min.). @ -As above X-rays interpreted by me (1pt min.). @ -None done CT interpreted by me (1pt min.). @ -None done U/S interpreted by me (1pt. min.). @ -None done What testing was considered but not performed or refused? (CT, X-rays, U/S, labs)? Why? @ -None What meds were considered but not given or refused? Why? @ -None Did you discuss the management of the patient with other professionals (professionals i.e. KALYAN Vazquez, APPEALS COORDINATOR, lab, RT, psych nurse, drug abuse social worker, bunch breaker machine operator, teacher, training systems officer, case consultant)? Give summary @ -No Was smoking cessation discussed for >3mins.? @ -No Was critical care preformed (if so, how long)? @ -No Were there social determinants of health that impacted care today? How? (Homelessness, low income, unemployed, alcoholism, drug addiction, transportation, low edu. Level, literacy, decrease access to med. care, correction, rehab)? @ -No Was there de-escalation of care discussed even if they declined (Discuss DNR or withdrawal of care, Hospice)? DNR status @ -No What co-morbidities impacted this encounter? (DM, HTN, Smoking, COPD, CAD, Cancer, CVA, ARF, Chemo, Hep., AIDS, mental health diagnosis, sleep apnea, morbid obesity)? @ -None Was patient admitted / discharged? Hospital course, mention meds given and route, prescriptions, significant lab abnormalities, going to OR and other pertinent info. @ -44-year-old female presenting with chief complaint of urinary symptoms including hematuria today. History and physical examination are conducted. Urine is negative for blood. Does show signs of contamination with 33 squamous cells. Will be sent for culture. Patient is educated on today's findings. Instructed to follow-up with her PCP. Follow-up with PCP. Report back to ER with any new or worsening symptoms. Discussed return parameters and answered all questions. Patient conveyed verbal understanding and agreed to the plan. I discussed this case in detail with my attending Dr. Dickinson Undiagnosed new problem with uncertain prognosis? @ -No Drug Therapy requiring intensive monitoring for toxicity (Heparin, Nitro, Insulin, Cardizem)? @ -No Were any procedures done? @ -No Diagnosis/symptom? @ -Urinary urgency Acute, or Chronic, or Acute on Chronic? @ -Acute Uncomplicated (without systemic symptoms) or Complicated (systemic symptoms)? @ -Uncomplicated Side effects of treatment? @ -No Exacerbation, Progression, or Severe Exacerbation? @ -No Poses a threat to life or bodily function? How? (Chest pain, [place], [place], pneumonia, PE, COPD, DKA, ARF, appy, cholecystitis, CVA, Diverticulitis, Homicidal, Blanca cidal, threat to staff... and all critical care pts) @ -Unlikely - Lab Data Lab Results 09/28/24 Range/Units 18:54 Urine Color Yellow Urine Appearance Cloudy H (Clear) Urine pH 5.5 (5.0-8.0) Ur Specific [place] 1.035 (1.001-1.035) Urine Protein Negative (Negative) Urine Glucose (UA) Negative (Negative) Urine Ketones Negative (Negative) Urine Blood Negative (Negative) Urine Nitrite Negative (Negative) Urine Bilirubin Negative (Negative) Urine Urobilinogen <2.0 (<2.0) mg/dL Ur Leukocyte Esterase Negative (Negative) Urine RBC 2 (0-5) /hpf Urine WBC 2 (0-5) /hpf Ur Squamous Epith Cells 33 H (0-4) /hpf Urine Bacteria Rare H (None) /hpf Urine Mucus Rare H (None) /hpf Disposition Clinical Impression: Urinary urgency Disposition: HOME SELF-CARE Condition: Good Additional Instructions: Follow-up with PCP. Report back to ER with any new or worsening symptoms. Is patient prescribed a controlled substance at d/c from ED?: No Referrals: Ramana Lanza DO [Primary Care Provider] - 1-2 days Time of Disposition: 19:48
[2024-09-28 20:10] VITALS: BP 130/83; PULSE 66; RESP 17; TEMP 98.1
== END 2024-09-28 20:09 | disposition home or self-care (01) ==
LOC: EC 18:23
DX: R39.15 Urgency of urination (principal); Z88.2 Allergy status to sulfonamides; Z88.5 Allergy status to narcotic agent; Z88.6 Allergy status to analgesic agent; Z88.8 Allergy status to other drugs, medicaments and biological substances; Z88.0 Allergy status to penicillin; Z88.1 Allergy status to other antibiotic agents
CPT/HCPCS: 81001; 99283